=== PATIENT | male | born 1935 | race Caucasian/White ===

== ENCOUNTER 2018-01-28 10:45 | Inpatient (IN) | payer OTHER, MEDICARE ==
[2018-01-28] MEDS ORDERED: PANTOPRAZOLE 40 MG INJ ONE ×2 (11:57→21:37)
[2018-01-28] MEDS: PANTOPRAZOLE INJ 80 MG in NA CHLORIDE 0.9% 250 ML IV SCH ×2 (12:00→21:27)
--- NOTE | 2018-01-28 12:04 | RAD REPORT ---
EXAM DESCRIPTION: CT - Head Brain Wo Cont - 01/28/2018 11:54 am CLINICAL HISTORY: Dizziness, fall, head injury. COMPARISON: None. TECHNIQUE: All CT scans are performed using dose optimization technique as appropriate and may inclu de automated exposure control or mA/KV adjustment according to patient size. FINDINGS: No intracranial hemorrhage, hydrocephalus or extra-axial fluid collection.Moderate general ized brain atrophy is noted.No areas of brain edema or evidence of midline shift. The paranasal sinuses and mastoids are clear. The calvarium is intact. IMPRESSION: No acute intracranial abnormality.
[2018-01-28 12:05] LABS: Absolute Lymphocytes (CBC) 2.1 K/uL (0.7-4.9); Absolute Monocytes 0.6 K/uL (0.1-1.3); Absolute Neutrophil 10.7 K/uL (1.8-8.0); Basophils % 0.3 % (0-1.3); Eosinophils % 0.1 % (0-4.4); Hematocrit 28.8 % (39.6-49.0); MCH 27.8 pg (27.0-35.0); MCV 87.4 fL (80-100); Monocytes % 4.1 % (3.3-12.3); RBC Red Blood Cell Count 3.29 M/uL (4.33-5.43)
--- NOTE | 2018-01-28 12:08 | RAD REPORT ---
EXAM DESCRIPTION: CT - Abdomen Pelvis Wo Contrast - 01/28/2018 11:56 am CLINICAL HISTORY: Abdominal pain. GI bleed. COMPARISON: 05/05/2011 TECHNIQUE: CT imaging of the abdomen and pelvis was performed without contrast. Solid organ, bowel a nd vascular assessment is limited due to lack of IV and oral contrast. All CT scans are performed using dose optimization technique as appropriate and may include automated exposure control or mA/KV adjustment according to patient size. FINDINGS: The lower lung sweeney are clear. The liver, spleen, pancreas, adrenal glands and kidneys are within normal limits for a limited non-co ntrast examination. No bowel obstruction, free air, free fluid or abscess. The appendix is normal. Sigmoid diverticulosi s coli is seen. The osseous structures are within normal limits.Fat containing inguinal hernias are present, slightly larger on the left. IMPRESSION: No acute intra-abdominal or pelvic findings. Sigmoid diverticulosis coli without diverticulitis. Fat containing inguinal hernias bilaterally, slightly greater on the left. A limited non-contrast examination was performed as detailed.
--- NOTE | 2018-01-28 12:08 | RAD REPORT ---
EXAM DESCRIPTION: RAD - Chest Single View - 01/28/2018 12:04 pm CLINICAL HISTORY: Diabetes, chest pain COMPARISON: 03/08/2014, 05/05/2011 FINDINGS: Portable technique limits examination quality. The lungs are grossly clear. The heart is normal in size. No displaced fractures. IMPRESSION: No acute intrathoracic process suspected.
[2018-01-28] MEDS ORDERED: NA CHLORIDE 0.9% 1,000 ML ONE ×2 (12:11→13:45)
[2018-01-28 12:12] LABS: Protime INR 1.15
[2018-01-28 12:17] LABS: Potassium 4.5 mEq/L (3.6-5.0)
[2018-01-28 12:23] LABS: Albumin 3.9 g/dL (3.2-5.5); Bilirubin Direct 0.1 mg/dL (0-0.2); Bilirubin Total 0.5 mg/dL (0.3-1.2); Magnesium 1.9 mg/dL (1.8-2.5); Protein, Total 6.7 g/dL (6.0-8.3)
[2018-01-28 12:25] LABS: CKMB Creatine Kinase MB 5.5 ng/ml (0.3-4.0)
--- NOTE | 2018-01-28 13:07 | ER ---
Nurse's Notes [facility] Name: Bryn Richards Age: 83 yrs Sex: Male : 1935 Arrival Date: 01/28/2018 Time: 10:45 Bed 20 Private MD: Fazal Lentz E Diagnosis: Gastrointestinal hemorrhage, unspecified;Anemia, unspecified;Unspecified atrial fibrillation Presentation: 01/28 10:59 Presenting complaint: Patient states: Decreased appetite, diarrhea, and difficulty hb sleeping x 3 days, dizziness x 2 days. Dizziness is worse when he stands up. Transition of care: patient was not received from another setting of care. Onset of symptoms is unknown. Care prior to arrival: None. 10:59 Method Of Arrival: Wheelchair hb 10:59 Acuity: CORBY 3 hb Triage Assessment: 11:29 General: Appears in no apparent distress. uncomfortable, Behavior is calm, cooperative, hj appropriate for age. Pain: Denies pain. EENT: No signs and/or symptoms were reported regarding the EENT system. Neuro: Level of Consciousness is awake, alert, obeys commands, Oriented to person, place, time, situation, Appropriate for age. Neuro: Reports dizziness. Cardiovascular: Capillary refill < 3 seconds Patient's skin is warm and dry. Respiratory: Airway is patent Respiratory effort is even, unlabored, Respiratory pattern is regular, symmetrical. GI: No signs and/or symptoms were reported involving the gastrointestinal system. GI: Reports diarrhea, nausea, vomiting. : No signs and/or symptoms were reported regarding the genitourinary system. Derm: No signs and/or symptoms reported regarding the dermatologic system. Musculoskeletal: No signs and/or symptoms reported regarding the musculoskeletal system. Historical: - Allergies: 11:06 PENICILLINS; hb 11:06 Prednisone; hb 11:06 Amiodarone; hb 11:06 Multaq; hb - Home Meds: 11:06 Calcium Carbonate Oral [Active]; clopidogrel 75 mg oral tab 1 tab once daily [Active]; hb finasteride 5 mg oral tab 1 tab once daily [Active]; gabapentin 300 mg oral cap 1 cap 3 times per day [Active]; glipizide 5 mg Oral tab 1 tab 2 times per day [Active]; Januvia 100 mg oral tab 1 tab once daily [Active]; losartan 50 mg oral tab 1 tab once daily [Active]; Metoprolol Tartrate Oral [Active]; Pravachol 40 mg Oral tab 1 tab once daily [Active]; tamsulosin 0.4 mg oral cp24 1 cap once daily [Active]; vitamin K59-ttuih acid 500-400 mcg oral tab [Active]; Xarelto 15 mg oral tab [Active]; - PMHx: 11:06 Diabetes - NIDDM; Atrial Fib; hb - PSHx: 11:06 Heart stents; back; Left elbow; Prostate CA; hb - Immunization history:: Adult Immunizations up to date. - Social history:: Smoking status: Patient/guardian denies using tobacco. Screenin:29 Abuse screen: Denies threats or abuse. Denies injuries from another. Nutritional hj screening: No deficits noted. Tuberculosis screening: No symptoms or risk factors identified. Fall Risk None identified. Assessment: 11:31 Reassessment: see triage assessment;. hj 12:30 Reassessment: Patient and/or family updated on plan of care and expected duration. Pain hj level reassessed. Patient is alert, oriented x 3, equal unlabored respirations, skin warm/dry/pink. 13:30 Reassessment: Patient and/or family updated on plan of care and expected duration. Pain hj level reassessed. Patient is alert, oriented x 3, equal unlabored respirations, skin warm/dry/pink. Patient states feeling better. Patient states symptoms have improved. 14:12 Reassessment: Patient and/or family updated on plan of care and expected duration. Pain hj level reassessed. Patient is alert, oriented x 3, equal unlabored respirations, skin warm/dry/pink. for admit; awaiting orders;. 15:26 Reassessment: Patient and/or family updated on plan of care and expected duration. Pain hj level reassessed. Patient is alert, oriented x 3, equal unlabored respirations, skin warm/dry/pink. to ICU bed 2;. 16:22 Reassessment: ICU nurse informed about nursing order on [employer] and platelets need to hj be infused before midnight tonight per exp date;. Vital Signs: 11:01 BP 101 / 52; Pulse 89; Resp 18; Temp 97.5(O); Pulse Ox 100% ; Pain 0/10; hb 11:30 BP 89 / 45; Pulse 90; Resp 18; Pulse Ox 100% on R/A; hj 12:22 BP 92 / 53; Pulse 93; Resp 18; Pulse Ox 100% on R/A; hj 12:48 BP 99 / 60; Pulse 86; Resp 18; Pulse Ox 100% on R/A; hj 12:59 BP 112 / 55; Pulse 82; Resp 18; Pulse Ox 100% on R/A; hj 13:30 BP 115 / 56; Pulse 85; Resp 18; Pulse Ox 100% on R/A; hj 14:11 BP 114 / 57; Pulse 83; Resp 18; Pulse Ox 100% on R/A; hj 15:26 BP 117 / 62; Pulse 85; Resp 18; Pulse Ox 10% on R/A; hj 16:23 BP 115 / 65; Pulse 84; Resp 18; Pulse Ox 100% on R/A; hj ED Course: 10:45 Patient arrived in ED. as 10:45 Fazal Lentz MD is Private Physician. as 11:01 Triage completed. hb 11:01 Arm band placed on right wrist. hb 11:07 George Calderón RN is Primary Nurse. hj 11:12 Bryce Decker NP is PHCP. pm1 11:12 Siddhartha Cornejo MD is Attending Physician. pm1 11:31 Patient has correct armband on for positive identification. Placed in gown. Bed in low hj position. Call light in reach. Side rails up X 1. Adult w/ patient. 11:51 Initial lab(s) drawn, by me, sent to lab. EKG done, by ED staff, reviewed by Bryce Decker [employer] PL[employer] MECH[employer]IC. Inserted saline lock: 22 gauge in right antecubital area, using aseptic technique. Blood collected. 11:53 Inserted saline lock: 22 gauge in left wrist, using aseptic technique. hj 11:54 CT completed. Patient moved to CT via stretcher. Patient moved back from CT. cw1 11:54 CT Head Brain wo Cont In Process Unspecified. EDMS 11:57 CT Abd/Pelvis - Without Cont In Process Unspecified. EDMS 12:02 X-ray completed. Patient tolerated procedure well. kp1 12:03 XRAY Chest (1 view) In Process Unspecified. EDMS 13:04 Janeth Baez MD is Hospitalizing Provider. pm1 15:33 No provider procedures requiring assistance completed. Patient admitted, IV remains in hj place. intact. Administered Medications: 11:35 Drug: ProTONIX 40 mg Route: IVP; Site: left wrist; hj 12:16 Follow up: Response: No adverse reaction hj 12:11 Drug: NS 0.9% 1000 ml Route: IV; Rate: 1000 ml; Site: right antecubital; hj 15:27 Follow up: IV Status: Completed infusion hj 12:12 Drug: ProTONIX 8 mg/hr Route: IV; Rate: 25 ml/hr; Site: left wrist; hj 15:14 Follow up: IV Status: Infusion continued upon admission hj 13:24 Drug: NS 0.9% 1000 ml Route: IV; Rate: 100 ml/hr; Site: right antecubital; hj 13:28 Follow up: IV Status: Infusion continued upon admission Outcome: 13:06 Decision to Hospitalize by Provider. pm1 15:33 Admitted to ICU accompanied by nurse, family with patient, via wheelchair, room 2, with chart, Report called to PEGGY Odell 15:33 Condition: stable 15:33 Instructed on the need for admit, Demonstrated understanding of instructions. 16:23 Patient left the ED. Signatures: Dispatcher [employer] EDMS Waqar Grubbs jb1 uSsan Lyle Crystal cw1 George Calderón RN RN Bryce Kowalski NP [employer]CH[employer] pm1 Chantale Claros RN RN Fariba Arguelles kp1 Corrections: (The following items were deleted from the chart) 11:06 11:01 Pulse 89bpm; Resp 18bpm; Pulse Ox 100%; Temp 97.5F Oral; Pain 0/10; hb hb
--- NOTE | 2018-01-28 13:07 | EDPHYS ---
Physician Documentation [facility] Name: Bryn Richards Age: 83 yrs Sex: Male : 1935 Arrival Date: 01/28/2018 Time: 10:45 Bed 20 Private MD: Fazal Lentz E ED Physician Siddhartha Cornejo HPI: 01/28 12:00 This 83 yrs old Male presents to ER via Wheelchair with complaints of pm1 Dizziness. 12:00 The patient presents with generalized weakness, and melena. Onset: The symptoms/episode pm1 began/occurred 2 day(s) ago. Context: occurred at home. Associated signs and symptoms: Pertinent negatives: abdominal pain, chest pain, nausea, shortness of breath, vomiting. Patient's baseline: Neuro: alert and fully oriented, Motor: no deficits, Ambulation: walks without assistance, The patient has a previous history of Atrial fibrillation on Xarelto and Plavix. The patient has not experienced similar symptoms in the past. The patient has not recently seen a physician, the patient's primary care provider is Dr. Fazal Lentz. Patient with complaints of dizziness for 2 days with onset of black tarry diarrhea yesterday. No nausea or vomiting. Patient's dizziness occurs with changes in position. No chest pain or shortness of breath. Patient reports fall about 1-2 weeks ago. Tripped while sweeping outside. Hit his head on the ground with contusion to occipital area and abrasion to left forearm. No LOC. No headache or neck pain. 12:00 Black tarry bowel movement, total 3 episodes. Twice yesterday and once today.. pm1 Historical: - Allergies: 11:06 PENICILLINS; hb 11:06 Prednisone; hb 11:06 Amiodarone; hb 11:06 Multaq; hb - Home Meds: 11:06 Calcium Carbonate Oral [Active]; clopidogrel 75 mg oral tab 1 tab once daily [Active]; hb finasteride 5 mg oral tab 1 tab once daily [Active]; gabapentin 300 mg oral cap 1 cap 3 times per day [Active]; glipizide 5 mg Oral tab 1 tab 2 times per day [Active]; Januvia 100 mg oral tab 1 tab once daily [Active]; losartan 50 mg oral tab 1 tab once daily [Active]; Metoprolol Tartrate Oral [Active]; Pravachol 40 mg Oral tab 1 tab once daily [Active]; tamsulosin 0.4 mg oral cp24 1 cap once daily [Active]; vitamin I68-xrnfx acid 500-400 mcg oral tab [Active]; Xarelto 15 mg oral tab [Active]; - PMHx: 11:06 Diabetes - NIDDM; Atrial Fib; hb - PSHx: 11:06 Heart stents; back; Left elbow; Prostate CA; hb - Immunization history:: Adult Immunizations up to date. - Social history:: Smoking status: Patient/guardian denies using tobacco. ROS: 12:00 Constitutional: Negative for fever, chills, and weight loss, Eyes: Negative for injury, pm1 pain, redness, and discharge, ENT: Negative for injury, pain, and discharge, Neck: Negative for injury, pain, and swelling, Cardiovascular: Negative for chest pain, palpitations, and edema, Respiratory: Negative for shortness of breath, cough, wheezing, and pleuritic chest pain. 12:00 Back: Negative for injury and pain, : Negative for injury, bleeding, discharge, and swelling, MS/Extremity: Negative for injury and deformity, Skin: Negative for injury, rash, and discoloration. 12:00 Abdomen/GI: Positive for black/tarry stool, Negative for abdominal pain, nausea and vomiting. 12:00 Neuro: Positive for dizziness, weakness, Negative for seizure activity, syncope, near syncope. Exam: 12:00 Constitutional: This is a well developed, well nourished patient who is awake, alert, pm1 and in no acute distress. Head/Face: Normocephalic, atraumatic. Eyes: Pupils equal round and reactive to light, extra-ocular motions intact. Lids and lashes normal. Conjunctiva and sclera are non-icteric and not injected. Cornea within normal limits. Periorbital areas with no swelling, redness, or edema. ENT: Nares patent. No nasal discharge, no septal abnormalities noted. Tympanic membranes are normal and external auditory canals are clear. Oropharynx with no redness, swelling, or masses, exudates, or evidence of obstruction, uvula midline. Mucous membranes moist. Neck: Trachea midline, no thyromegaly or masses palpated, and no cervical lymphadenopathy. Supple, full range of motion without nuchal rigidity, or vertebral point tenderness. No Meningismus. Chest/axilla: Normal chest wall appearance and motion. Nontender with no deformity. No lesions are appreciated. Cardiovascular: Regular rate and rhythm with a normal S1 and S2. No gallops, murmurs, or rubs. Normal PMI, no JVD. No pulse deficits. Respiratory: Lungs have equal breath sounds bilaterally, clear to auscultation and percussion. No rales, rhonchi or wheezes noted. No increased work of breathing, no retractions or nasal flaring. 12:00 Back: No spinal tenderness. No costovertebral tenderness. Full range of motion. 12:00 MS/ Extremity: Pulses equal, no cyanosis. Neurovascular intact. Full, normal range of motion. 12:00 Abdomen/GI: Inspection: abdomen appears normal, Bowel sounds: normal, Palpation: abdomen is soft and non-tender, Rectal exam: rectal tone normal, Stool: guaiac positive, black, hemorrhoid(s), are not appreciated, external, mass, is not appreciated, tenderness, is not appreciated, the exam is chaperoned by an furniture repair technician. 12:00 Skin: Appearance: normal except for affected area, Color: pale, yellow-brownish bruise to Left lower anterior ribs, non-tender and yellow-brownish bruise to left forearm, non-tender. 12:00 Neuro: Orientation: is normal, Mentation: is normal, Motor: moves all fours, left arm with decreased range of motion at elbow. Prior injury about 15 years ago, Sensation: is normal. Vital Signs: 11:01 BP 101 / 52; Pulse 89; Resp 18; Temp 97.5(O); Pulse Ox 100% ; Pain 0/10; hb 11:30 BP 89 / 45; Pulse 90; Resp 18; Pulse Ox 100% on R/A; hj 12:22 BP 92 / 53; Pulse 93; Resp 18; Pulse Ox 100% on R/A; hj 12:48 BP 99 / 60; Pulse 86; Resp 18; Pulse Ox 100% on R/A; hj 12:59 BP 112 / 55; Pulse 82; Resp 18; Pulse Ox 100% on R/A; hj 13:30 BP 115 / 56; Pulse 85; Resp 18; Pulse Ox 100% on R/A; hj 14:11 BP 114 / 57; Pulse 83; Resp 18; Pulse Ox 100% on R/A; hj 15:26 BP 117 / 62; Pulse 85; Resp 18; Pulse Ox 10% on R/A; hj 16:23 BP 115 / 65; Pulse 84; Resp 18; Pulse Ox 100% on R/A; hj MDM: 11:16 Patient medically screened. pm1 13:02 Data reviewed: vital signs. Data interpreted: Pulse oximetry: on room air is 100 %. pm1 Interpretation: normal. Counseling: I had a detailed discussion with the patient and/or guardian regarding: the historical points, exam findings, and any diagnostic results supporting the discharge/admit diagnosis, lab results, radiology results, the need for further work-up and treatment in the hospital. 15:07 Physician consultation: Fazal Manzanares MD was contacted at 14:16, regarding consult, pm1 patient's condition, would like admission per Dr. Janeth Baez MD 1 unit apheresis platelets, serial h\T\h Q6, stop plavix and xarelto, consent for egd and colonoscopy for procedure tomorrow. 01/28 11:32 Order name: Basic Metabolic Panel pm1 01/28 11:32 Order name: BNP; Complete Time: 12:26 pm1 01/28 11:32 Order name: CBC with Diff; Complete Time: 12:36 pm1 01/28 11:32 Order name: Ckmb; Complete Time: 12:26 pm1 01/28 11:32 Order name: CPK; Complete Time: 12:26 pm1 01/28 11:32 Order name: LFT's; Complete Time: 12:26 pm1 01/28 11:32 Order name: Magnesium; Complete Time: 12:26 pm1 01/28 11:32 Order name: PT-INR; Complete Time: 12:36 pm01/28 11:32 Order name: Ptt, Activated; Complete Time: 12:36 pm1 01/28 11:32 Order name: Troponin (emerg Dept Use Only); Complete Time: 12:23 pm1 01/28 11:32 Order name: Type And Screen pm01/28 11:32 Order name: Lipase; Complete Time: 12:26 pm1 01/28 11:32 Order name: Basic Metabolic Panel; Complete Time: 12:26 EDMS 01/28 14:38 Order name: Basic Metabolic Panel EDMS 01/28 14:38 Order name: Basic Metabolic Panel EDMS 01/28 14:38 Order name: Basic Metabolic Panel EDMS 01/28 14:38 Order name: Basic Metabolic Panel EDMS 01/28 14:38 Order name: CBC with Automated Diff EDMS 01/28 14:38 Order name: CBC with Automated Diff EDMS 01/28 14:38 Order name: CBC with Automated Diff EDMS 01/28 14:38 Order name: CBC with Automated Diff EDMS 01/28 14:38 Order name: Hematocrit EDMS 01/28 14:38 Order name: Hematocrit EDMS 01/28 14:38 Order name: Hematocrit EDMS 01/28 14:38 Order name: Hematocrit EDMS 01/28 14:38 Order name: Hemoglobin EDMS 01/28 14:38 Order name: Hemoglobin EDMS 01/28 14:38 Order name: Hemoglobin EDMS 01/28 14:38 Order name: Hemoglobin EDMS 01/28 15:15 Order name: Bb Add On bd 01/28 11:32 Order name: XRAY Chest (1 view); Complete Time: 12:10 pm01/28 11:32 Order name: EKG; Complete Time: 11:32 pm01/28 11:32 Order name: Cardiac monitoring; Complete Time: 11:34 pm01/28 11:32 Order name: EKG - Nurse/Tech; Complete Time: 11:34 pm01/28 11:32 Order name: IV Saline Lock; Complete Time: 11:52 pm01/28 11:32 Order name: Labs collected and sent; Complete Time: 11:52 pm01/28 11:32 Order name: O2 Per Protocol; Complete Time: 11:34 pm01/28 11:32 Order name: O2 Sat Monitoring; Complete Time: 11:34 pm01/28 11:32 Order name: Urine Dipstick-Ancillary (obtain specimen); Complete Time: 15:14 pm01/28 11:32 Order name: CT Head Brain wo Cont; Complete Time: 12:10 pm01/28 11:32 Order name: NPO; Complete Time: 11:32 pm01/28 11:50 Order name: CT Abd/Pelvis - Without Cont; Complete Time: 12:10 pm1 01/28 14:38 Order name: CONS Pharmacy Consult EDMS 01/28 14:38 Order name: CONS Physician Consult EDMS 01/28 15:18 Order name: Urine Dipstick--Ancillary (enter results) bd 01/28 15:18 Order name: Urine Microscopic Only bd 01/28 15:35 Order name: Urine Dipstick-Ancillary EDWI 01/28 15:39 Order name: Urine Microscopic Only EDWI Administered Medications: 11:35 Drug: ProTONIX 40 mg Route: IVP; Site: left wrist; hj 12:16 Follow up: Response: No adverse reaction hj 12:11 Drug: NS 0.9% 1000 ml Route: IV; Rate: 1000 ml; Site: right antecubital; hj 15:27 Follow up: IV Status: Completed infusion hj 12:12 Drug: ProTONIX 8 mg/hr Route: IV; Rate: 25 ml/hr; Site: left wrist; hj 15:14 Follow up: IV Status: Infusion continued upon admission hj 13:24 Drug: NS 0.9% 1000 ml Route: IV; Rate: 100 ml/hr; Site: right antecubital; hj 13:28 Follow up: IV Status: Infusion continued upon admission hj Disposition: 18:41 Co-signature as Attending Physician, Siddhartha Cornejo MD. rn Disposition: 01/28/18 13:06 Hospitalization ordered by Janeth Baez for Inpatient Admission. Preliminary diagnosis are Gastrointestinal hemorrhage, unspecified, Anemia, unspecified, Unspecified atrial fibrillation. - Bed requested for Intensive Care Unit. - Status is Inpatient Admission. hj - Condition is Fair. - Problem is new. - Symptoms have improved. UTI on Admission? No Signatures: Dispatcher [employer] [facility] Callie Mojica Diana, RN RN Siddhartha Cornejo MD MD rn Joaquin, Henry, RN RN hj Marinas, Patrick, NP [employer] PATTERNMAKER pm1 Chantale Claros RN RN Corrections: (The following items were deleted from the chart) 12:54 12:00 Patient with complaints of dizziness for 2 days with onset of black tarry pm1 diarrhea yesterday. No nausea or vomiting. Patient's dizziness occurs with changes in position. No chest pain or shortness of breath. Patient reports fall about 1-2 weeks ago. Hit his head on the ground with contusion and abrasion to left forearm. No LOC. No headache or neck pain. pm1
[2018-01-28] MEDS ORDERED: ACETAMINOPHEN 500 MG TAB PO PRN (14:34)
[2018-01-28] MEDS ORDERED: ONDANSETRON 4 MG/2 ML VIAL IV PRN (14:34)
[2018-01-28] MEDS ORDERED: GLUCAGON 1 MG/VIAL IM PRN (14:48)
[2018-01-28] MEDS ORDERED: D50W 25 GM/50 ML SYRINGE IV PRN (14:48)
--- NOTE | 2018-01-28 14:57 | EKG ---
Test Date: 2018-01-28 Test Time: 11:28:43 Tow Operator: AZUCENA MEASUREMENT RESULTS: Intervals: Rate: 95 MA: QRSD: 102 QT: 344 QTc: 432 [place]: P: MA: QRS: 24 T: 191 INTERPRETIVE STATEMENTS: Atrial fibrillation ST & T wave abnormality, consider lateral ischemia Abnormal ECG Compared to ECG 08/30/2017 07:47:05 ST (T wave) deviation now present Possible ischemia now present Sinus rhythm no longer present T-wave abnormality no longer present Electronically Signed On 01-28-18 14:56:35 CDT by Wilber Awan
[2018-01-28] MEDS ORDERED: NA CHLORIDE 0.9% 250 ML IV SCH (15:00)
[2018-01-28 15:35] LABS: Urine Blood NEGATIVE (NEG); Urine Glucose NEGATIVE (NEG); Urine Protein NEGATIVE (NEG)
[2018-01-28 15:38] LABS: Urine RBC <5 /HPF (NONE SEEN)
[2018-01-28 15:39] LABS: Urine Bacteria <20 /HPF (NONE SEEN); Urine Culture Reflex Order NOT NEEDED; Urine Mucus SLIGHT /HPF (NONE SEEN)
[2018-01-28] MEDS: INSULIN -REGULAR HUMAN 50 UNIT/0.5 ML ML SQ SCH ×2 (16:30→20:56)
[2018-01-28] MEDS: D5 0.45 NS 1,000 ML IV SCH (16:55)
[2018-01-28] MEDS ORDERED: NA CHLORIDE 0.9% 50 ML ONE (17:13)
[2018-01-28 19:24] LABS: MPV 7.1 fL (7.6-11.3)
[2018-01-28 19:26] LABS: Hematocrit 26.8 % (39.6-49.0)
[2018-01-28 20:19] LABS: Platelet Estimate ADEQ
[2018-01-28 20:45] LABS: Urine Appearance CLEAR; Urine Bacteria <20 /HPF (NONE SEEN); Urine Bilirubin NEGATIVE (NEG); Urine Blood NEGATIVE (NEG); Urine Color YELLOW; Urine Culture Reflex Order NOT NEEDED; Urine Glucose NEGATIVE (NEG); Urine Mucus NS /HPF (NONE SEEN); Urine Protein NEGATIVE (NEG); Urine RBC <5 /HPF (NONE SEEN); Urine Urobilinogen 0.2 mg/dL (0.2-1.0); Urine pH 5.5 (5.0-7.0)
[2018-01-28] MEDS: TAMSULOSIN 0.4 MG SR CAP PO SCH (20:55)
[2018-01-28] MEDS: ATORVASTATIN 10 MG TAB PO SCH (20:55)
[2018-01-28] MEDS: GABAPENTIN 300 MG CAP PO SCH (20:55)
[2018-01-28] MEDS ORDERED: HOME MED 1 EA UNK (Pravastatin Sodium [Pravastatin Sodium] 40 MG) PO SCH (21:00)
[2018-01-28] MEDS ORDERED: HOME MED 1 EA UNK (Gabapentin [Gralise] 300 MG) PO SCH (21:00)
[2018-01-28] MEDS ORDERED: NA CHLORIDE 0.9% 250 ML ONE (21:37)
[2018-01-29 00:15] LABS: Hematocrit 25.1 % (39.6-49.0)
--- NOTE | 2018-01-29 01:33 | HP ---
Date of Admission: 01/28/2018 Consultants: Dr. Glenna RENEE. Chief Complaint: Dizziness. History Of Present Illness: The patient is an 83-year-old male with past medical history of atrial fibrillation on Xarelto, coronary artery disease, Plavix, diabetes, who was in his usual state of health until 1 week prior to admission when the patient had a fall after feeling dizzy. The patient for the past few days has been lethargic, feeling dizzy while walking, and has had a decreased appetite. The patient states that he has had multiple episodes of melanotic stools. He was recently restarted on his Xarelto in October of 2017, also takes Plavix. The patient patient's symptoms are constant, moderate, progressively worsening. He denies any chest pain, shortness of breath, cough, fever, or chills. No significant abdominal pain. No nausea or vomiting. The patient came into the ER for further evaluation. His workup revealed a hemoglobin of 9.1. His white count was elevated at 13.4, creatinine was 1.94, which seems to be around his baseline. Troponin was negative. Imaging studies including head CT scan was negative. CT of the abdomen showed diverticulosis. The patient was referred for admission. The patient's symptoms are constant, moderate, and progressively worsening. No aggravating factors. The patient's dizziness is alleviated by lying down. When seen in the ER, the patient was awake, alert, oriented x3, in some mild distress. Past Medical History: Chronic kidney disease, diabetes, atrial fibrillation on Xarelto, history of prostate cancer in 1991, status post radiation therapy. Past Surgical History: Left elbow surgery. Allergies: TO AMIODARONE, PENICILLIN, AND PREDNISONE. Medications: Reviewed. Social History: The patient is and lives alone. Able to perform his activities of daily living. Does use a cane for assistance with ambulation. Has good social support. Denies any tobacco use, alcohol use, or illicit drug use. Has couple of daughters. Family History: Mother had diabetes. Review of Systems: An 11-point system reviewed, negative except as per HPI. Physical Examination: Vital Signs: Blood pressure 101/52, pulse 89, respirations 18, temperature 97.5 , pulse ox 100% on room air. General: Awake, alert, oriented x3, in some mild distress, elderly, obese male , somewhat ill appearing. HEENT: Normocephalic, atraumatic. PERRLA. EOMI. Dry mucous membranes. Oropharynx is clear. Conjunctivae are anicteric. Neck: Supple. No JVD. Trachea midline. CV: S1, S2. Irregularly irregular. Peripheral pulses are present. No murmurs. Respiratory: Moving air well bilaterally. No wheezing. No stridor. No use of accessory muscles. Gastrointestinal: Soft. Abdomen: Nontender, nondistended. Positive bowel sounds. No guarding or rigidity. No palpable masses. Extremities: No clubbing, cyanosis, or edema. No calf tenderness. Integumentary: The patient does have multiple abrasions and ecchymoses on his scalp, elbow, and abdomen from his previous fall. Psych: Mood is okay. Affect is full. Insight and judgment are good. Laboratory Data: Sodium 140, potassium 4.5, chloride 114, CO2 20, BUN 82, creatinine 1.94, glucose 199, calcium 10.6, magnesium 1.9. Troponin less than 0.03. BNP 98. Lipase 29. INR 1.15. WBC 13.4, H and H 9.1 and 28.8, platelets 214, neutrophils 79.5%. INR 1.15. CT scan of the abdomen and pelvis personally reviewed shows no acute intraabdominal or pelvic finding, sigmoid diverticulosis coli without diverticulitis, containing inguinal hernias bilaterally, slightly greater on the left. Head CT scan shows no acute intracranial abnormality. Personally reviewed. Chest x-ray shows no intrathoracic process identified. EKG shows atrial fibrillation at a rate of 95. Assessment And Plan: An 83-year-old male with: 1. Acute gastrointestinal bleed with melanotic stools. We will monitor serial H and H, transfuse if less than 7. We will obtain GI consultation. ER contacted Dr. Manzanares who will see the patient, likely secondary to blood thinner. The patient is on Xarelto and Plavix. We will hold blood thinner for now. We will get Cardiology involved. 2. Acute blood loss anemia. Monitor H and H, transfuse as needed. The patient's baseline is around 13. We will start on IV PPI. 3. Chronic kidney disease. Creatinine is slightly above baseline. We will continue to monitor and avoid NSAIDs and nephrotoxins. 4. Hypercalcemia, mild. We will continue with IV fluids. 5. Diabetes mellitus type 2 with hyperglycemia, non-insulin dependent. We will place on sliding scale insulin. 6. Atrial fibrillation with controlled ventricular rate. We will hold Xarelto for now and place on cardiac telemetry. 7. History of prostate cancer status post radiation therapy. 8. Leukocytosis with neutrophilia. We will check UA. Chest x-ray is negative for any acute changes. 9. Status post fall. We will order a PT evaluation. Place on bedrest and fall precautions. 10. Gastrointestinal and deep venous thrombosis prophylaxis with PPI and SCDs. No chemical anticoagulation due to bleed. Plan: Admit the patient to ICU, place as inpatient. Patient does have MPOA and living will /CORINE Voice ID: [id number] IMAN
[2018-01-29] MEDS: D5 0.45 NS 1,000 ML IV SCH ×3 (02:42→23:26)
[2018-01-29 05:37] LABS: Absolute Lymphocytes (CBC) 1.7 K/uL (0.7-4.9); Absolute Monocytes 0.4 K/uL (0.1-1.3); Absolute Neutrophil 4.1 K/uL (1.8-8.0); Basophils % 0.6 % (0-1.3); Eosinophils % 2.4 % (0-4.4); Hematocrit 23.3 % (39.6-49.0); Lymphocytes % 26.2 % (15.3-44.8); MCH 28.6 pg (27.0-35.0); MCV 86.9 fL (80-100); MPV 6.8 fL (7.6-11.3); Monocytes % 6.7 % (3.3-12.3); RBC Red Blood Cell Count 2.69 M/uL (4.33-5.43)
[2018-01-29] MEDS: INSULIN -REGULAR HUMAN 50 UNIT/0.5 ML ML SQ SCH ×4 (07:30→20:49)
[2018-01-29] MEDS: GLIPIZIDE S.A. 5 MG TAB PO SCH (08:00)
[2018-01-29] MEDS: FINASTERIDE 5 MG TAB PO SCH (08:08)
[2018-01-29] MEDS: SITAGLIPTIN PHOS 100 MG TAB PO SCH (08:09)
[2018-01-29] MEDS: GABAPENTIN 300 MG CAP PO SCH ×2 (08:09→20:50)
[2018-01-29] MEDS: PANTOPRAZOLE INJ 80 MG in NA CHLORIDE 0.9% 250 ML IV SCH ×2 (08:11→20:51)
[2018-01-29] MEDS ORDERED: HOME MED 1 EA UNK (Glipizide [Glipizide Er] 10 MG) PO SCH (09:00)
[2018-01-29] MEDS ORDERED: METOPROLOL XL 25 MG TAB PO SCH (09:00)
[2018-01-29] MEDS ORDERED: LOSARTAN POTASSIUM 50 MG TABLET PO SCH (09:00)
[2018-01-29 09:19] LABS: Hematocrit 25.4 % (39.6-49.0)
[2018-01-29] MEDS ORDERED: PROPOFOL 200 MG/20 ML VIAL IV ONE (12:54)
[2018-01-29] MEDS ORDERED: NA CHLORIDE 0.9% 1,000 ML ONE (12:56)
--- NOTE | 2018-01-29 13:06 | PN ---
Date of Progress Note: 01/29/2018 Subjective: The patient seen and examined. Chart reviewed and case discussed with RN. The patient is going for EGD today. No further melanotic stools. Review of Systems: Negative except as above. Medications: Reviewed. Physical Examination: Vital Signs: Temperature 97, heart rate 83, blood pressure 92/52, respirations 23, O2 98% on room ai r. General: Awake, alert, and oriented x3. Elderly male, somewhat ill-appearing. CV: S1, S2. Irregularly irregular. Peripheral pulses present bilaterally. Respiratory: Moving air well bilaterally. No wheezing. Abdomen: Soft, nontender, nondistended. Positive bowel sounds. Extremities: No clubbing, cyanosis, or edema. Neurologic: Nonfocal. Laboratory Data: Sodium 141, potassium 4, chloride 116, CO2 22, BUN 55, creatinine 1.52, glucose 177 , calcium 9.6. WBC 6.4, H and H 7.7, hematocrit 23.3, and platelets 148. Assessment And Plan: An 83-year-old male with; 1.Acute gastrointestinal bleed with melanotic stools going for EGD today. We will continue to monit or closely. Hold Xarelto and Plavix. Likely secondary to anticoagulants. 2.Acute blood loss anemia. Monitor hemoglobin and hematocrit. The patient did have a drop in his h emoglobin. We will transfuse if less than 7. Continue IV PPI. 3.Chronic kidney disease. We will continue to monitor creatinine, currently improving, close to bas ayo. 4.Hypercalcemia, resolved. 5.Diabetes mellitus type 2 with hyperglycemia, noninsulin dependent. Continue sliding scale insulin . 6.Atrial fibrillation with controlled ventricular rate. Xarelto on hold due to GI bleed. 7.History of prostate cancer status post radiation therapy. 8.Leukocytosis with neutrophilia, resolved. 9.Status post fall 1 week ago, mechanical. We will have PT evaluation. 10.Gastrointestinal and deep venous thrombosis prophylaxis, PPI and SCDs. SA/MODL Voice ID: [id number] Report ID: [id number]
--- NOTE | 2018-01-29 13:13 | ENDO RPT ---
[address], [address] EGD PROCEDURE REPORT EXAM DATE: 01/29/2018 PATIENT NAME: Bryn Richards MR#: [id number] BIRTHDATE: 1935 ATTENDING: Fazal Manzanares Dr STATUS: inpatient - [facility] APPEALS ANALYST: Meme Herrera RN and Carmel Holm INDICATIONS: The patient is a 83 yr old Male here for an EGD due to melenic bleeding and anemia PROCEDURE PERFORMED: EGD with biopsy MEDICATIONS: Per Anesthesia. TOPICAL ANESTHETIC: none CONSENT: The patient understands the risks and benefits of the procedure and understands that these risks include, but are not limited to: sedation, allergic reaction, infection, perforation and/or bleeding. Alternative means of evaluation and treatment include, among others: physical exam, x-rays, and/or surgical intervention. The patient elects to proceed with this endoscopic procedure. DESCRIPTION OF PROCEDURE: During intra-op preparation period all mechanical medical equipment was checked for proper function. Hand hygiene and appropriate measures for infection prevention was taken. Procedure, possible complications, and alternatives including but not limited to the possibility of bleeding, perforation, tear, infection, sepsis, need for surgery, need for blood transfusion, and anesthesia related complications were explained to the patient. After the risks, benefits and alternatives of the procedure were thoroughly explained, Informed consent was verified, confirmed and timeout was successfully executed by the treatment team. The patient was placed in the left lateral position. The patient was anesthetized with topical anesthesia. Through the anesthetized oropharyngeal area, the scope was passed without any difficulty. The [id number] ([id number]) endoscope was introduced through the mouth and advanced to the third portion of the duodenum. Retroflexed views revealed a small hiatal hernia. The gastroscope was then slowly withdrawn and removed. A Schatzki's ring was found in the lower esophagus. A small hiatal hernia was found. Multiple (4) 2-3 mm ulcers with surrounding edema were found in the antrum. Multiple biopsies were obtained and sent to pathology. No active bleeding nor old blood noted. ADVERSE EVENTS: There were no complications. IMPRESSIONS: 1. Early Schatzki's ring (no history of dysphagia) in the lower esophagus 2. Small hiatal hernia 3. Multiple (4) small (2-3 mm) clean-based ulcers with surrounding edema in the antrum, s/p biopsies 4. No active bleeding nor old blood RECOMMENDATIONS: 1. await biopsy results 2. acid suppression therapy REPEAT EXAM: Fazal Manzanares Dr eSigned: Fazal Manzanares Dr 01/29/2018 1:13 PM cc: CPT CODES: ICD9 CODES: PATIENT NAME: Bryn Richards MR#: [id number]
[2018-01-29 14:38] LABS: Hematocrit 25.1 % (39.6-49.0)
--- NOTE | 2018-01-29 16:12 | CON ---
History Of Present Illness: Mr. Richards came to the hospital with weakness. He was found to be very an emic. He has had a few transfusions. Mr. Richards has atrial fib and was placed on Xarelto in October o this year, it was 15 mg, which would have been the appropriate dose. He also had been on Plavix si 2007 because of a stent. Aspirin that he had been on was stopped. His most recent stent was 200 8, so nothing close to within a year window when we are very concerned about stopping Plavix, so we c an safely stop Plavix and Xarelto both since he is having bleeding. He has had stents in 2007, atria l fib about a year ago, placed on Xarelto in October because of inability to control the atrial fibri llation. He is not having chest pain or shortness of breath. He has underlying diabetes, hypertensi on, dyslipidemia. Outpatient medications have been Flomax, Pravachol, metoprolol 25 mg daily, Januvia, losartan, gabape ntin, glipizide, Proscar, Plavix, calcium carbonate, Xarelto 15, and vitamin B12. He reports drug in tolerance to amiodarone, dronedarone, penicillins, and prednisone. Since being in the hospital, his lowest hemoglobin was 7.7, most recent one 8.1, several others are pending. His last dose of Xarelto was on January 27 at 5 p.m. this is January 29, 11 a.m. so it is about 40 hours since the last dose of X arelto. So, Xarelto, activity level should be extremely low. His Plavix last dose also was on the and it is very likely that the antiplatelet activity of the Plavix is still very much present. If bl eeding is still there, he might benefit from a platelet transfusion even though his platelet count it self is okay the number of functioning platelets is probably quite low, having taken Plavix as recent ly as 40 hours ago. The patient is not having chest pain, shortness of breath, syncope, presyncope, and the chief complaint was melenic stools, decreased appetite, diarrhea, and dizziness. Physical Examination: His heart is irregularly irregular going about 90 beats per minute. His blood pressure is 105/67, te mperature 97.1, respiratory rate 13, O2 saturation 100% on room air. Abdomen: Soft. Extremities: No significant edema. No cyanosis or clubbing. Laboratory Data: Electrocardiogram reveals atrial fibrillation, nonspecific ST and T-wave abnormalit y not significantly different from older EKGs. Impression: Mr. Richards should not be on aspirin or heparin or Lovenox or Xarelto or Plavix or any othe r blood thinners. He should undergo a GI workup. Hopefully, we can identify the source of the bleed ing, if we do, want to start him back on an anticoagulant. If we are comfortable enough at some poin t that the site of bleeding has been healed, I would recommend Xarelto is the only drug and that we a void giving anti-platelet therapy in addition to the Xarelto. STELLA/CORINE Voice ID: [id number] Report ID: [id number]
[2018-01-29 18:38] LABS: Hematocrit 24.1 % (39.6-49.0)
--- NOTE | 2018-01-29 18:38 | CON ---
Date of Consultation: 01/29/2018 Reason For Consultation: GI bleed with melena and anemia. History Of Present Illness: The patient is an 83-year-old white male with history of diabetes, atrial fibrillation on Xarelto, chronic kidney disease, prostate cancer status post radiation therapy. The patient presented to hospital with dizziness. The patient stated he started having black stools approximately 3 days prior to admission and then started having dizziness as well when he stands up. He had some decreased appetite, some lethargy over the past few days. He notes being on Plavix long-term but was recently started on Xarelto in October in addition to his Plavix. The patient's symptoms have caused him to come but becoming progressively worse. He reports his sought medical attention and came to the emergency room, found to have a hemoglobin of 9.1, this has decreased to 8.2, now down to 7.7. He has a creatinine that is somewhat elevated at 1.94. Troponin I is negative. CT scan of abdomen reveals some diverticulosis, otherwise negative. He denies any hematemesis, coffee-grounds emesis, vomiting, abdominal pain, bloating, belching , or nausea. Past Medical History: Significant for atrial fibrillation on Xarelto, diabetes , chronic kidney disease, prostate cancer in 1991, status post radiation therapy. Past Surgical History: Includes left elbow surgery. Allergies: TO AMIODARONE, PENICILLIN, AND PREDNISONE. Medications: See list. Social History: He is a , 3 daughters. Lives alone and does use cane for assistance with ambulation. He says he has good social support. No tobacco or alcohol. Family History: Mother and father of unknown causes, though chart reviews that his mother had diabetes. Review of Systems: The patient has melena for the past 3 days with fatigue, weakness, dizziness upon standing. Orthostatic presyncope with what appears to be hypotension noted in the emergency room as well. The patient also stated with IV fluids the decrease in the hemoglobin as noted. He denies any chest pain, shortness of breath, seizure, syncope, depression, anxiety, muscle aches, joint aches, backaches, fevers, chills, night sweats, heat or cold intolerance. Physical Examination: Vital Signs: The patient is 5 feet 9 inches, 200 pounds, BMI of 29 kg/m2. Temperature 98.1 degrees Fahrenheit, pulse 78, respirations 30, blood pressure 87/41 with O2 saturation 100%. General: He is elderly sitting in bed, in no acute distress, somewhat hard of hearing. HEENT: Normocephalic, atraumatic. Anicteric. Pupils equal, round, and reactive to light. Extraocular movements are intact. Oropharynx is clear. Neck: Supple. No masses. Respirations: Clear to auscultation bilaterally. Cardiac: Regular rate and rhythm. No gallops or rubs. Abdomen: Positive bowel sounds. Soft, nontender, nondistended. No hepatosplenomegaly. Extremities: No clubbing or cyanosis. No edema. 2+ pulses. Neuro: Alert and oriented x3. Grossly nonfocal. 5/5 motor strength to light touch. The patient does have decreased hearing and wears hearing aids. Laboratory Data: The patient has a PT of 13.6, INR of 1.2, PTT of 24.4. He has a white count of 6.4, hemoglobin 7.7 down from 9.1, hematocrit 23, MCV of 87 , platelet count of 148, polys 64%, lymphocytes 26%, monocytes 7%, eosinophils 2 %. Sodium 141, potassium 4.0, chloride 116, bicarb 22, BUN of 55, creatinine of 1.5, glucose 177, calcium 9.6, magnesium 1.9, total bilirubin 0.5, direct bilirubin 0.1, AST 26, ALT 19, alkaline phosphatase 43, creatine kinase 189, CK- MB of 5.5, troponin I of less than 0.03. B titer peptide of 98, total protein 6.7, albumin 3.9, lipase 29. UA was remarkable for trace leukocyte esterase, otherwise negative. No bacteria noted. No white blood cells noted. Imaging: CT of abdomen and pelvis on the 7th, reveals sigmoid diverticulosis without diverticulitis. Fat containing inguinal hernias bilaterally, slightly greater on the left. Otherwise negative. Impression: 1. Gastrointestinal bleed with melena x3 days with hypotension, presyncope. The patient when he stands up. Hemoglobin did decrease from 9.1 down to 7.7 on Plavix and Xarelto. MCV of 87, platelet count 148. INR of 1.15 and PTT normal at 24.4. We will need to hold aspirin, Plavix and proceed with EGD evaluation. Continue Protonix drip. 2. History of diabetes, atrial fibrillation, chronic kidney disease, prostate cancer, status post radiation therapy. Recommendations: 1. EGD. 2. Serial H and H and transfuse p.r.n. 3. Continue with Protonix IV drip. 4. Hold aspirin. 5. May hold Plavix and Xarelto and 6>. Aagree with Cardiology consultation JANIYA/CORINE Voice ID: [id number] Report ID: [id number] MTDD
[2018-01-29] MEDS: ATORVASTATIN 10 MG TAB PO SCH (20:50)
[2018-01-29] MEDS: TAMSULOSIN 0.4 MG SR CAP PO SCH (20:50)
[2018-01-29 22:09] LABS: Hematocrit 21.9 % (39.6-49.0)
[2018-01-30 01:13] LABS: Hematocrit 22.4 % (39.6-49.0)
[2018-01-30] MEDS: PANTOPRAZOLE INJ 80 MG in NA CHLORIDE 0.9% 250 ML IV SCH ×2 (04:00→06:24)
[2018-01-30 05:20] LABS: Absolute Lymphocytes (CBC) 1.6 K/uL (0.7-4.9); Absolute Monocytes 0.4 K/uL (0.1-1.3); Absolute Neutrophil 3.1 K/uL (1.8-8.0); Basophils % 0.5 % (0-1.3); Eosinophils % 3.9 % (0-4.4); Hematocrit 23.6 % (39.6-49.0); Lymphocytes % 30.5 % (15.3-44.8); MCH 28.4 pg (27.0-35.0); MCV 88.1 fL (80-100); MPV 7.1 fL (7.6-11.3); RBC Red Blood Cell Count 2.68 M/uL (4.33-5.43)
[2018-01-30 05:28] LABS: Potassium 3.6 mEq/L (3.6-5.0)
[2018-01-30] MEDS: D5 0.45 NS 1,000 ML IV SCH (07:00)
[2018-01-30] MEDS: SITAGLIPTIN PHOS 100 MG TAB PO SCH (08:36)
[2018-01-30] MEDS: INSULIN -REGULAR HUMAN 50 UNIT/0.5 ML ML SQ SCH ×4 (08:36→20:40)
[2018-01-30] MEDS: FINASTERIDE 5 MG TAB PO SCH (08:38)
[2018-01-30] MEDS: GABAPENTIN 300 MG CAP PO SCH ×2 (08:38→20:37)
[2018-01-30 09:09] LABS: Hematocrit 23.9 % (39.6-49.0)
[2018-01-30] MEDS: GLIPIZIDE S.A. 5 MG TAB PO SCH (09:19)
[2018-01-30] MEDS ORDERED: GLUCAGON 1 MG/VIAL IM PRN (10:10)
[2018-01-30] MEDS ORDERED: D50W 25 GM/50 ML SYRINGE IV PRN (10:10)
[2018-01-30] MEDS: PANTOPRAZOLE 40MG TABLET PO SCH ×2 (10:31→16:46)
[2018-01-30] MEDS: RIVAROXABAN 20 MG TABLET PO SCH (10:32)
[2018-01-30] MEDS: METOPROLOL XL 25 MG TAB PO SCH (10:32)
[2018-01-30 13:06] LABS: Hematocrit 25.4 % (39.6-49.0)
--- NOTE | 2018-01-30 18:40 | P.PN ---
Subjective Date of Service: 01/30/18 Chief Complaint: GI bleed The patient seen and examined. Chart reviewed and case discussed with RN. Currently patient has no complaints to offer. States that has been feeling much better than before. Tolerating his diet well as well. Review of Systems 10-point ROS is otherwise unremarkable Physical Examination - Vital Signs Temperature: 97.2 F Blood Pressure: 118/56 Pulse: 92 Respirations: 16 Pulse Ox (%): 98 - Physical Exam General: Alert, In no apparent distress HEENT: Atraumatic, PERRLA, EOMI Neck: Supple, JVD not distended Respiratory: Clear to auscultation bilaterally, Normal air movement Cardiovascular: Regular rate/rhythm, Normal S1 S2 Gastrointestinal: Normal bowel sounds, No tenderness Musculoskeletal: No tenderness Integumentary: No rashes Neurological: Normal speech, Normal tone, Normal affect Lymphatics: No axilla or inguinal lymphadenopathy - Studies Medications List Reviewed: Yes Assessment & Plan - Problems (Diagnosis) (1) GI bleed Current Visit: Yes Status: Acute Plan: Acute gastrointestinal bleed with melanotic stools and acute blood loss anemia -GI consulted. Appreciated Reccs -EGD with 4 small Ulcers with Gastritis -Monitor hemoglobin and hematocrit. Improving today We will transfuse if less than 7. -Continue PPI. switched to PO -Transfer to the floor (2) Afib Current Visit: Yes Status: Chronic Plan: Afib currently rate and rhythm controlled. -Restart on Xarelto today -Restart Metoprolol at lower dose due to Hypotension. Qualifiers: Atrial fibrillation type: chronic Qualified Code(s): I48.2 - Chronic atrial fibrillation (3) Diabetes Current Visit: Yes Status: Chronic Qualifiers: Diabetes mellitus type: type 2 Diabetes mellitus mcfp insulin use: without mcfp use Diabetes mellitus complication status: without complication Qualified Code(s): E11.9 - Type 2 diabetes mellitus without complications (4) HTN (hypertension) Current Visit: Yes Status: Chronic Qualifiers: Hypertension type: essential hypertension Qualified Code(s): I10 - Essential (primary) hypertension Discharge Plan: Home Plan to discharge in: 24 Hours - Code Status/Comfort Care Code Status Assessed: Yes
[2018-01-30] MEDS: TAMSULOSIN 0.4 MG SR CAP PO SCH (20:36)
[2018-01-30] MEDS: ATORVASTATIN 10 MG TAB PO SCH (20:37)
[2018-01-31 01:33] VITALS: O2SAT 98
[2018-01-31 04:59] LABS: Absolute Lymphocytes (CBC) 1.9 K/uL (0.7-4.9); Absolute Monocytes 0.5 K/uL (0.1-1.3); Basophils % 0.5 % (0-1.3); Eosinophils % 4.1 % (0-4.4); Hematocrit 22.5 % (39.6-49.0); Lymphocytes % 28.8 % (15.3-44.8); MCH 28.8 pg (27.0-35.0); MCV 87.1 fL (80-100); MPV 7.2 fL (7.6-11.3); RBC Red Blood Cell Count 2.58 M/uL (4.33-5.43)
[2018-01-31 05:14] LABS: Potassium 3.8 mEq/L (3.6-5.0)
[2018-01-31] MEDS: METOPROLOL XL 25 MG TAB PO SCH (05:43)
[2018-01-31] MEDS: INSULIN -REGULAR HUMAN 50 UNIT/0.5 ML ML SQ SCH ×3 (08:25→16:30)
[2018-01-31] MEDS: GABAPENTIN 300 MG CAP PO SCH (08:25)
[2018-01-31] MEDS: FINASTERIDE 5 MG TAB PO SCH (08:26)
[2018-01-31] MEDS: PANTOPRAZOLE 40MG TABLET PO SCH ×2 (08:26→16:56)
[2018-01-31] MEDS ORDERED: CYANOCOBALAMIN 1,000 MCG TAB PO SCH (09:00)
[2018-01-31] MEDS: RIVAROXABAN 20 MG TABLET PO SCH (09:09)
[2018-01-31] MEDS ORDERED: NA CHLORIDE 0.9% 250 ML ONE (10:54)
--- NOTE | 2018-01-31 12:27 | P.PN ---
Subjective Date of Service: 01/31/18 Chief Complaint: GI bleed The patient seen and examined. Chart reviewed and case discussed with RN. Currently patient has no complaints to offer. States that has been feeling much better than before. Tolerating his diet well as well. No c/o fatigue. Review of Systems 10-point ROS is otherwise unremarkable Physical Examination - Vital Signs Temperature: 96.7 F Blood Pressure: 113/65 Pulse: 101 Respirations: 18 Pulse Ox (%): 92 - Physical Exam General: Alert, In no apparent distress, Oriented x3 HEENT: Atraumatic, PERRLA, EOMI Neck: Supple, JVD not distended Respiratory: Clear to auscultation bilaterally, Normal air movement Cardiovascular: Regular rate/rhythm, Normal S1 S2 Gastrointestinal: Normal bowel sounds, No tenderness Musculoskeletal: No tenderness Integumentary: No rashes Neurological: Normal speech, Normal tone, Normal affect Lymphatics: No axilla or inguinal lymphadenopathy - Studies Medications List Reviewed: Yes Assessment & Plan - Problems (Diagnosis) (1) GI bleed Onset Date: 01/31/18 Current Visit: Yes Status: Acute Plan: Acute gastrointestinal bleed with melanotic stools and acute blood loss anemia -GI consulted. Appreciated Reccs -EGD with 4 small Ulcers with Gastritis -Monitor hemoglobin and hematocrit. 7.2 today. Will transfuse 2 units and recheck -Continue PPI PO BID -If H/H not improving will hold xarelto Qualifiers: GI bleed type/associated pathology: gastritis Gastritis type: chronic gastritis Qualified Code(s): K29.51 - Unspecified chronic gastritis with bleeding (2) Afib Onset Date: 01/31/18 Current Visit: Yes Status: Chronic Plan: Afib currently rate and rhythm controlled. -Restarted on Xarelto 01/30/18 -Restarted on Metoprolol at lower dose due to Hypotension. 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
--- NOTE | 2018-01-31 12:59 | P.PN ---
Subjective Date of Service: 01/31/18 Chief Complaint: GI bleed Subjective: Improving (No further GI bleeding / melena. Hgb low at 7.4. On PPI IV bid. Tolerating GI soft diet. Xarelto given times 1 today and then stopped.) Review of Systems 10-point ROS is otherwise unremarkable General: Weakness (improved) Physical Examination - Vital Signs Temperature: 96.7 F Blood Pressure: 113/65 Pulse: 101 Respirations: 18 Pulse Ox (%): 92 - Physical Exam General: Alert, In no apparent distress, Oriented x3, Cooperative HEENT: Atraumatic, Normocephalic, PERRLA, EOMI Neck: Supple Respiratory: Normal air movement Cardiovascular: Normal pulses Gastrointestinal: Soft and benign, No tenderness, No rebound, No guarding Neurological: Normal speech, Normal strength at 5/5 x4 extr - Studies Medications List Reviewed: Yes Assessment And Plan - Current Problems (Diagnosis) (1) Melena Current Visit: Yes Status: Acute (2) Acute blood loss anemia Onset Date: 01/31/18 Current Visit: Yes Status: Acute (3) Antral ulcer Current Visit: Yes Status: Acute (4) Afib Onset Date: 01/31/18 Current Visit: Yes Status: Chronic Qualifiers: Atrial fibrillation type: chronic Qualified Code(s): I48.2 - Chronic atrial fibrillation - Plan REC: 1) continue PPI therapy and discharge on PPI bid 2) agree with holding Plavix / Xarelto 3) ADA/GI soft diet
[2018-01-31 16:45] LABS: Hematocrit 28.1 % (39.6-49.0)
[2018-01-31 16:56] LABS: Potassium 3.8 mEq/L (3.6-5.0)
[2018-01-31 17:01] VITALS: BP 147/73; TEMP 97.7
--- NOTE | 2018-01-31 17:46 | P.DS ---
Admission Date: 01/28/18 Discharge Date: 01/31/18 Disposition: ROUTINE DISCHARGE Discharge Condition: GOOD Reason for Admission: GI bleed Consultations: GI Procedures: overall pt remained stable here in the hospital Pt was admitted to the [facility] for GI bleeding. GI was consulted and pt had EGD done here in the hospital. Pt was found to have 4 small Non-bleeding ulcers and chronic gastritis. GI reccomended DC Anticoagulation and PPI BID. Pt had transfusion as well while here in the hospital. Cardiology was consulted for pt AFib and anticoagulation. Cardiology agreed with holding Anticoagulation for a 1 month and resuming it at followup. While here in the hospital patient also had acute renal failure which he got IV fluids for her. Creatinine improved markedly. Patient had improvement in his symptoms and thus was discharged home under stable condition. Patient was asked to follow up with GI and cardiology in 2 weeks. Patient was given a prescription for Protonix b.i.d.. Patient was sent to his anti coagulation for cold 4 weeks. Which include aspirin Plavix xarelto - Problems (1) GI bleed Onset Date: 01/31/18 Current Visit: Yes Status: Acute Qualifiers: GI bleed type/associated pathology: gastritis Gastritis type: chronic gastritis Qualified Code(s): K29.51 - Unspecified chronic gastritis with bleeding (2) Afib Onset Date: 01/31/18 Current Visit: Yes Status: Chronic Qualifiers: Atrial fibrillation type: chronic Qualified Code(s): I48.2 - Chronic atrial fibrillation (3) Diabetes Onset Date: 01/31/18 Current Visit: Yes Status: Chronic Qualifiers: Diabetes mellitus type: type 2 Diabetes mellitus terminal system operator insulin use: without terminal system operator use Diabetes mellitus complication status: without complication Qualified Code(s): E11.9 - Type 2 diabetes mellitus without complications (4) HTN (hypertension) Current Visit: Yes Status: Chronic Qualifiers: Hypertension type: essential hypertension Qualified Code(s): I10 - Essential (primary) hypertension Vital Signs/Physical Exam: Temp Pulse Resp BP Pulse Ox 97.7 F 93 H 16 147/73 H 100 01/31/18 16:00 01/31/18 16:00 01/31/18 16:00 01/31/18 16:00 01/31/18 16:00 General: Alert, In no apparent distress, Oriented x3 HEENT: Atraumatic, PERRLA, EOMI Neck: Supple, JVD not distended Respiratory: Clear to auscultation bilaterally, Normal air movement Cardiovascular: Regular rate/rhythm, Normal S1 S2 Gastrointestinal: Normal bowel sounds, No tenderness Musculoskeletal: No tenderness Integumentary: No rashes Neurological: Normal speech, Normal tone, Normal affect Lymphatics: No axilla or inguinal lymphadenopathy Laboratory Data at Discharge: WBC 6.7 K/uL (4.3-10.9) D 01/31/18 04:28 Hgb 9.2 g/dL (13.6-17.9) L 01/31/18 15:58 Hct 28.1 % (39.6-49.0) L D 01/31/18 15:58 Plt Count 154 K/uL (152-406) 01/31/18 04:28 PT 13.6 SECONDS (9.5-12.5) H 01/28/18 11:45 INR 1.15 01/28/18 11:45 APTT 24.4 SECONDS (24.3-36.9) 01/28/18 11:45 Sodium 137 mEq/L (135-145) 01/31/18 15:58 Potassium 3.8 mEq/L (3.6-5.0) 01/31/18 15:58 BUN 22 mg/dL (6-20) H 01/31/18 15:58 Creatinine 1.47 mg/dL (0.61-1.24) H 01/31/18 15:58 Glucose 113 mg/dL (65-120) 01/31/18 15:58 Magnesium 1.9 mg/dL (1.8-2.5) 01/28/18 11:45 Total Bilirubin 0.5 mg/dL (0.3-1.2) 01/28/18 11:45 AST 26 IU/L (10-42) 01/28/18 11:45 ALT 19 IU/L (10-60) 01/28/18 11:45 Alkaline Phosphatase 43 IU/L (42-121) 01/28/18 11:45 B-Natriuretic Peptide 98 pg/ml (<=100) 01/28/18 11:45 Lipase 29 U/L (22-51) 01/28/18 11:45 Home Medications: Calcium Carbonate [Calcium] 600 mg PO DAILY 01/28/18 Cyanocobalamin [Vitamin B-12*] 500 mcg PO DAILY 01/28/18 Finasteride [Proscar*] 5 mg PO DAILY 01/28/18 Gabapentin [Gralise] 300 mg PO BID 01/28/18 Glipizide [Glipizide ER] 10 mg PO DAILY 01/28/18 Losartan Potassium 50 mg PO DAILY 01/28/18 Metoprolol Succinate [Toprol Xl*] 40 mg PO DAILY 01/28/18 Pravastatin Sodium 40 mg PO BEDTIME 01/28/18 Sitagliptin Phosphate [Januvia*] 100 mg PO DAILY 01/28/18 Tamsulosin [Flomax*] 0.4 mg PO BEDTIME 01/28/18 Patient Discharge Instructions: Please f/u with GI and Cardiology in 1 to 2 week post discharge. Stop medication listed below for 4 week. ASA. Plavix. Xarelto Diet: Regular Activity: Ad caryn Followup: Jeremy Joe MD [ACTIVE - CAN ADMIT] - 1-2 Weeks Fazal Manzanares MD [ASSOCIATE-ACTIVE - CAN ADMIT] - 1-2 Weeks
--- NOTE | 2018-02-01 02:48 | PN ---
Date of Progress Note: 01/31/2018 Mr. Richards is a patient of mine, I have known for many years. He has coronary artery disease, recent o nset atrial fibrillation, on Xarelto. He was also taking Plavix for history of coronary artery disea se. Came in with GI bleed. Endoscopy yesterday showed 4 small peptic ulcers as well as some gastrit is. Hemoglobin remains low. He is getting transfusion today. I will continue to hold the Xarelto f or now. When he goes home, I would prefer that he is off Xarelto, off aspirin, off Plavix. I will s ee him in the office in the next 2 weeks. If his hemoglobin remains stable without any further bleed ing, we will resume his Xarelto and maybe a baby aspirin for CAD. His Xarelto dose was 15 mg. I carmen l discuss the case further with Dr. Hart. He is certainly able to go home whenever it is okay with her. CRESCENCIO/CORINE Voice ID: [id number] Report ID: [id number]
== END 2018-01-31 18:30 | disposition home or self-care (01) | DRG 378 ==
LOC: ER 10:45 → ERHOLD 14:38 → 3RD-ICU 15:38 → 2ND 01-30 11:38
PROVIDERS: ADMIT Family Medicine; ATTEND Family Medicine
PROC: 0DB68ZX Excision of Stomach, Via Natural or Artificial Opening Endoscopic, Diagnostic (ICD-10-PCS; principal; 2018-01-29 09:45)
DX: K29.51 Unspecified chronic gastritis with bleeding (principal); D62 Acute posthemorrhagic anemia; N17.9 Acute kidney failure, unspecified; I48.91 Unspecified atrial fibrillation; E83.52 Hypercalcemia; E11.65 Type 2 diabetes mellitus with hyperglycemia; K44.9 Diaphragmatic hernia without obstruction or gangrene; K25.9 Gastric ulcer, unspecified as acute or chronic, without hemorrhage or perforation; I48.2 Chronic atrial fibrillation; I25.10 Atherosclerotic heart disease of native coronary artery without angina pectoris; Z85.46 Personal history of malignant neoplasm of prostate
CPT/HCPCS: 36415; 70450; 71045; 74176; 80048; 80076; 81001; 81003; 81015; 82550; 82553; 82962; 83690; 83735; 83880; 84484; 85014; 85018; 85025; 85049; 85610; 85730; 86850; 86900; 86901; 88305; 88312; 88313; 93005; 96365; 96366; 97163; 99285; C9113; J7030; P9016; P9035

== ENCOUNTER 2018-03-09 07:19 | Day surgery (SDC) | payer OTHER, MEDICARE ==
[2018-03-06 10:13] LABS: Absolute Lymphocytes (CBC) 1.9 K/uL (0.7-4.9); Absolute Monocytes 0.6 K/uL (0.1-1.3); Absolute Neutrophil 6.8 K/uL (1.8-8.0); Basophils % 0.3 % (0-1.3); Eosinophils % 1.7 % (0-4.4); Hematocrit 30.5 % (39.6-49.0); Lymphocytes % 19.8 % (15.3-44.8); MCH 25.1 pg (27.0-35.0); MCV 80.2 fL (80-100); Monocytes % 6.8 % (3.3-12.3)
[2018-03-06 10:18] LABS: Protime INR 1.94
[2018-03-06 11:34] LABS: Potassium 4.6 mEq/L (3.6-5.0)
[2018-03-09] MEDS ORDERED: NA CHLORIDE 0.9% 500 ML ONE (07:50)
[2018-03-09] MEDS ORDERED: LIDOCAINE 1% 20 ML MDV ONE (08:45)
[2018-03-09] MEDS ORDERED: MIDAZOLAM HCL 2 MG/2 ML INJ ONE (09:00)
[2018-03-09] MEDS ORDERED: FENTANYL CITR 100 MCG/2 ML ONE (09:00)
[2018-03-09 11:25] VITALS: BP 128/69; TEMP 98.2; O2SAT 98
--- NOTE | 2018-03-10 11:10 | OP ---
Date of Procedure: 03/09/2018 Surgeon: Jeremy Joe MD Shipyard Supervisor: Sylvie Koehler. Procedures: Left heart catheterization, selective coronary arteriogram. History Of Present Illness: Mr. Richards is an 83-year-old white male with history of coronary artery di sease status post stent of the circumflex in the past with unstable angina symptoms, admitted as an o utpatient for a heart catheterization. He was given 2 mg of Versed for IV sedation. He was prepped and draped in the routine sterile fashion. A 6-Nigerien sheath was introduced in the right common femo ral artery. [employer] was used to close the case. A 6-Nigerien left Jenae catheter and 6-Nigerien rig ht Jenae catheter was used to perform the arteriogram. He had a completely occluded right coronary artery. His circumflex stent was open and he had a distal circumflex stenosis about 80%. He had a distal left main ostial LAD 70% stenosis with diffuse plaquing in the LAD distally. There were no co mplications. Estimated Blood Loss: 5 cc. Total Conscious Sedation: Was 30 minutes. Final Diagnosis: Severe coronary artery disease. Impression And Plan: The plan is for a surgical consultation. I will have Dr. Beau Perez to review t his film and decide if he is a candidate for surgery. The patient will see me in the office next kyle ma and discuss if he wants surgery done considering his age. He does not have good target vessel in t he RCA or the LAD. The plan for otherwise now he will go home in 2 hours after bedrest. No changes in his medical therapy. CRESCENCIO/CORINE Voice ID: [id number] Report ID: [id number]
== END 2018-03-09 11:24 | disposition home or self-care (01) ==
LOC: CCL 07:19
DX: I25.110 Atherosclerotic heart disease of native coronary artery with unstable angina pectoris (principal); I25.82 Chronic total occlusion of coronary artery; I48.91 Unspecified atrial fibrillation; I10 Essential (primary) hypertension; I65.8 Occlusion and stenosis of other precerebral arteries; E78.5 Hyperlipidemia, unspecified; E78.6 Lipoprotein deficiency; E11.9 Type 2 diabetes mellitus without complications; Z95.5 Presence of coronary angioplasty implant and graft; Z87.891 Personal history of nicotine dependence; Z88.0 Allergy status to penicillin; Z88.8 Allergy status to other drugs, medicaments and biological substances
CPT/HCPCS: 36415; 80048; 82962; 85025; 85610; 85730; 93454; C1893; J2250; J3010

== ENCOUNTER 2018-07-31 13:33 | Emergency (ER) | payer OTHER, MEDICARE ==
[2018-07-31 14:21] LABS: Absolute Lymphocytes (CBC) 1.8 K/uL (0.7-4.9); Absolute Monocytes 0.8 K/uL (0.1-1.3); Absolute Neutrophil 6.6 K/uL (1.8-8.0); Basophils % 0.5 % (0-1.3); Eosinophils % 3.3 % (0-4.4); Hematocrit 41.1 % (39.6-49.0); Lymphocytes % 18.8 % (15.3-44.8); MCV 84.5 fL (80-100); MPV 6.7 fL (7.6-11.3); Monocytes % 8.1 % (3.3-12.3); RBC Red Blood Cell Count 4.86 M/uL (4.33-5.43)
[2018-07-31 14:30] LABS: Protime INR 1.59
[2018-07-31 14:47] LABS: ALT/SGPT 17 U/L (12-78); AST/SGOT 18 U/L (15-37); Albumin 3.4 g/dL (3.4-5.0); Alkaline Phosphatase 145 U/L (45-117); BUN Blood Urea Nitrogen 34 mg/dL (7-18); Bicarbonate 27 mmol/L (21-32); Bilirubin Direct 0.2 mg/dL (0-0.2); Bilirubin Total 0.4 mg/dL (0.2-1.0); Glucose Level 161 mg/dL (74-106); Lipase 183 U/L (73-393); Magnesium 2.3 mg/dL (1.8-2.4); NT PRO-BNP 684 pg/mL (<450); Potassium 4.5 mmol/L (3.5-5.1); Protein, Total 7.7 g/dL (6.4-8.2); Sodium Level 143 mmol/L (136-145); Troponin (Emerg Dept Use Only) < 0.02 ng/mL (0.0-0.045)
[2018-07-31] MEDS ORDERED: NA CHLORIDE 0.9% 500 ML ONE (14:52)
--- NOTE | 2018-07-31 15:11 | RAD REPORT ---
EXAM DESCRIPTION: RAD - Chest Single View - 07/31/2018 3:04 pm CLINICAL HISTORY: Cough COMPARISON: January 28, 2018 TECHNIQUE: AP portable chest image was obtained 1419 hours . FINDINGS: Lungs are clear. Lung markings are similar to comparison. Heart and vasculature are normal . No measurable pleural effusion and no pneumothorax. No acute bony abnormality seen. No acute aortic findings suspected. IMPRESSION: No acute cardiopulmonary process. No significant change from the comparison study.
--- NOTE | 2018-07-31 15:12 | RAD REPORT ---
EXAM DESCRIPTION: RAD - Hip Left 2 View - 07/31/2018 3:04 pm CLINICAL HISTORY: Fall, hip pain COMPARISON: None. FINDINGS: AP and frogleg views of the left hip were obtained. There is no fracture or dislocation. F emoral head maintains smooth rounded contour. Degenerative change along the superior aspect acetabulu m is minimal. No AVN or focal femoral head abnormality suspected. There is benign sclerotic focus in the left femoral neck. No periarticular abnormality seen. IMPRESSION: Minimal hip joint degenerative change with no acute finding.
--- NOTE | 2018-07-31 15:13 | RAD REPORT ---
EXAM DESCRIPTION: RAD - Hip Right 2 View - 07/31/2018 3:04 pm CLINICAL HISTORY: Fall, hip pain COMPARISON: None. FINDINGS: AP and frog-leg views of the right hip were obtained. There is no fracture or dislocation . Mild degenerative change along the superior acetabular rim. No AVN or focal femoral head abnormali ty. No periarticular mass or hematoma. IMPRESSION: Negative right hip examination for acute findings.
--- NOTE | 2018-07-31 15:34 | RAD REPORT ---
EXAM DESCRIPTION: CT - Head C Spine Cap Wo Con - 07/31/2018 3:12 pm CLINICAL HISTORY: Fall, head, neck, chest and abdomen pain, history of prostate cancer COMPARISON: CT imaging abdomen and pelvis January 2018, CT head January 2018 TECHNIQUE: Axial [address] head images were obtained. Axial [address] cervical spine images were obtain ed with sagittal and coronal reconstruction images reviewed. Axial 5 mm images of the chest, abdomen and pelvis were obtained. All CT scans are performed using dose optimization technique as appropriate and may include automated exposure control or mA/KV adjustment according to patient size. FINDINGS: No intracranial hemorrhage, mass or edema. No midline shift or abnormal fluid collection. Mastoid air cells and paranasal sinuses are clear. The patient has advanced atrophy and chronic ische j carlos change matching the January study. Ventricular size is in proportion to the volume loss. Arterial a nd physiologic calcifications are present. No fracture or acute bone process. Cervical bodies are normal in height and alignment. No fracture or acute bone finding.Minimal disc sp mika narrowing C4-5. No facet alignment abnormality. Facet degenerative changes are present.No prevert ebral soft tissue thickening or paraspinal mass.Central canal detail is inherently limited on CT imag ing. CT chest shows no pneumothorax, pulmonary contusion or pleural fluid collection. A small 5 mm pulmona ry nodule is present right midlung field. No mediastinal hematoma and the aorta and pulmonary arterie s are unremarkable. No chest will mass or abnormal axillary finding. No displaced rib fracture or oth er significant bony finding. CT abdomen and pelvis show no injury to solid abdominal viscera. Gallbladder and biliary tree are unr emarkable. No bowel injury or significant finding. No free air, free fluid or abnormal stranding. No mass or bulky lymphadenopathy. Bilateral fat filled inguinal hernias are present. No urinary bladder abnormality. No significant bony finding. IMPRESSION: No hemorrhage or acute intracranial finding. Advanced atrophy and chronic ischemic nava e match January 2018 imaging. Cervical spine degenerative changes are present mild for age. No acute finding. No acute or significant CT chest finding. A 5 mm pulmonary nodule is present on the right. No follow- up is needed for a low risk patient. High risk patient follow-up recommendation is optional CT chest in [address] Abdomen and Pelvis finding.
--- NOTE | 2018-07-31 16:55 | EDPHYS ---
Physician Documentation [facility] Name: Bryn Richards Age: 83 yrs Sex: Male : 1935 Arrival Date: 07/31/2018 Time: 13:36 Bed 13 Private MD: Fazal Lentz E ED Physician Harvey Cruz HPI: 07/31 16:50 This 83 yrs old Male presents to ER via Ambulatory with complaints of Fall adriana Injury, Hip Pain. 16:50 This 83 yrs old Male presents to ER via Ambulatory with complaints of Fall adriana Injury, Hip Pain. 16:50 Details of fall: The patient fell from an upright position, while walking. Onset: The adriana symptoms/episode began/occurred 6 day(s) ago. Associated injuries: The patient sustained injury to the low back. Severity of symptoms: At their worst the symptoms were mild, in the emergency department the symptoms are unchanged. The patient has not experienced similar symptoms in the past. Historical: - Allergies: 13:44 Amiodarone; aa5 13:44 Multaq; aa5 13:44 PENICILLINS; aa5 13:44 Prednisone; aa5 - Home Meds: 13:58 Calcium Carbonate Oral [Active]; clopidogrel 75 mg Oral tab 1 tab once daily [Active]; tw2 finasteride 5 mg Oral tab 1 tab once daily [Active]; gabapentin 300 mg Oral cap 1 cap 3 times per day [Active]; glipizide 5 mg Oral tab 1 tab 2 times per day [Active]; Januvia 100 mg Oral tab 1 tab once daily [Active]; losartan 50 mg oral tab [Active]; Metoprolol Tartrate Oral [Active]; Pravachol 40 mg Oral tab 1 tab once daily [Active]; tamsulosin 0.4 mg Oral cp24 1 cap once daily [Active]; vitamin Y34-ddczs acid 500-400 mcg Oral tab [Active]; Xarelto 15 mg Oral tab [Active]; - PMHx: 13:44 Atrial Fib; Diabetes - NIDDM; Hypertension; Hyperlipidemia; aa5 13:46 "internal bleeding"; aa5 - PSHx: 13:44 Heart stents; back; Left elbow; Prostate CA; aa5 - Immunization history:: Adult Immunizations up to date. - Social history:: Smoking status: Patient/guardian denies using tobacco. - Immunization history: Last tetanus immunization: unknown. - Ebola Screening: : No symptoms or risks identified at this time. - Family history:: not pertinent. ROS: 16:50 Constitutional: Negative for fever, chills, and weight loss, Eyes: Negative for injury, adriana pain, redness, and discharge, ENT: Negative for injury, pain, and discharge, Neck: Negative for injury, pain, and swelling, Cardiovascular: Negative for chest pain, palpitations, and edema, Respiratory: Negative for shortness of breath, cough, wheezing, and pleuritic chest pain, Abdomen/GI: Negative for abdominal pain, nausea, vomiting, diarrhea, and constipation, : Negative for injury, bleeding, discharge, and swelling, MS/Extremity: Negative for injury and deformity, Skin: Negative for injury, rash, and discoloration, Psych: Negative for depression, anxiety, suicide ideation, homicidal ideation, and hallucinations, Allergy/Immunology: Negative for hives, rash, and allergies, Endocrine: Negative for neck swelling, polydipsia, polyuria, polyphagia, and marked weight changes, Hematologic/Lymphatic: Negative for swollen nodes, abnormal bleeding, and unusual bruising. 16:50 Back: Positive for pain at rest, pain with movement. 16:50 Neuro: Positive for weakness. Exam: 16:50 Constitutional: This is a well developed, well nourished patient who is awake, alert, adriana and in no acute distress. Head/Face: Normocephalic, atraumatic. Eyes: Pupils equal round and reactive to light, extra-ocular motions intact. Lids and lashes normal. Conjunctiva and sclera are non-icteric and not injected. Cornea within normal limits. Periorbital areas with no swelling, redness, or edema. ENT: Nares patent. No nasal discharge, no septal abnormalities noted. Tympanic membranes are normal and external auditory canals are clear. Oropharynx with no redness, swelling, or masses, exudates, or evidence of obstruction, uvula midline. Mucous membranes moist. Neck: Trachea midline, no thyromegaly or masses palpated, and no cervical lymphadenopathy. Supple, full range of motion without nuchal rigidity, or vertebral point tenderness. No Meningismus. Chest/axilla: Normal chest wall appearance and motion. Nontender with no deformity. No lesions are appreciated. Cardiovascular: Regular rate and rhythm with a normal S1 and S2. No gallops, murmurs, or rubs. Normal PMI, no JVD. No pulse deficits. Respiratory: Lungs have equal breath sounds bilaterally, clear to auscultation and percussion. No rales, rhonchi or wheezes noted. No increased work of breathing, no retractions or nasal flaring. Back: No spinal tenderness. No costovertebral tenderness. Full range of motion. Male : Normal genitalia with no discharge or lesions. Skin: Warm, dry with normal turgor. Normal color with no rashes, no lesions, and no evidence of cellulitis. 16:50 Abdomen/GI: Inspection: abdomen appears normal, Bowel sounds: normal, Palpation: abdomen is soft and non-tender, Liver: no appreciated palpable abnormalities, Hernia: not appreciated. Vital Signs: 13:44 BP 124 / 84; Pulse 82; Resp 16 S; Temp 97.8(TE); Pulse Ox 97% on R/A; Weight 92.53 kg aa5 (R); Height 5 ft. 9 in. (175.26 cm) (R); Pain 3/10; 14:52 BP 144 / 84; Pulse 84; Resp 22; Pulse Ox 95% on R/A; tw2 15:45 BP 141 / 86; Pulse 105; Resp 22; Pulse Ox 95% on R/A; tw2 16:49 BP 142 / 86; Pulse 94; Resp 22; Pulse Ox 96% on R/A; tw2 17:06 BP 144 / 94; Pulse 104; Resp 22; Pulse Ox 95% on R/A; tw2 13:44 Body Mass Index 30.13 (92.53 kg, 175.26 cm) aa5 Jones Coma Score: 13:55 Eye Response: spontaneous(4). Verbal Response: oriented(5). Motor Response: obeys tw2 commands(6). Total: 15. Trauma Score (Adult): 13:55 Eye Response: spontaneous(1); Verbal Response: oriented(1); Motor Response: obeys tw2 commands(2); Systolic BP: > 89 mm Hg(4); Respiratory Rate: 10 to 29 per min(4); Jones Score: 15; Trauma Score: 12 MDM: 14:01 Patient medically screened. [facility] 16:53 Data reviewed: vital signs, nurses notes, lab test result(s), EKG, radiologic studies, [facility] CT scan, plain films. 07/31 14:04 Order name: Basic Metabolic Panel [facility] 07/31 14:04 Order name: CBC with Diff [facility] 07/31 14:04 Order name: LFT's; Complete Time: 16:49 [facility] 07/31 14:04 Order name: Magnesium; Complete Time: 16:49 [facility] 07/31 14:04 Order name: NT PRO-BNP; Complete Time: 16:49 [facility] 07/31 14:04 Order name: PT-INR; Complete Time: 16:49 [facility] 07/31 14:04 Order name: Troponin (emerg Dept Use Only); Complete Time: 16:49 [facility] 07/31 14:04 Order name: XRAY Chest (1 view); Complete Time: 16:49 [facility] 07/31 14:04 Order name: Hip Left 2 View XRAY; Complete Time: 16:49 [facility] 07/31 14:04 Order name: Lipase; Complete Time: 16:49 [facility] 07/31 14:04 Order name: Urine Culture [facility] 07/31 14:04 Order name: Basic Metabolic Panel; Complete Time: 16:49 EDMS 07/31 14:04 Order name: CBC with Automated Diff; Complete Time: 16:49 EDMS 07/31 16:51 Order name: Urine Dipstick--Ancillary (enter results) 07/31 14:04 Order name: EKG; Complete Time: 14:04 [facility] 07/31 14:04 Order name: Cardiac monitoring; Complete Time: 14:05 [facility] 07/31 14:04 Order name: EKG - Nurse/Tech; Complete Time: 14:15 [facility] 07/31 14:04 Order name: IV Saline Lock; Complete Time: 14:15 [facility] 07/31 14:04 Order name: Labs collected and sent; Complete Time: 14:15 [facility] 07/31 14:04 Order name: O2 Per Protocol; Complete Time: 14:05 [facility] 07/31 14:04 Order name: O2 Sat Monitoring; Complete Time: 14:05 [facility] 07/31 14:04 Order name: Hip Right 2 View XRAY; Complete Time: 16:49 [facility] 07/31 14:04 Order name: Urine Dipstick-Ancillary (obtain specimen); Complete Time: 16:47 [facility] 07/31 14:51 Order name: Head C Spine Cap Wo Con; Complete Time: 16:49 EDMS Administered Medications: 14:51 Drug: NS 0.9% 1000 ml Route: IV; Rate: 125 ml/hr; Site: right antecubital; tw2 15:05 Follow up: Response: No adverse reaction; IV Status: Order to discontinue infusion tw2 Disposition: 07/31/18 16:55 Discharged to Home. Impression: Weakness, Fall due to bumping against object, Unspecified kidney failure - chronic, Low back pain. - Condition is Stable. - Discharge Instructions: Back Pain, Adult, Fall Prevention in the Home, Musculoskeletal Pain, Weakness, Back Injury Prevention, [id number], Back Pain, Adult, [id number], Weakness, [id number]. - Prescriptions for Tylenol- Codeine #3 300-30 mg Oral Tablet - take 1 tablet by ORAL route every 6 hours As needed; 24 tablet. - Medication Reconciliation Form, Thank You Letter, Antibiotic Education, Prescription Opioid Use form. - Follow up: Fazal Lentz MD; When: 2 - 3 days; Reason: Recheck today's complaints, Continuance of care, Re-evaluation by your physician. - Problem is new. - Symptoms have improved. Signatures: Dispatcher [employer] [facility] Harvey Cruz MD MD cha Calderon, Audri, RN RN aa5 Debby Rodriguez, RN RN tw2 Corrections: (The following items were deleted from the chart) 14:51 14:04 Head C Spine CAP W [id number].[id number] ordered. [facility] 17:11 16:55 07/31/2018 16:55 Discharged to Home. Impression: Weakness; Fall due to bumping tw2 against object; Unspecified kidney failure - chronic; Low back pain. Condition is Stable. Forms are Medication Reconciliation Form, Thank You Letter, Antibiotic Education, Prescription Opioid Use. Follow up: Fazal Lentz; When: 2 - 3 days; Reason: Recheck today's complaints, Continuance of care, Re-evaluation by your physician. Problem is new. Symptoms have improved. adriana
--- NOTE | 2018-07-31 16:55 | ER ---
Nurse's Notes [facility] Name: Bryn Richards Age: 83 yrs Sex: Male : 1935 Arrival Date: 07/31/2018 Time: 13:36 Bed 13 Private MD: Fazal Lentz E Diagnosis: Weakness;Fall due to bumping against object;Unspecified kidney failure-chronic;Low back pain Presentation: 07/31 13:41 Presenting complaint: Patient states: "I fell on Tuesday, I was backing up with my aa5 walker and fell backwards". Pt reports hitting head on carpet, denies LOC, denies head pain. C/O pain to bekah hips. Pt reports he takes Xarelto. Care prior to arrival: None. Mechanism of Injury: Fall from standing position. Trauma event details: Injury occurred in the [facility], Injury occurred: at home. 13:41 Method Of Arrival: Ambulatory aa5 13:41 Acuity: CORBY 3 aa5 13:46 Transition of care: patient was not received from another setting of care. Onset of aa5 symptoms was July 25, 2018. Risk Assessment: Do you want to hurt yourself or someone else? Patient reports no desire to harm self or others. Initial Sepsis Screen: Does the patient meet any 2 criteria? No. Patient's initial sepsis screen is negative. Does the patient have a suspected source of infection? No. Patient's initial sepsis screen is negative. Trauma Activation: Not Applicable Physician: ED Physician; Name: ; Notified At: ; Arrived At: Physician: General Surgeon; Name: ; Notified At: ; Arrived At: Physician: Radiology; Name: ; Notified At: ; Arrived At: Physician: Respiratory; Name: ; Notified At: ; Arrived At: Physician: Lab; Name: ; Notified At: ; Arrived At: Historical: - Allergies: 13:44 Amiodarone; aa5 13:44 Multaq; aa5 13:44 PENICILLINS; aa5 13:44 Prednisone; aa5 - Home Meds: 13:58 Calcium Carbonate Oral [Active]; clopidogrel 75 mg Oral tab 1 tab once daily [Active]; tw2 finasteride 5 mg Oral tab 1 tab once daily [Active]; gabapentin 300 mg Oral cap 1 cap 3 times per day [Active]; glipizide 5 mg Oral tab 1 tab 2 times per day [Active]; Januvia 100 mg Oral tab 1 tab once daily [Active]; losartan 50 mg oral tab [Active]; Metoprolol Tartrate Oral [Active]; Pravachol 40 mg Oral tab 1 tab once daily [Active]; tamsulosin 0.4 mg Oral cp24 1 cap once daily [Active]; vitamin W04-arfqn acid 500-400 mcg Oral tab [Active]; Xarelto 15 mg Oral tab [Active]; - PMHx: 13:44 Atrial Fib; Diabetes - NIDDM; Hypertension; Hyperlipidemia; aa5 13:46 "internal bleeding"; aa5 - PSHx: 13:44 Heart stents; back; Left elbow; Prostate CA; aa5 - Immunization history:: Adult Immunizations up to date. - Social history:: Smoking status: Patient/guardian denies using tobacco. - Immunization history: Last tetanus immunization: unknown. - Ebola Screening: : No symptoms or risks identified at this time. - Family history:: not pertinent. Screenin:50 Abuse screen: Denies threats or abuse. Nutritional screening: No deficits noted. tw2 Tuberculosis screening: No symptoms or risk factors identified. Fall Risk Secondary diagnosis (15 points) impaired mobility. Primary Survey: 13:55 A: Airway: patent. Breathing/Chest: Respiratory pattern: regular, Respiratory effort: tw2 spontaneous, unlabored, Breath sounds: clear, bilaterally. Chest inspection: symmetrical rise and fall of the chest. Circulation: Heart tones present. Skin temperature: warm, dry. Disability Alert. 13:58 Reassessment Breathing/Chest. tw2 Secondary Survey: 14:53 HEENT: Eyes: Other wearing glasses at this time. Gastrointestinal: Abdomen is soft. : tw2 No signs and/or symptoms were reported regarding the genitourinary system. Musculoskeletal: Circulation, motion, and sensation intact. Range of motion: intact in all extremities, Reports b/l hip pain. Assessment: 13:54 General: Appears in no apparent distress. Behavior is calm, cooperative, appropriate tw2 for age. Pain: Complains of pain in Left and Right hip area. Neuro: Level of Consciousness is awake, alert, obeys commands, Oriented to person, place, time, situation. Cardiovascular: Denies chest pain, shortness of breath, Heart tones S1 S2 Patient's skin is warm and dry. Respiratory: Airway is patent Respiratory effort is even, unlabored, Respiratory pattern is regular, symmetrical, Breath sounds are clear bilaterally. GI: No signs and/or symptoms were reported involving the gastrointestinal system. Abdomen is round non-distended, obese, Bowel sounds present X 4 quads. : No signs and/or symptoms were reported regarding the genitourinary system. EENT: No signs and/or symptoms were reported regarding the EENT system. Derm: Skin is intact, Skin is dry. Musculoskeletal: Circulation, motion, and sensation intact. Range of motion: intact in all extremities, Reports pain in left and right hip. 14:52 Reassessment: Patient appears in no apparent distress at this time. No changes from tw2 previously documented assessment. Patient and/or family updated on plan of care and expected duration. Pain level reassessed. Patient is alert, oriented x 3, equal unlabored respirations, skin warm/dry/pink. 15:45 Reassessment: Patient appears in no apparent distress at this time. No changes from tw2 previously documented assessment. Patient and/or family updated on plan of care and expected duration. Pain level reassessed. Patient is alert, oriented x 3, equal unlabored respirations, skin warm/dry/pink. 16:49 Reassessment: Patient appears in no apparent distress at this time. No changes from tw2 previously documented assessment. Patient and/or family updated on plan of care and expected duration. Pain level reassessed. Patient is alert, oriented x 3, equal unlabored respirations, skin warm/dry/pink. Vital Signs: 13:44 BP 124 / 84; Pulse 82; Resp 16 S; Temp 97.8(TE); Pulse Ox 97% on R/A; Weight 92.53 kg aa5 (R); Height 5 ft. 9 in. (175.26 cm) (R); Pain 3/10; 14:52 BP 144 / 84; Pulse 84; Resp 22; Pulse Ox 95% on R/A; tw2 15:45 BP 141 / 86; Pulse 105; Resp 22; Pulse Ox 95% on R/A; tw2 16:49 BP 142 / 86; Pulse 94; Resp 22; Pulse Ox 96% on R/A; tw2 17:06 BP 144 / 94; Pulse 104; Resp 22; Pulse Ox 95% on R/A; tw2 13:44 Body Mass Index 30.13 (92.53 kg, 175.26 cm) aa5 [place] Coma Score: 13:55 Eye Response: spontaneous(4). Verbal Response: oriented(5). Motor Response: obeys tw2 commands(6). Total: 15. Trauma Score (Adult): 13:55 Eye Response: spontaneous(1); Verbal Response: oriented(1); Motor Response: obeys tw2 commands(2); Systolic BP: > 89 mm Hg(4); Respiratory Rate: 10 to 29 per min(4); [place] Score: 15; Trauma Score: 12 ED Course: 13:36 Patient arrived in ED. mr 13:37 Fazal Lentz MD is Private Physician. mr 13:42 Arm band placed on. aa5 13:47 Triage completed. aa5 13:49 Debby Rodriguez, PEGGY is Primary Nurse. tw2 13:50 Call light in reach. Side rails up X2. compliance monitor on. Pulse ox on. NIBP on. Warm tw2 blanket given. 13:50 Patient maintains SpO2 saturation greater than 95% on room air. Thermoregulation: warm tw2 blanket given to patient. 14:01 Harvey Cruz MD is Attending Physician. adriana 14:18 Inserted saline lock: 22 gauge in right antecubital area, using aseptic technique. tw2 Blood collected. 14:22 EKG done, by development technologist. reviewed by Harvey Cruz MD. 3 14:59 X-ray completed. Portable x-ray completed in exam room. Patient tolerated procedure sw well. Patient moved back from radiology. 15:05 XRAY Chest (1 view) In Process Unspecified. EDMS 15:05 Hip Left 2 View XRAY In Process Unspecified. EDMS 15:05 Hip Right 2 View XRAY In Process Unspecified. EDMS 15:12 Head C Spine Cap Wo Con In Process Unspecified. EDMS 16:46 Urine collected: clean catch specimen, clear. 5 16:47 Urine Culture Sent. [facility] 16:53 Fazal Lentz MD is Referral Physician. [facility] 17:10 No provider procedures requiring assistance completed. IV discontinued, intact, tw2 bleeding controlled, No redness/swelling at site. Pressure dressing applied. Administered Medications: 14:51 Drug: NS 0.9% 1000 ml Route: IV; Rate: 125 ml/hr; Site: right antecubital; tw2 15:05 Follow up: Response: No adverse reaction; IV Status: Order to discontinue infusion tw2 Intake: 13:55 PO: 0ml; Total: 0ml. tw2 Outcome: 15:46 Patient's length of stay in the Emergency Department was greater than 2 hours. decision tw2 from providerPatient's length of stay extended due to 16:55 Discharge ordered by . adriana 17:11 Discharged to home via wheelchair, with family. tw2 17:11 Condition: stable 17:11 Discharge instructions given to patient, Instructed on discharge instructions, follow up and referral plans. no drinking with medication, no driving heavy equipment, medication usage, Demonstrated understanding of instructions, follow-up care, medications, Prescriptions given X 1. 17:11 Patient left the ED. tw2 Signatures: Dispatcher [employer] EDMS Harvey Cruz MD MD cha Rivera, Mary mr Grubbs, Kim, RN RN aa5 Jennifer Valderrama Tara, RN RN tw2 Yola Lyle 5 Katlyn Sharp 3 Corrections: (The following items were deleted from the chart) 13:47 13:41 Presenting complaint: Patient states: "I fell on Tuesday, I was backing up with aa5 my walker and fell backwards". Pt reports hitting head on carpet, denies LOC, denies head pain. C/O pain to bekah hips aa5
[2018-07-31 17:17] VITALS: TEMP 97.8
[2018-07-31 17:22] VITALS: BP 144/94; O2SAT 95
--- NOTE | 2018-07-31 17:42 | EKG ---
Test Date: 2018-07-31 Test Time: 14:11:43 Music Library Assistant: SHERI MEASUREMENT RESULTS: Intervals: Rate: 92 TX: QRSD: 96 QT: 330 QTc: 408 [place]: P: TX: QRS: 31 T: 68 INTERPRETIVE STATEMENTS: Atrial fibrillation with premature ventricular or aberrantly conducted complexes Abnormal ECG Compared to ECG 01/28/2018 11:28:43 Ventricular premature complex(es) now present ST (T wave) deviation no longer present Possible ischemia no longer present Electronically Signed On 07-31-18 17:41:25 CDT by Wilber Awan
[2018-07-31 18:04] LABS: Urine Blood NEGATIVE (NEG); Urine Glucose TRACE (NEG); Urine Protein TRACE (NEG); Urine Specific Gravity 1.025 (1.005-1.030); Urine pH 5.5 (5.0-7.0)
== END 2018-07-31 17:11 | disposition home or self-care (01) ==
LOC: ER 13:33
DX: R53.1 Weakness (principal); W19.XXXA Unspecified fall, initial encounter; Y93.01 Activity, walking, marching and hiking; Y92.9 Unspecified place or not applicable; Z79.01 Long term (current) use of anticoagulants; Z85.46 Personal history of malignant neoplasm of prostate; Z95.818 Presence of other cardiac implants and grafts; I12.9 Hypertensive chronic kidney disease with stage 1 through stage 4 chronic kidney disease, or unspecified chronic kidney disease; E11.22 Type 2 diabetes mellitus with diabetic chronic kidney disease; N18.9 Chronic kidney disease, unspecified; I48.91 Unspecified atrial fibrillation; E78.5 Hyperlipidemia, unspecified
CPT/HCPCS: 36415; 70450; 71045; 71250; 72125; 80048; 80076; 81003; 83690; 83735; 83880; 84484; 85025; 85610; 87086; 87088; 93005; 99285

== ENCOUNTER 2018-09-13 14:20 | Emergency (ER) | payer OTHER, MEDICARE ==
[2018-09-13 14:55] LABS: Hematocrit 38.8 % (39.6-49.0); MCH 28.4 pg (27.0-35.0); MCV 86.2 fL (80-100)
[2018-09-13 14:56] LABS: Absolute Lymphocytes (CBC) 1.8 K/uL (0.7-4.9); Absolute Monocytes 0.5 K/uL (0.1-1.3); Basophils % 0.6 % (0-1.3); Lymphocytes % 23.8 % (15.3-44.8); MPV 6.8 fL (7.6-11.3); Monocytes % 6.2 % (3.3-12.3)
[2018-09-13 14:59] LABS: Protime INR 1.44
--- NOTE | 2018-09-13 15:01 | RAD REPORT ---
EXAM DESCRIPTION: CT - [id number] - 09/13/2018 2:47 pm CLINICAL HISTORY: Trauma, head and neck injury. fall COMPARISON: No comparisons TECHNIQUE: Axial 5 mm thick images of the head were obtained. Axial 2 mm thick images of the cervical spine were obtained with sagittal and coronal reconstruction images generated and reviewed. All CT scans are performed using dose optimization technique as appropriate and may include automated exposure control or mA/KV adjustment according to patient size. FINDINGS: CT HEAD WITHOUT CONTRAST: No acute hemorrhage, hydrocephalus or extra-axial collection is identified.Mild generalized brain atr ophy is present with mild periventricular and deep white matter chronic microvascular ischemic change s.No areas of brain edema or midline shift. The paranasal sinuses and mastoids demonstrate mild mucoperiosteal thickening. Mild lower cervical de generative changes.The calvarium is intact. Left posterior scalp hematoma. CT CERVICAL SPINE WITHOUT CONTRAST: No fracture or subluxation.No prevertebral soft tissues swelling is identified. IMPRESSION: No acute intracranial or cervical spine findings.
--- NOTE | 2018-09-13 15:05 | RAD REPORT ---
EXAM DESCRIPTION: RAD - Chest Single View - 09/13/2018 3:00 pm CLINICAL HISTORY: fall Chest pain. COMPARISON: Chest Single View dated 07/31/2018; Chest Single View dated 01/28/2018; CHEST PA AND LAT 2 VIEW dated 03/08/2014; CHEST PA AND LAT 2 VIEW dated 05/05/2011 FINDINGS: Portable technique limits examination quality. The lungs are grossly clear. The heart is normal in size. No displaced fractures. IMPRESSION: No acute intrathoracic process suspected.
--- NOTE | 2018-09-13 15:05 | RAD REPORT ---
EXAM DESCRIPTION: RAD - Pelvis - 09/13/2018 3:00 pm CLINICAL HISTORY: fall Trauma, pelvic pain COMPARISON: No comparisons FINDINGS: Mild osteoarthritis is seen involving both hips. No fracture or dislocation. No evidence o f AVN. IMPRESSION: Mild bilateral osteoarthritis.
[2018-09-13 15:08] LABS: Potassium 4.5 mmol/L (3.5-5.1)
--- NOTE | 2018-09-13 15:32 | EKG ---
Test Date: 2018-09-13 Test Time: 14:37:38 Library Monitor: AG/S MEASUREMENT RESULTS: Intervals: Rate: 103 TX: QRSD: 100 QT: 354 QTc: 463 [place]: P: TX: QRS: 52 T: 80 INTERPRETIVE STATEMENTS: Atrial fibrillation with rapid ventricular response Abnormal ECG Compared to ECG 07/31/2018 14:11:43 Ventricular premature complex(es) no longer present Electronically Signed On 09-13-18 15:31:52 MORTGAGE OPERATIONS MANAGER by Wilber Awan
[2018-09-13] MEDS ORDERED: TETANUS & DIPHTHERIA TOX,ADULT 0.5 ML VIAL ONE (15:43)
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
[2018-09-13 17:44] VITALS: BP 161/88; O2SAT 99
[2018-09-13 17:46] VITALS: TEMP 98.1
== END 2018-09-13 16:41 | disposition home or self-care (01) ==
LOC: ER 14:20
DX: S00.03XA Contusion of scalp, initial encounter (principal); N18.9 Chronic kidney disease, unspecified; W18.30XA Fall on same level, unspecified, initial encounter; Y93.01 Activity, walking, marching and hiking; Y92.89 Other specified places as the place of occurrence of the external cause; Z23 Encounter for immunization; Z79.01 Long term (current) use of anticoagulants; Z95.818 Presence of other cardiac implants and grafts; Z88.0 Allergy status to penicillin; Z88.5 Allergy status to narcotic agent; Z88.8 Allergy status to other drugs, medicaments and biological substances; E11.22 Type 2 diabetes mellitus with diabetic chronic kidney disease; I12.9 Hypertensive chronic kidney disease with stage 1 through stage 4 chronic kidney disease, or unspecified chronic kidney disease; I48.91 Unspecified atrial fibrillation
CPT/HCPCS: 36415; 70450; 71045; 72125; 72170; 80048; 82962; 85025; 85610; 85730; 86850; 86900; 86901; 90714; 93005; 99285

== ENCOUNTER 2018-11-20 12:34 | Observation (INO) | payer OTHER, MEDICARE ==
[2018-11-20 13:40] LABS: Absolute Lymphocytes (CBC) 1.7 K/uL (0.7-4.9); Absolute Monocytes 0.8 K/uL (0.1-1.3); Absolute Neutrophil 10.9 K/uL (1.8-8.0); Basophils % 0.3 % (0-1.3); Eosinophils % 0.8 % (0-4.4); Hematocrit 37.8 % (39.6-49.0); Lymphocytes % 12.4 % (15.3-44.8); MPV 6.6 fL (7.6-11.3); Monocytes % 6.3 % (3.3-12.3); RBC Red Blood Cell Count 4.47 M/uL (4.33-5.43)
[2018-11-20 13:43] LABS: Protime INR 2.73
[2018-11-20] MEDS ORDERED: NA CHLORIDE 0.9% 1,000 ML ONE (13:44)
[2018-11-20 14:00] LABS: ALT/SGPT 18 U/L (12-78); AST/SGOT 25 U/L (15-37); Albumin 3.4 g/dL (3.4-5.0); Alkaline Phosphatase 101 U/L (45-117); BUN Blood Urea Nitrogen 40 mg/dL (7-18); Bicarbonate 25 mmol/L (21-32); Bilirubin Direct 0.2 mg/dL (0-0.2); Bilirubin Total 0.6 mg/dL (0.2-1.0); Glucose Level 129 mg/dL (74-106); Magnesium 1.9 mg/dL (1.8-2.4); NT PRO-BNP 699 pg/mL (<450); Potassium 4.5 mmol/L (3.5-5.1); Protein, Total 7.8 g/dL (6.4-8.2); Sodium Level 139 mmol/L (136-145); Troponin (Emerg Dept Use Only) < 0.02 ng/mL (0.0-0.045)
[2018-11-20] MEDS ORDERED: METOPROLOL TARTRATE 5 MG/5 ML INJ IV ONE (14:21)
--- NOTE | 2018-11-20 15:08 | ER ---
Nurse's Notes [facility] Name: Bryn Richards Age: 83 yrs Sex: Male : 1935 Arrival Date: 11/20/2018 Time: 12:39 Bed 13 Private MD: Fazal Lentz E Diagnosis: Syncope and collapse;Unspecified atrial fibrillation Presentation: 11/20 12:43 Presenting complaint: Patient states: trouble walking d/t neuropathy for about a year sv but the last few days he has had increased # of falls (about 6). Care prior to arrival: None. 12:43 Method Of Arrival: Wheelchair sv 12:43 Acuity: CORBY 2 sv 12:44 Transition of care: patient was not received from another setting of care. Onset of sv symptoms was 2018. 13:00 Risk Assessment: Do you want to hurt yourself or someone else? Patient reports no jl7 desire to harm self or others. Initial Sepsis Screen: Does the patient meet any 2 criteria? No. Patient's initial sepsis screen is negative. Does the patient have a suspected source of infection? No. Patient's initial sepsis screen is negative. Historical: - Allergies: 12:45 Amiodarone; sv 12:45 Demerol; sv 12:45 Multaq; sv 12:45 PENICILLINS; sv 12:45 Prednisone; sv - Home Meds: 15:04 Calcium Carbonate Oral [Active]; clopidogrel 75 mg Oral tab 1 tab once daily [Active]; jl7 finasteride 5 mg Oral tab 1 tab once daily [Active]; gabapentin 300 mg Oral cap 1 cap twice a day [Active]; glipizide 5 mg Oral tab 2 tabs once daily [Active]; Iron CR 27 mg daily Oral [Active]; Januvia 100 mg Oral tab 1 tab once daily [Active]; losartan 50 mg Oral tab once daily [Active]; metoprolol succinate 25 mg Oral Tb24 1 tab once daily [Active]; Metoprolol Tartrate Oral [Active]; Nexium 40 mg Oral cpDR 1 cap once daily [Active]; Pravachol 40 mg Oral tab 1 tab once daily [Active]; Ranexa 500 mg Oral Tb12 1 tab 2 times per day [Active]; tamsulosin 0.4 mg Oral cp24 1 cap once daily [Active]; vitamin F09-fphqu acid 500-400 mcg Oral tab [Active]; Xarelto 15 mg Oral tab daily [Active]; - PMHx: 12:45 "internal bleeding"; Atrial Fib; Diabetes - NIDDM; Hyperlipidemia; Hypertension; sv - PSHx: 12:45 Heart stents; back; Left elbow; Prostate CA; left ankle; right ankle; heart cath; sv - Immunization history:: Adult Immunizations unknown. - Social history:: Patient/guardian denies using alcohol, street drugs, The patient lives with family, Smoking status: unknown. - Family history:: not pertinent. - Ebola Screening: : No symptoms or risks identified at this time. Screenin:30 Abuse screen: Denies threats or abuse. Denies injuries from another. Nutritional jl7 screening: No deficits noted. Tuberculosis screening: No symptoms or risk factors identified. Fall Risk Fall in past 12 months (25 points). IV access (20 points). Total Palumbo Fall Scale indicates High Risk Score (45 or more points). Fall prevention measures have been instituted. Side Rails Up X 2 Placed Close to Nursing Station Frequent Obs/Assessments Occuring Family Present and informed to notify staff if the need to leave the bedside As available patient and family educated on Fall Prevention Program and Strategies. Assessment: 13:10 General: Appears in no apparent distress. uncomfortable, Behavior is calm, cooperative, jl7 appropriate for age. Pain: Complains of pain in right arm. Neuro: Level of Consciousness is awake, alert, obeys commands, Oriented to person, place, time, situation, Moves all extremities. Speech is normal. Cardiovascular: Heart tones present Patient's skin is warm and dry. Respiratory: Airway is patent Respiratory effort is even, unlabored, Respiratory pattern is regular, symmetrical, Denies shortness of breath. GI: No signs and/or symptoms were reported involving the gastrointestinal system. : No signs and/or symptoms were reported regarding the genitourinary system. EENT: No signs and/or symptoms were reported regarding the EENT system. Derm: Skin is pink, warm \\T\\ dry. Musculoskeletal: Reports generalized weakness. 14:30 Reassessment: Pt laying in bed with eyes closed, respirations even and unlabored, no jl7 signs of distress noted at this time. 15:30 Reassessment: Patient appears in no apparent distress at this time. No changes from jl7 previously documented assessment. Patient and/or family updated on plan of care and expected duration. Pain level reassessed. Patient is alert, oriented x 3, equal unlabored respirations, skin warm/dry/pink. 16:20 Reassessment: Dr. Baez at bedside discussing plan of care. jl7 Vital Signs: 12:45 BP 82 / 53; Pulse 116; Resp 18; Temp 97.8; Pulse Ox 98% ; Weight 90.72 kg; Height 5 ft. sv 9 in. (175.26 cm); 13:30 BP 114 / 69; Pulse 110; Resp 16 S; Pulse Ox 100% on R/A; jl7 14:00 BP 112 / 73; Pulse 98; Resp 22 S; Pulse Ox 98% on R/A; jl7 14:30 BP 116 / 74; Pulse 91; Resp 19 S; Pulse Ox 97% on R/A; jl7 14:45 BP 120 / 67; Pulse 94; Resp 19 S; Pulse Ox 98% on R/A; jl7 15:07 BP 117 / 71; Pulse 95; Resp 21 S; Pulse Ox 98% on R/A; jl7 15:30 BP 133 / 87; Pulse 91; Resp 19 S; Pulse Ox 98% on R/A; jl7 16:32 BP 131 / 82; Pulse 88; Resp 19 S; Pulse Ox 99% on R/A; jl7 12:45 Body Mass Index 29.53 (90.72 kg, 175.26 cm) sv ED Course: 12:39 Patient arrived in ED. mr 12:40 Fazal Lentz MD is Private Physician. mr 12:44 Triage completed. sv 12:45 Arm band placed on. sv 12:55 Shravan Lutz MD is Attending Physician. ma2 12:59 Genet Gilbert RN is Primary Nurse. jl7 13:13 EKG done, by registered radiologic technologist. reviewed by Shravan Lutz MD. at1 13:30 Patient has correct armband on for positive identification. Placed in gown. Call light jl7 in reach. ui architect on. Pulse ox on. NIBP on. Warm blanket given. 13:30 Initial lab(s) drawn, by ky, sent to lab. Inserted saline lock: 22 gauge in right jl7 forearm, using aseptic technique. Blood collected. 14:50 X-ray completed. Portable x-ray completed in exam room. Patient tolerated procedure mh1 well. 14:52 XRAY Chest (1 view) In Process Unspecified. EDMS 15:06 Janeth Baez MD is Hospitalizing Provider. ma 16:09 Note: VQ SCAN COMPLETE, PT TOLERATED SCAN WELL, NO CHANGE, RETURNED TO ED NURSE jb2 NOTIFIED. BRIAN, RT(N), TELETYPEWRITER OPERATOR. 16:55 No provider procedures requiring assistance completed. Patient admitted, IV remains in jl7 place. intact, No redness/swelling at site. Administered Medications: 13:37 Drug: NS 0.9% 1000 ml Route: IV; Rate: 1 bolus; Site: right forearm; jl7 14:30 Follow up: IV Status: Completed infusion jl7 14:12 Drug: Metoprolol 5 mg Route: IVP; Site: right forearm; jl7 14:58 Drug: Metoprolol 5 mg Route: IVP; Site: right forearm; jl7 15:05 Drug: Metoprolol 5 mg Route: IVP; Site: right forearm; jl7 16:33 Follow up: Response: No adverse reaction; Cardiac rhythm changed [facility] Outcome: 15:07 Decision to Hospitalize by Provider. ma2 16:55 Admitted to Tele accompanied by tech, family with patient, via stretcher, room 201, [facility] with chart, Report called to PEGGY Hansen 16:55 Condition: stable 16:55 Discharge instructions given to patient, family, Instructed on the need for admit, Demonstrated understanding of instructions. 16:56 Patient left the ED. 7 Signatures: Dispatcher [employer] EDKari Elam RN RN Sofie Lai mr PayanGregorio2 Rosaline Lemos 1 Chastity Perez, turning machine operator helper EKG Marvin1 Genet Gilbert RN RN jl7 Shravan Lutz MD MD [facility] Corrections: (The following items were deleted from the chart) 12:45 12:43 Acuity: CORBY 3 lon
--- NOTE | 2018-11-20 15:08 | EDPHYS ---
Physician Documentation [facility] Name: Bryn Richards Age: 83 yrs Sex: Male : 1935 Arrival Date: 11/20/2018 Time: 12:39 Bed 13 Private MD: Fazal Lentz E ED Physician Shravan Lutz HPI: 11/20 14:04 This 83 yrs old Male presents to ER via Wheelchair with complaints of Fall ma2 Injury, Trouble Walking. 14:04 Details of fall: The patient fell from an upright position. Onset: The symptoms/episode ma2 began/occurred suddenly, 1 day(s) ago. Associated injuries: The patient sustained no obvious injury. Severity of symptoms: At their worst the symptoms were mild, in the emergency department the symptoms are unchanged. The patient has experienced a previous episode. Historical: - Allergies: 12:45 Amiodarone; sv 12:45 Demerol; sv 12:45 Multaq; sv 12:45 PENICILLINS; sv 12:45 Prednisone; sv - Home Meds: 15:04 Calcium Carbonate Oral [Active]; clopidogrel 75 mg Oral tab 1 tab once daily [Active]; jl7 finasteride 5 mg Oral tab 1 tab once daily [Active]; gabapentin 300 mg Oral cap 1 cap twice a day [Active]; glipizide 5 mg Oral tab 2 tabs once daily [Active]; Iron CR 27 mg daily Oral [Active]; Januvia 100 mg Oral tab 1 tab once daily [Active]; losartan 50 mg Oral tab once daily [Active]; metoprolol succinate 25 mg Oral Tb24 1 tab once daily [Active]; Metoprolol Tartrate Oral [Active]; Nexium 40 mg Oral cpDR 1 cap once daily [Active]; Pravachol 40 mg Oral tab 1 tab once daily [Active]; Ranexa 500 mg Oral Tb12 1 tab 2 times per day [Active]; tamsulosin 0.4 mg Oral cp24 1 cap once daily [Active]; vitamin D47-pnwup acid 500-400 mcg Oral tab [Active]; Xarelto 15 mg Oral tab daily [Active]; - PMHx: 12:45 "internal bleeding"; Atrial Fib; Diabetes - NIDDM; Hyperlipidemia; Hypertension; sv - PSHx: 12:45 Heart stents; back; Left elbow; Prostate CA; left ankle; right ankle; heart cath; sv - Immunization history:: Adult Immunizations unknown. - Social history:: Patient/guardian denies using alcohol, street drugs, The patient lives with family, Smoking status: unknown. - Family history:: not pertinent. - Ebola Screening: : No symptoms or risks identified at this time. ROS: 14:04 Constitutional: Negative for fever, chills, and weight loss, Cardiovascular: Negative ma2 for chest pain, palpitations, and edema, Respiratory: Negative for shortness of breath, cough, wheezing, and pleuritic chest pain, Abdomen/GI: Negative for abdominal pain, nausea, diarrhea, and constipation, MS/Extremity: Negative for injury and deformity, Allergy/Immunology: Negative for hives, rash, and allergies, Endocrine: Negative for neck swelling, polydipsia, polyuria, polyphagia, and marked weight changes. Exam: 14:12 Constitutional: This is a well developed, well nourished patient who is awake, alert, ma2 and in no acute distress. Chest/axilla: Normal chest wall appearance and motion. Nontender with no deformity. No lesions are appreciated. Cardiovascular: Regular rate and rhythm with a normal S1 and S2. No gallops, murmurs, or rubs. Normal PMI, no JVD. No pulse deficits. Respiratory: Lungs have equal breath sounds bilaterally, clear to auscultation and percussion. No rales, rhonchi or wheezes noted. No increased work of breathing, no retractions or nasal flaring. Abdomen/GI: Soft, non-tender, with normal bowel sounds. No distension or tympany. No guarding or rebound. No evidence of tenderness throughout. Skin: Warm, dry with normal turgor. Normal color with no rashes, no lesions, and no evidence of cellulitis. MS/ Extremity: Pulses equal, no cyanosis. Neurovascular intact. Full, normal range of motion. Vital Signs: 12:45 BP 82 / 53; Pulse 116; Resp 18; Temp 97.8; Pulse Ox 98% ; Weight 90.72 kg; Height 5 ft. sv 9 in. (175.26 cm); 13:30 BP 114 / 69; Pulse 110; Resp 16 S; Pulse Ox 100% on R/A; jl7 14:00 BP 112 / 73; Pulse 98; Resp 22 S; Pulse Ox 98% on R/A; jl7 14:30 BP 116 / 74; Pulse 91; Resp 19 S; Pulse Ox 97% on R/A; jl7 14:45 BP 120 / 67; Pulse 94; Resp 19 S; Pulse Ox 98% on R/A; jl7 15:07 BP 117 / 71; Pulse 95; Resp 21 S; Pulse Ox 98% on R/A; jl7 15:30 BP 133 / 87; Pulse 91; Resp 19 S; Pulse Ox 98% on R/A; jl7 16:32 BP 131 / 82; Pulse 88; Resp 19 S; Pulse Ox 99% on R/A; jl7 12:45 Body Mass Index 29.53 (90.72 kg, 175.26 cm) sv MDM: 12:55 Patient medically screened. ma2 14:04 Differential diagnosis: contusion, multiple trauma, sprain, strain. ma2 14:59 Data reviewed: vital signs, nurses notes, lab test result(s), radiologic studies. ma2 Counseling: I had a detailed discussion with the patient and/or guardian regarding: the historical points, exam findings, and any diagnostic results supporting the discharge/admit diagnosis, the presence of at least one elevated blood pressure reading (>120/80) during this emergency department visit, the need for further work-up and treatment in the hospital. Response to treatment: the patient's symptoms have markedly improved after treatment. 15:05 ED course: discussed with dr. santoyo, patient on xarelto, has no symptoms now no sob or ma2 LH, VS wnl pulse 88 will get v-q scan. 11/20 13:17 Order name: Basic Metabolic Panel; Complete Time: 14:16 11/20 13:17 Order name: CBC with Diff; Complete Time: 14:16 11/20 13:17 Order name: LFT's; Complete Time: 14:16 11/20 13:17 Order name: Magnesium; Complete Time: 14:16 11/20 13:17 Order name: NT PRO-BNP; Complete Time: 14:16 11/20 13:17 Order name: PT-INR; Complete Time: 14:16 11/20 13:17 Order name: Troponin (emerg Dept Use Only); Complete Time: 14:16 11/20 13:17 Order name: XRAY Chest (1 view) [facility] 11/20 13:17 Order name: UA 11/20 13:17 Order name: D-Dimer; Complete Time: 14:16 ct2 11/20 14:11 Order name: VQ scan (Nuclear Medicine) 11/20 13:06 Order name: EKG; Complete Time: 13:07 sv 11/20 13:06 Order name: EKG - Nurse/Tech; Complete Time: 13:33 sv 11/20 13:17 Order name: Cardiac monitoring; Complete Time: 13:33 ct2 11/20 13:17 Order name: EKG - Nurse/Tech; Complete Time: 13:33 ct2 11/20 13:17 Order name: IV Saline Lock; Complete Time: 13:33 [facility] 11/20 13:17 Order name: Labs collected and sent; Complete Time: 13:33 ct2 11/20 13:17 Order name: O2 Per Protocol; Complete Time: 13:33 [facility] 11/20 13:17 Order name: O2 Sat Monitoring; Complete Time: 13:33 ma2 Administered Medications: 13:37 Drug: NS 0.9% 1000 ml Route: IV; Rate: 1 bolus; Site: right forearm; jl7 14:30 Follow up: IV Status: Completed infusion jl7 14:12 Drug: Metoprolol 5 mg Route: IVP; Site: right forearm; jl7 14:58 Drug: Metoprolol 5 mg Route: IVP; Site: right forearm; jl7 15:05 Drug: Metoprolol 5 mg Route: IVP; Site: right forearm; jl7 16:33 Follow up: Response: No adverse reaction; Cardiac rhythm changed jl7 Disposition: 11/20/18 15:07 Hospitalization ordered by Janeth Santoyo for Observation. Preliminary diagnosis are Syncope and collapse, Unspecified atrial fibrillation. - Bed requested for Telemetry/MedSurg (observation). - Status is Observation. jl7 - Condition is Fair. - Problem is new. - Symptoms are unchanged. UTI on Admission? No Signatures: Dispatcher [employer] EDMS Callie Mojica Stephanie, RN RN sv Leal, Jahala, RN RN jl7 Shravan Lutz MD MD ct2 Corrections: (The following items were deleted from the chart) 14:17 14:03 Chest For PE Angio+CT.RAD.BRZ ordered. EDMS EDMS 15:07 15:07 Hospitalization Ordered by Janeth Santoyo MD for Observation. Preliminary diagnosis ma2 is Syncope and collapse. Bed requested for Telemetry/MedSurg (observation). Status is Observation. Condition is Fair. Problem is new. Symptoms are unchanged. UTI on Admission? No. ma2 16:09 15:07 11/20/2018 15:07 Hospitalization Ordered by Janeth Santoyo MD for Observation. bd Preliminary diagnosis is Syncope and collapse; Unspecified atrial fibrillation. Bed requested for Telemetry/MedSurg (observation). Status is Observation. Condition is Fair. Problem is new. Symptoms are unchanged. UTI on Admission? No. ma2 16:56 16:09 11/20/2018 15:07 Hospitalization Ordered by Janeth Santoyo MD for Observation. jl7 Preliminary diagnosis is Syncope and collapse; Unspecified atrial fibrillation. Bed requested for Telemetry/MedSurg (observation). Status is Observation. Condition is Fair. Problem is new. Symptoms are unchanged. UTI on Admission? No. bd
--- NOTE | 2018-11-20 15:18 | RAD REPORT ---
EXAM DESCRIPTION: RAD - Chest Single View - 11/20/2018 2:51 pm CLINICAL HISTORY: Chest pain, chest trauma COMPARISON: August 2018 TECHNIQUE: AP portable chest image was obtained 1440 hours . FINDINGS: No acute lung parenchymal process. Interstitial pattern is similar to comparison. Heart an d vasculature are normal. No measurable pleural effusion and no pneumothorax. No acute bony abnormali ty seen. No acute aortic findings suspected. IMPRESSION: No acute cardiopulmonary process. No significant change from comparison.
[2018-11-20] MEDS ORDERED: ACETAMINOPHEN 500 MG TAB PO PRN (16:58)
[2018-11-20] MEDS ORDERED: ONDANSETRON 4 MG/2 ML VIAL IV PRN (16:58)
[2018-11-20] MEDS: INSULIN -REGULAR HUMAN 50 UNIT/0.5 ML ML SQ SCH ×2 (16:58→20:53)
[2018-11-20 17:20] VITALS: BMI 30.9
--- NOTE | 2018-11-20 17:34 | RAD REPORT ---
EXAM DESCRIPTION: NM - Vent Perfusion VQ Scan - 11/20/2018 4:10 pm CLINICAL HISTORY: Chest pain, shortness of breath COMPARISON: Chest films same date TECHNIQUE: The patient was administered 12.8 mCi Xenon 133 gas with posterior projection inspiration , equilibrium, and washout views obtained. The patient was then administered 6.9 mCi Tc-99m MAA label ed RBCs followed by standard 8 view protocol. FINDINGS: There is good distribution of the Xenon with no ventilation defects identified. Moderate d iffuse air trapping present. Small focal defects seen in the posterior inferior right lower lung field. There is a slightly hetero geneous distribution in the posterior left lung field. IMPRESSION: Low probability V/Q scan for pulmonary embolism. No ventilation focal defect. There is moderate air trapping.
[2018-11-20] MEDS: NA CHLORIDE 0.9% 1,000 ML IV SCH (18:18)
[2018-11-20] MEDS: RIVAROXABAN 15 MG TABLET PO SCH (18:30)
--- NOTE | 2018-11-20 20:29 | RAD REPORT ---
EXAM DESCRIPTION: MRI - Lumbar Spine Wo Con - 11/20/2018 7:52 pm CLINICAL HISTORY: Multiple falls due to bilateral leg weakness, back pain, radiculopathy COMPARISON: September 2018 MRI study TECHNIQUE: Sagittal T1-weighted, T2-weighted and T2-STIR weighted sequences were obtained. Axial T1 -weighted and heavily T2-weighted sequenceswere obtained through the lumbar disc levels. FINDINGS: Lumbar bodies are normal in height and alignment. No suspicious marrow signal. No paraspi nal masses. Degenerative marrow changes are present along the left lateral margin of the L4-5 disc le crow matching the prior study Conus is normal with no clumping or thickening of the cauda equina. T12-L1 level: No significant findings. L1-2 level: No significant findings. L2-3 level: Disc desiccation present without loss in disc height. Mild disc bulge in each exit forame n. Ample fat surrounds the exiting nerve roots. No significant degenerative change or ligamentous thi ckening. L3-4 level: Disc is desiccated without loss in disc height. Bilateral foraminal disc bulge is present with mild. Ample perineural fat present. Midline annular fissure is present. Facet degenerative allan ge and ligamentous thickening are present relatively mild. Findings combine for borderline to mild st enosis at 9-10 mm. L4-5 level: Significant loss in disc height with disc bulge and endplate spurring. No significant rig ht foraminal stenosis. No central spinal stenosis. Disc bulge and spurring changes cause a mild to mo derate left foraminal stenosis. Left L4 pars interarticularis defect is present along with degenerati ve change. L5-S1 level: Disc is desiccated without herniation or significant degree of disc bulge. No canal sten osis or significant foraminal encroachment. IMPRESSION: No compression fracture or acute vertebral body marrow finding. Degenerative changes are present most pronounced at the L4-5 disc level where there is significant le ft foraminal stenosis. L3-4 degenerative change with borderline to mild central spinal stenosis. Full findings are detailed in the body of the report. Description may vary between the reports. [facility] er, exam is not felt to be significantly different from September 2018.
--- NOTE | 2018-11-20 20:49 | EKG ---
Test Date: 2018-11-20 Test Time: 13:07:24 Librarian Assistant: HARIKA MEASUREMENT RESULTS: Intervals: Rate: 119 [place]: QRSD: 94 QT: 332 QTc: 467 [place]: P: [place]: QRS: 23 T: 63 INTERPRETIVE STATEMENTS: Atrial fibrillation with rapid ventricular response Abnormal ECG Compared to ECG 09/13/2018 14:37:38 No significant changes Electronically Signed On 11-20-18 20:47:53 MEDICAL SURGICAL TECH by Jeremy Joe
[2018-11-20] MEDS: METOPROLOL XL 25 MG TAB PO SCH (20:52)
[2018-11-20] MEDS: ATORVASTATIN 10 MG TAB PO SCH (20:53)
[2018-11-20] MEDS ORDERED: HOME MED 1 EA UNK (Pravastatin Sodium [Pravastatin Sodium] 40 MG) PO SCH (21:00)
[2018-11-21] MEDS: NA CHLORIDE 0.9% 1,000 ML IV SCH ×4 (02:58→16:14)
--- NOTE | 2018-11-21 03:31 | HP ---
Date of Admission: 11/20/2018 Code Status: Full. Chief Complaint: Fall and generalized weakness. Consultants: Dr. Scott with Nephrology. History Of Present Illness: The patient is an 83-year-old male with past medical history of atrial f ibrillation, on Xarelto; coronary artery disease, on Plavix; diabetes; and history of prostate cancer , who was in his usual state of health until the day of admission when the patient has had multiple f alls due to generalized weakness. The patient does live alone, has started to use his walker, [facility] states that patient's legs gave out under him and has fallen 5 times today. He denies any loss of consciousness, no seizure-type activity, no loss of bowel or bladder function. He denies any head tr auma. Does report hitting his elbow. The patient denies any fevers or chills. Does report decrease d p.o. intake and appears dehydrated. Denies any chest pain. The patient's symptoms are constant, m oderate, progressively worsening. No alleviating or aggravating factors. The patient's daughter esme dodd concerned and brought the patient to the hospital. Upon arrival, his vital signs showed decrease d blood pressure 82/53. He was in atrial fibrillation with RVR, rate in the 120s. He was afebrile. The patient was given Lopressor x2, which decreased his rate to 90s. The patient's workup revealed elevated creatinine level above his baseline at 2.18. White count was elevated at 13.6. D-dimer was also elevated, and due to his kidney function being elevated unable to do CT angio. Therefore, V/Q scan was ordered. The patient's chest x-ray did not show any significant change and there is no acut e cardiopulmonary process apparent. The patient was then referred for admission. When seen in the E R, he was awake, alert, oriented x3, somewhat hard of hearing, some mild distress. Past Medical History: 1.Chronic kidney disease. 2.Diabetes. 3.Atrial fibrillation, on Xarelto. 4.History of prostate cancer in 1991, status post radiation therapy. Past Surgical History: Left elbow surgery. Allergies: AMIODARONE, PENICILLIN, AND PREDNISONE. Medications: List reviewed. Social History: The patient is , lives alone. Does use a walker for ambulation. Has been napoles ving multiple falls recently. Independent in his activities of daily living. Good social support, h as a daughter. Denies any tobacco use, alcohol use, or illicit drug use. Family History: Mother had diabetes. Review of Systems: An 11-point system reviewed, negative except as per HPI. Physical Examination: Vital Signs: Blood pressure 82/53, pulse 116, respirations 18, temperature 97.8, O2 98% on room air. GENERAL: Awake, alert, oriented x3, ill-appearing elderly male. HEENT: Normocephalic, atraumatic. PERRLA. EOMI. Dry mucous membranes. Oropharynx is clear. Poor dentition. Conjunctivae anicteric. NECK: Supple. No JVD. Trachea midline. CV: S1, S2. Irregularly irregular. Peripheral pulses present. RESPIRATORY: Moving air well bilaterally. No wheezing or stridor. No use of accessory muscles JENNA ROINTESTINAL: Abdomen is soft, nontender, nondistended. Positive bowel sounds. EXTREMITIES: No clubbing, cyanosis, or edema. No calf tenderness. NEURO: Cranial nerves 2 through 12 intact grossly. No focal neurological deficit. Speech is normal . Strength is 5/5 bilateral upper and lower extremities. Sensation intact to light touch. The greg ent does have overall generalized weakness. No focal weakness present. SKIN: The patient has multiple abrasions and bruises on his lower extremities and his elbow. MUSCULOSKELETAL: Point tenderness on the right lower rib. PSYCH: Mood is okay. Affect is full. Insight and judgment are good. Laboratory Data: Sodium 139, potassium 4.5, chloride 108, CO2 25, BUN 40, creatinine 2.18, glucose 1 29, calcium 10, magnesium 1.9. Troponin less than 0.02. BNP 699. Albumin 3.4. WBC 13.6, H and H 1 2.4 and 37.8, platelets 263, neutrophils 80%. D-dimer 1641. INR 2.73. UA is pending. Imaging Studies: Chest x-ray shows no acute cardiopulmonary process, no change from previous. V/Q s can is pending. Assessment And Plan: An 83-year-old male with, 1.Generalized weakness. The patient has lower extremity weakness, may be related to lumbar radiculo ratna. The patient denies any bowel or bladder incontinence. No numbness or tingling in the perinea l area. May benefit from neurology evaluation, if available. Consider MRI of the lumbar spine. We will obtain physical therapy evaluation. Fall precautions. 2.Atrial fibrillation with rapid ventricular response, rate in the 120s. The patient received Lopre ssor IV x2. Rate has now improved. We will continue on home medications. Monitor on telemetry. We will continue Xarelto. 3.Acute on chronic kidney disease, stage 3. Creatinine is elevated above baseline. We will start o n IV fluids, likely due to prerenal azotemia. Nephrology consultation. 4.Leukocytosis with left shift, unclear etiology. We will follow up on urine sample. Chest x-ray i s clear. 5.History of prostate cancer, status post radiation therapy. 6.Multiple falls. Again, we will place on fall precautions. Physical therapy evaluation may be due to neurological etiology. 7.Gastrointestinal and deep venous thrombosis prophylaxis with proton pump inhibitor and Xarelto. Plan: Admit the patient to Med-Surg, place as observation. The patient does have medical power of a ttorney and living will. We will follow up on lung V/Q scan. /CORINE Voice ID: [id number]
[2018-11-21 04:15] LABS: Urine Appearance CLEAR; Urine Bilirubin NEGATIVE (NEG); Urine Blood NEGATIVE (NEG); Urine Color YELLOW; Urine Glucose NEGATIVE (NEG); Urine Protein NEGATIVE (NEG); Urine Specific Gravity 1.015 (1.005-1.030); Urine Urobilinogen 0.2 mg/dL (0.2-1.0); Urine pH 5.5 (5.0-7.0)
[2018-11-21 04:29] LABS: Urine Microscopic Reflex NO UMIC
[2018-11-21 06:17] LABS: Absolute Lymphocytes (CBC) 1.8 K/uL (0.7-4.9); Absolute Monocytes 0.8 K/uL (0.1-1.3); Absolute Neutrophil 7.2 K/uL (1.8-8.0); Basophils % 0.2 % (0-1.3); Eosinophils % 1.9 % (0-4.4); Hematocrit 34.5 % (39.6-49.0); Lymphocytes % 17.9 % (15.3-44.8); MPV 6.7 fL (7.6-11.3); Monocytes % 8.2 % (3.3-12.3); RBC Red Blood Cell Count 4.09 M/uL (4.33-5.43)
[2018-11-21 06:44] LABS: Albumin 2.6 g/dL (3.4-5.0); Bilirubin Total 0.4 mg/dL (0.2-1.0); Potassium 4.1 mmol/L (3.5-5.1); Protein, Total 6.4 g/dL (6.4-8.2)
[2018-11-21] MEDS: INSULIN -REGULAR HUMAN 50 UNIT/0.5 ML ML SQ SCH ×4 (07:30→20:26)
[2018-11-21] MEDS ORDERED: LOSARTAN POTASSIUM 50 MG TABLET PO SCH (09:00)
[2018-11-21] MEDS ORDERED: HOME MED 1 EA UNK (Glipizide [Glipizide Er] 10 MG) PO SCH (09:00)
[2018-11-21] MEDS: IRON 27 MG PO SCH (09:00)
[2018-11-21] MEDS ORDERED: HOME MED 1 EA UNK (Esomeprazole Mag Trihydrate [Nexium] 40 MG) PO SCH (09:00)
[2018-11-21] MEDS: PANTOPRAZOLE 40MG TABLET PO SCH (10:22)
[2018-11-21] MEDS: GLIPIZIDE S.A. 5 MG TAB PO SCH (10:22)
[2018-11-21] MEDS: SITAGLIPTIN PHOS 100 MG TAB PO SCH (10:23)
[2018-11-21] MEDS: TAMSULOSIN 0.4 MG SR CAP PO SCH (10:23)
[2018-11-21] MEDS: FINASTERIDE 5 MG TAB PO SCH (10:24)
[2018-11-21 13:00] LABS: Urine Appearance CLEAR; Urine Bilirubin NEGATIVE (NEG); Urine Blood NEGATIVE (NEG); Urine Color YELLOW; Urine Glucose NEGATIVE (NEG); Urine Protein NEGATIVE (NEG); Urine Urobilinogen 0.2 mg/dL (0.2-1.0); Urine pH 5.5 (5.0-7.0)
[2018-11-21 13:02] LABS: Urine Microscopic Reflex NO UMIC
--- NOTE | 2018-11-21 13:30 | P.PN ---
Subjective Date of Service: 11/21/18 Chief Complaint: Recurrent falls, generalized weakness Subjective: No C/O voiced, Improving Patient seen and examined at bedside. No family at bedside. Chart reviewed and case discussed with nursing staff. Reports feeling better, no complaints this morning. Has not tried to get a better work with physical therapy yet. Review of Systems 10-point ROS is otherwise unremarkable Physical Examination - Vital Signs Temperature: 97.8 F Blood Pressure: 130/67 Pulse: 97 Respirations: 18 Pulse Ox (%): 96 - Physical Exam General: Alert, In no apparent distress, Oriented x3 HEENT: Atraumatic, PERRLA, EOMI Neck: Supple, JVD not distended Respiratory: Clear to auscultation bilaterally, Normal air movement Cardiovascular: Normal S1 S2, Irregular heart rate/rhythm (irregularly irregular ) Gastrointestinal: Normal bowel sounds, No tenderness Musculoskeletal: No tenderness Integumentary: No rashes Neurological: Normal speech, Normal tone, Normal affect - Studies Laboratory Data (last 24 hrs) 11/20/18 13:23: PT 32.6 H, INR 2.73 11/20/18 13:23: WBC 13.6 H, Hgb 12.4 L, Hct 37.8 L, Plt Count 263 11/20/18 13:23: Sodium 139, Potassium 4.5, BUN 40 H, Creatinine 2.18 H, Glucose 129 H, Magnesium 1.9, Total Bilirubin 0.6, AST 25, ALT 18, Alkaline Phosphatase 101 Assessment And Plan - Current Problems (Diagnosis) (1) Multiple falls Current Visit: Yes Status: Acute (2) Generalized weakness Current Visit: Yes Status: Acute (3) MICHAEL (acute kidney injury) Current Visit: Yes Status: Acute (4) CKD (chronic kidney disease) Onset Date: 01/31/18 Current Visit: Yes Status: Chronic (5) Leukocytosis Current Visit: Yes Status: Acute (6) History of prostate cancer Onset Date: 01/31/18 Current Visit: Yes Status: Chronic (7) Afib Onset Date: 01/31/18 Current Visit: Yes Status: Chronic Qualifiers: Atrial fibrillation type: chronic Qualified Code(s): I48.2 - Chronic atrial fibrillation (8) HTN (hypertension) Current Visit: Yes Status: Chronic Qualifiers: Hypertension type: essential hypertension (9) Diabetes Onset Date: 04/10/18 Current Visit: Yes Status: Chronic Qualifiers: Diabetes mellitus type: type 2 Diabetes mellitus snf insulin use: without superintendent building use Diabetes mellitus complication status: without complication Qualified Code(s): E11.9 - Type 2 diabetes mellitus without complications - Plan This is a 83-year-old male with: Generalized weakness (Acute) R53.1 This patient has lower extremity weakness, may be related to lumbar radiculopathy. 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 Physical therapy consulted. Recommending outpatient rehab. Social work consulted Multiple falls (Acute) R29.6 Continue fall precautions. Continue working with physical therapy MICHAEL (acute kidney injury) (Acute) N17.9 Improving creatinine today. Now closer to baseline, which is around 1.4-1.6 CKD (chronic kidney disease) (Chronic 01/31/18) N18.9 Stage III, baseline creatinine of 1.4-1.6 History of prostate cancer (Chronic 01/31/18) Z85.46 Status post radiation therapy (1991) Afib (Chronic 01/31/18) I48.91 Rate now controlled on home metoprolol. Continue home medications of metoprolol and xarelto Diabetes (Chronic 01/31/18) E11.9 Continue Accu-Cheks and sliding scale insulin. Will continue to adjust as needed HTN (hypertension) (Chronic) I10 Stable. Continue home medications Leukocytosis (Acute) D72.829 Now resolved DVT prophylaxis: Xarelto GI prophylaxis: Protonix, home medication Diet: Diabetic Disposition: Pending symptomatic improvement. Social work involved for possible for outpatient rehab. Likely discharge home in the next 24-48 hr Time Spent Managing PTS Care (In Minutes): 35
--- NOTE | 2018-11-21 14:50 | RAD REPORT ---
EXAM DESCRIPTION: US - Renal Ultrasound-Complete - 11/21/2018 2:28 pm CLINICAL HISTORY: Acute on chronic kidney disease COMPARISON: None. FINDINGS: The right kidney measures 11.1 x 4.9 x 4.8 cm. The left kidney measures 12.2 x 5.3 x 3.6 cm. Bilateral cortical thinning in areas of both kidneys. Increased cortical echogenicity noted. No h ydronephrosis or suspicious mass. Punctate 6 mm cyst noted superior right kidney. No bladder wall thickening or mass. No intraluminal stone or mass. IMPRESSION: Bilateral medical renal disease evident in normal sized kidneys. No hydronephrosis or solid mass of either kidney.
[2018-11-21] MEDS: RIVAROXABAN 15 MG TABLET PO SCH (16:13)
[2018-11-21] MEDS: METOPROLOL XL 25 MG TAB PO SCH (20:26)
[2018-11-21] MEDS: ATORVASTATIN 10 MG TAB PO SCH (20:26)
[2018-11-22] MEDS: NA CHLORIDE 0.9% 1,000 ML IV SCH ×2 (00:31→09:41)
--- NOTE | 2018-11-22 02:20 | CON ---
Date of Consultation: 11/21/2018 Reason For Consultation: Elevated BUN and creatinine, fluid management, and hypertension. History Of Present Illness: This is a pleasant 83-year-old gentleman with significant past medical h istory of hypertension, gout, prostate CA, diabetes, and atrial fibrillation. The patient was in his regular state of health. Apparently lately has multiple falls, feeling weak for last fall yesterday , and for that reason brought to the hospital. Primary workup for the patient show elevated BUN and creatinine. For that reason, we are being consulted. The patient was started on IV hydration. Crea tinine dropped from above 2 to 1.6. The patient apparently was on PARAM inhibitor as outpatient. The patient, according to him, he has been taking ibuprofen p.r.n. The patient denied any nausea, any vo miting, or any shortness of breath. As I mentioned, the patient on admission has atrial fibrillation with RVR and creatinine was above 2. Currently creatinine down to 1.6. Past Medical History: Include, 1.Gout. 2.Hypertension. 3.Hyperlipidemia. 4.Prostate CA. Allergies: NO KNOWN DRUG ALLERGIES. Social History: Lives with the family. Denies smoking. Denies drinking. Denies drugs abuse. Home Medications: Reviewed. Past Surgical History: Include prostate surgery. Review of Systems: Head and Neck: No red eye. No ear pain. GI: He has no nausea, no vomiting. : No polyuria, no dysuria, and no hematuria. CARTRIDGE LOADER: Not applicable. Respiratory: No shortness of breath. Cardiovascular: No chest pain and has loss of consciousness. Musculoskeletal: No joint pain. Endocrine: No polydipsia. Skin: No rash. Neuro: Has fall. Physical Examination: General: When I saw the patient, the patient was lying in bed. Vital Signs: Blood pressure 113/65, pulse of 95, and afebrile. Chest: Clear to auscultation. Heart: S1, S2. Systolic murmur. Abdomen: Soft, nontender. Extremities: No edema. Neurologic: Alert and nonfocal. Laboratory Data: WBC 10, hemoglobin and hematocrit of 11.4/34.5, and platelets 226. Sodium 141, pot assium 4.1, bicarb 20, BUN 29, and creatinine 1.6. Urinalysis, specific gravity of 1.020. Protein creatinine is 0.2. Assessment And Plan: 1.Acute kidney injury, mostly secondary to prerenal on the recovery phase. I am going to continue h ydration for today. We will send for renal ultrasound, and we will monitor. We will hold PARAM inhibi tor for the time being. 2.Hypertension with the presence of acute kidney injury, hold PARAM inhibitor. 3.Anemia of chronic kidney disease, stable. No need for transfusion. 4.Diabetes as by primary. 5.Recurrent fall. We will follow up with the primary. CHANTEL Voice ID: [id number] Report ID: [id number]
[2018-11-22] MEDS: INSULIN -REGULAR HUMAN 50 UNIT/0.5 ML ML SQ SCH ×3 (07:30→16:30)
[2018-11-22] MEDS: PANTOPRAZOLE 40MG TABLET PO SCH (08:51)
[2018-11-22] MEDS: IRON 27 MG PO SCH (09:00)
[2018-11-22] MEDS: TAMSULOSIN 0.4 MG SR CAP PO SCH (09:42)
[2018-11-22] MEDS: GLIPIZIDE S.A. 5 MG TAB PO SCH (09:42)
[2018-11-22] MEDS: SITAGLIPTIN PHOS 100 MG TAB PO SCH (09:42)
[2018-11-22] MEDS: FINASTERIDE 5 MG TAB PO SCH (09:42)
[2018-11-22 11:03] LABS: Potassium 4.3 mmol/L (3.5-5.1)
--- NOTE | 2018-11-22 14:23 | PN ---
Date of Progress Note: 11/22/2018 NEPHROLOGY FOLLOWUP Subjective: The patient is doing better, more awake today. Physical Examination: Vital Signs: Blood pressure 139/65, pulse of 85, afebrile. Chest: Clear to auscultation. Heart: S1 and S2, regular. Abdomen: Soft, nontender. Extremities: Trace edema. Laboratory Data: WBC 10.0, H and H of 11.4 and 34.5, platelets 226. Sodium of 142, potassium 4.3, b icarb 23, BUN 23, creatinine 1.3, and calcium 8.9. Current Medications: The patient on it includes Xarelto, Flomax, metoprolol 25 b.i.d., Ranexa, Zofra n, pantoprazole, glipizide, finasteride, IV fluid. Assessment And Plan: 1.Acute kidney injury secondary to prerenal, continue to recover. I am going to go ahead and discon tinue IV fluid. We will keep holding blood pressure medication for the time being and we will monito r. 2.Hypertension, controlled, optimal, keep holding blood pressure medication for the time being. 3.Fall, as by primary. The patient cleared from the renal standpoint for discharge planning to follow up in the office in 2 weeks. CHANTEL Voice ID: [id number] Report ID: [id number]
[2018-11-22 17:41] VITALS: BP 138/62; TEMP 98
[2018-11-22] MEDS: RIVAROXABAN 15 MG TABLET PO SCH (17:59)
[2018-11-22 19:27] VITALS: O2SAT 98
--- NOTE | 2018-11-29 09:07 | P.SSS ---
Patient History Date of Service: 11/22/18 Reason for admission: Recurrent falls, generalized weakness History of Present Illness: The patient is an 83-year-old male with past medical history of atrial fibrillation, on Xarelto; coronary artery disease, on Plavix; diabetes; and history of prostate cancer, who was in his usual state of health until the day of admission when the patient has had multiple falls due to generalized weakness. The patient does live alone, has started to use his walker, however states that patient's legs gave out under him and has fallen 5 times today. He denies any loss of consciousness, no seizure-type activity, no loss of bowel or bladder function. He denies any head trauma. Does report hitting his elbow. The patient denies any fevers or chills. Does report decreased p.o. intake and appears dehydrated. Denies any chest pain. The patient's symptoms are constant , moderate, progressively worsening. No alleviating or aggravating factors. The patient's daughter became concerned and brought the patient to the hospital. Upon arrival, his vital signs showed decreased blood pressure 82/53. He was in atrial fibrillation with RVR, rate in the 120s. He was afebrile. The patient was given Lopressor x2, which decreased his rate to 90s. The patient's workup revealed elevated creatinine level above his baseline at 2.18. White count was elevated at 13.6. D-dimer was also elevated, and due to his kidney function being elevated unable to do CT angio. Therefore, V/Q scan was ordered. The patient's chest x-ray did not show any significant change and there is no acute cardiopulmonary process apparent. The patient was then referred for admission. When seen in the ER, he was awake, alert, oriented x3, somewhat hard of hearing, some mild distress. Allergies amiodarone Allergy (Severe, Verified 11/20/18 17:39) Anaphylaxis Penicillins Allergy (Severe, Verified 11/20/18 17:39) Anaphylaxis dronedarone [From Multaq] Allergy (Intermediate, Verified 11/20/18 17:39) Hives/Rash prednisone Adverse Reaction (Mild, Verified 11/20/18 17:39) "tired and weak" Home Medications: Calcium Carbonate [Calcium] 600 mg PO DAILY 01/28/18 Cyanocobalamin [Vitamin B-12*] 500 mcg PO DAILY 01/28/18 Gabapentin [Gralise] 300 mg PO BID PRN 01/28/18 Metoprolol Succinate [Toprol Xl*] 25 mg PO BEDTIME 01/28/18 Pravastatin Sodium 40 mg PO BEDTIME 01/28/18 Sitagliptin Phosphate [Januvia*] 100 mg PO DAILY 01/28/18 Tamsulosin [Flomax*] 0.4 mg PO DAILY 01/28/18 Esomeprazole Mag Trihydrate [Nexium] 40 mg PO DAILY 11/20/18 Glipizide [Glipizide Xl] 5 mg PO BID 11/20/18 Iron 27 mg PO DAILY 11/20/18 Ranolazine [Ranexa] 500 mg PO BID 11/20/18 Rivaroxaban [Xarelto*] 15 mg PO BEDTIME 11/20/18 - Past Medical/Surgical History Has patient received pneumonia vaccine in the past: Yes Diabetic: Yes -: DM Neuropathy -: HEART STENT -: PROSTATE CA -: AFIB -: left elbow surgery -: COLONOSCOPY - Family History Mother -: Diabetes - Social History Smoking Status: Former smoker Alcohol use: No CD- Drugs: No Caffeine use: No Place of Residence: Home Review of Systems 10-point ROS is otherwise unremarkable Physical Examination - Vital Signs Temperature: 98 F Blood Pressure: 138/62 Pulse: 89 Respirations: 18 Pulse Ox (%): 98 - Physical Exam General: Alert, In no apparent distress HEENT: Atraumatic, PERRLA, Mucous membr. moist/pink, EOMI, Sclerae nonicteric Neck: Supple, 2+ carotid pulse no bruit, No LAD, Without JVD or thyroid abnormality Respiratory: Clear to auscultation bilaterally, Normal air movement Cardiovascular: Regular rate/rhythm, Normal S1 S2 Gastrointestinal: Normal bowel sounds, No tenderness Musculoskeletal: No tenderness Integumentary: No rashes Neurological: Normal gait, Normal speech, Normal strength at 5/5 x4 extr, Normal tone, Normal affect Lymphatics: No axilla or inguinal lymphadenopathy - Diagnosis (Problem(s)) (1) Multiple falls Status: Acute (2) Generalized weakness Status: Acute (3) MICHAEL (acute kidney injury) Status: Acute (4) CKD (chronic kidney disease) Onset Date: 01/31/18 Status: Chronic (5) Leukocytosis Status: Acute (6) History of prostate cancer Onset Date: 01/31/18 Status: Chronic (7) Afib Onset Date: 01/31/18 Status: Chronic Qualifiers: Atrial fibrillation type: chronic Qualified Code(s): I48.2 - Chronic atrial fibrillation (8) HTN (hypertension) Status: Chronic Qualifiers: Hypertension type: essential hypertension (9) Diabetes Onset Date: 01/31/18 Status: Chronic Qualifiers: Diabetes mellitus type: type 2 Diabetes mellitus tacker elastic band insulin use: without custodial use Diabetes mellitus complication status: without complication Qualified Code(s): E11.9 - Type 2 diabetes mellitus without complications Treatment Summary: Generalized weakness (Acute) R53.1 This patient has lower extremity weakness, may be related to lumbar radiculopathy. 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 Physical therapy consulted. Recommending outpatient rehab. Social work consulted. Discussed with family the need to set up outpatient rehab. Per daughter, she is not comfortable letting patient live alone at home. Discussed that medically cleared and he does not have any needs for him to be in the hospital. It was recommended to the patient and family that he may benefit from living in an assisted living place. Patient stated that he will think about it and let his daughter know to have that set up if he decided. Multiple falls (Acute) R29.6 Continue fall precautions. MICHAEL (acute kidney injury) (Acute) N17.9 He was started on IVF. Cr at baseline prior to discharge. BL is around 1.4-1.6 CKD (chronic kidney disease) (Chronic 01/31/18) N18.9 Stage III, baseline creatinine of 1.4-1.6 History of prostate cancer (Chronic 01/31/18) Z85.46 Status post radiation therapy (1991) Afib (Chronic 01/31/18) I48.91 Stable on home medications of metoprolol and xarelto - Disposition Discharge Date: 11/22/18 Disposition: ROUTINE DISCHARGE Condition: GOOD Consultations: Dr. Scott, Nephrology Patient Discharge Instructions: Please follow up with the primary care physician in 1 week. Please return to the ER for worsening symptoms. Please hold losartan medication until you see your primary care physician for repeat lab work and follow up Diet: AHA Activity: Ad caryn Time Spent Managing Pts Care (In Minutes): 70
== END 2018-11-22 19:28 | disposition home or self-care (01) ==
LOC: ER 12:34 → ERHOLD 15:49 → 2ND 16:53
PROVIDERS: ADMIT Family Medicine; ATTEND Family Medicine
DX: R53.1 Weakness (principal); I48.91 Unspecified atrial fibrillation; I25.10 Atherosclerotic heart disease of native coronary artery without angina pectoris; I12.9 Hypertensive chronic kidney disease with stage 1 through stage 4 chronic kidney disease, or unspecified chronic kidney disease; E11.22 Type 2 diabetes mellitus with diabetic chronic kidney disease; N18.3 Chronic kidney disease, stage 3 (moderate); N17.9 Acute kidney failure, unspecified; Z91.81 History of falling; Z85.46 Personal history of malignant neoplasm of prostate; Z79.01 Long term (current) use of anticoagulants; Z95.5 Presence of coronary angioplasty implant and graft; Z88.0 Allergy status to penicillin; Z87.891 Personal history of nicotine dependence; D63.1 Anemia in chronic kidney disease
CPT/HCPCS: 36415 ×2; 71045; 72148; 76770; 78582; 80048 ×2; 80053; 80076; 81003 ×2; 82570; 82962 ×9; 83735 ×2; 83880; 84156; 84484; 85025 ×2; 85379; 85610; 93005; 94760 ×5; 96361; 96374; 97116 ×5; 97163; 99285; A9540; A9558; G0378 ×2; J7030 ×6

== ENCOUNTER 2018-12-31 09:29 | Emergency (ER) | payer OTHER, MEDICARE ==
--- NOTE | 2018-12-31 10:22 | RAD REPORT ---
EXAM DESCRIPTION: CT - Head Brain Wo Cont - 12/31/2018 10:11 am CLINICAL HISTORY: TRAUMA Trauma, head injury COMPARISON: Head Brain Wo Cont dated 01/28/2018 TECHNIQUE: All CT scans are performed using dose optimization technique as appropriate and may inclu de automated exposure control or mA/KV adjustment according to patient size. FINDINGS: No intracranial hemorrhage, hydrocephalus or extra-axial fluid collection.Mild generalized brain atrophy is present with mild periventricular and deep white matter chronic microvascular ische j carlos changes.No areas of brain edema or evidence of midline shift. The paranasal sinuses and mastoids are essentially clear. The calvarium is intact. IMPRESSION: No acute intracranial abnormality.
[2018-12-31 10:50] LABS: Absolute Lymphocytes (CBC) 1.3 K/uL (0.7-4.9); Absolute Monocytes 0.9 K/uL (0.1-1.3); Absolute Neutrophil 10.7 K/uL (1.8-8.0); Basophils % 0.3 % (0-1.3); Eosinophils % 0.9 % (0-4.4); Hematocrit 36.3 % (39.6-49.0); Lymphocytes % 10.1 % (15.3-44.8); MPV 6.3 fL (7.6-11.3); Monocytes % 6.6 % (3.3-12.3)
[2018-12-31 10:51] LABS: Protime INR 2.41
[2018-12-31 11:06] LABS: ALT/SGPT 17 U/L (12-78); AST/SGOT 13 U/L (15-37); Albumin 2.8 g/dL (3.4-5.0); Alkaline Phosphatase 103 U/L (45-117); BUN Blood Urea Nitrogen 33 mg/dL (7-18); Bicarbonate 27 mmol/L (21-32); Bilirubin Direct 0.2 mg/dL (0-0.2); Bilirubin Total 0.5 mg/dL (0.2-1.0); Glucose Level 192 mg/dL (74-106); NT PRO-BNP 653 pg/mL (<450); Protein, Total 7.4 g/dL (6.4-8.2); Sodium Level 138 mmol/L (136-145); Troponin (Emerg Dept Use Only) < 0.02 ng/mL (0.0-0.045)
--- NOTE | 2018-12-31 11:18 | RAD REPORT ---
EXAM DESCRIPTION: RAD - Chest Single View - 12/31/2018 10:50 am CLINICAL HISTORY: MALAISE Chest pain. COMPARISON: Chest Single View dated 11/20/2018; Chest Single View dated 09/13/2018; Chest Single View dated 07/31/2018; Chest Single View dated 01/28/2018 FINDINGS: Portable technique limits examination quality. The lungs are grossly clear. The heart is normal in size. No displaced fractures. IMPRESSION: No acute intrathoracic process suspected.
[2018-12-31] MEDS ORDERED: NA CHLORIDE 0.9% 500 ML ONE (13:01)
--- NOTE | 2018-12-31 13:45 | EDPHYS ---
Physician Documentation [facility] Name: Bryn Richards Age: 83 yrs Sex: Male : 1935 Arrival Date: 12/31/2018 Time: 09:31 Bed 14 Private MD: Fazal Lentz E ED Physician Harvey Cruz HPI: 12/31 11:41 This 83 yrs old Male presents to ER via Wheelchair with complaints of Fall kb Injury. 11:41 Details of fall: The patient fell from an upright position, while standing. Onset: The kb symptoms/episode began/occurred this morning. Associated injuries: The patient sustained injury to the head. Severity of symptoms: At their worst the symptoms were moderate, in the emergency department the symptoms are unchanged. The patient has not experienced similar symptoms in the past. The patient has not recently seen a physician. Daughter states pt fell at [employer] [facility] [employer]. Pt is on blood thinners so they came to make sure everything was ok. States pt has had his pain medication changed up this week and has been more tired than normal so she wanted to get that checked out as well. Historical: - Allergies: 09:54 Amiodarone; tw2 09:54 Demerol; tw2 09:54 Multaq; tw2 09:54 PENICILLINS; tw2 09:54 Prednisone; tw2 - PMHx: 09:54 "internal bleeding"; Atrial Fib; Diabetes - NIDDM; Hyperlipidemia; Hypertension; tw2 - PSHx: 09:54 Heart stents; back; Left elbow; Prostate CA; left ankle; right ankle; heart cath; tw2 - Immunization history: Last tetanus immunization: unknown. - Social history:: Smoking status: . - Ebola Screening: : Patient denies travel to an Ebola-affected area in the 21 days before illness onset. ROS: 11:39 ENT: Negative for injury, pain, and discharge, Neck: Negative for injury, pain, and kb swelling, Cardiovascular: Negative for chest pain, palpitations, and edema, Respiratory: Negative for shortness of breath, cough, wheezing, and pleuritic chest pain, Abdomen/GI: Negative for abdominal pain, nausea, vomiting, diarrhea, and constipation, Back: Negative for injury and pain, : Negative for injury, bleeding, discharge, and swelling, MS/Extremity: Negative for injury and deformity, Skin: Negative for injury, rash, and discoloration, Neuro: Negative for headache, weakness, numbness, tingling, and seizure. 11:39 Constitutional: Positive for fatigue, Negative for body aches, chills, fever, malaise, poor PO intake, weight loss. Exam: 11:39 Constitutional: This is a well developed, well nourished patient who is awake, alert, kb and in no acute distress. Head/Face: Normocephalic, atraumatic. ENT: Nares patent. No nasal discharge, no septal abnormalities noted. Tympanic membranes are normal and external auditory canals are clear. Oropharynx with no redness, swelling, or masses, exudates, or evidence of obstruction, uvula midline. Mucous membranes moist. Neck: Trachea midline, no thyromegaly or masses palpated, and no cervical lymphadenopathy. Supple, full range of motion without nuchal rigidity, or vertebral point tenderness. No Meningismus. Chest/axilla: Normal chest wall appearance and motion. Nontender with no deformity. No lesions are appreciated. Cardiovascular: Regular rate and rhythm with a normal S1 and S2. No gallops, murmurs, or rubs. Normal PMI, no JVD. No pulse deficits. Respiratory: Lungs have equal breath sounds bilaterally, clear to auscultation and percussion. No rales, rhonchi or wheezes noted. No increased work of breathing, no retractions or nasal flaring. Abdomen/GI: Soft, non-tender, with normal bowel sounds. No distension or tympany. No guarding or rebound. No evidence of tenderness throughout. Skin: Warm, dry with normal turgor. Normal color with no rashes, no lesions, and no evidence of cellulitis. MS/ Extremity: Pulses equal, no cyanosis. Neurovascular intact. Full, normal range of motion. Neuro: Awake and alert, GCS 15, oriented to person, place, time, and situation. Cranial nerves II-XII grossly intact. Motor strength 5/5 in all extremities. Sensory grossly intact. Cerebellar exam normal. Normal gait. Vital Signs: 09:47 BP 126 / 82; Pulse 115; Resp 18; Temp 97.0(O); Pulse Ox 97% on R/A; Weight 92.53 kg; ss Height 5 ft. 9 in. (175.26 cm); Pain 3/10; 09:51 BP 123 / 80; Pulse 108; Resp 17; Pulse Ox 98% on R/A; tw2 10:45 BP 111 / 62; Pulse 84; Resp 17; Pulse Ox 95% on R/A; tw2 11:32 BP 127 / 79; Pulse 88; Resp 24; Temp 97.2(TE); Pulse Ox 93% on R/A; mh5 12:30 BP 120 / 86; Pulse 106; Resp 23; Pulse Ox 95% on R/A; tw2 13:34 BP 119 / 85; Pulse 93; Resp 17; Pulse Ox 97% on R/A; tw2 09:47 Body Mass Index 30.13 (92.53 kg, 175.26 cm) ss [place] Coma Score: 09:47 Eye Response: spontaneous(4). Verbal Response: oriented(5). Motor Response: obeys ss commands(6). Total: 15. 09:51 Eye Response: spontaneous(4). Verbal Response: oriented(5). Motor Response: obeys tw2 commands(6). Total: 15. 12:31 Eye Response: spontaneous(4). Verbal Response: oriented(5). Motor Response: obeys tw2 commands(6). Total: 15. Trauma Score (Adult): 09:47 Eye Response: spontaneous(1); Verbal Response: oriented(1); Motor Response: obeys ss commands(2); Systolic BP: > 89 mm Hg(4); Respiratory Rate: 10 to 29 per min(4); [place] Score: 15; Trauma Score: 12 09:51 Eye Response: spontaneous(1); Verbal Response: oriented(1); Motor Response: obeys tw2 commands(2); Systolic BP: > 89 mm Hg(4); Respiratory Rate: 10 to 29 per min(4); Jones Score: 15; Trauma Score: 12 12:31 Eye Response: spontaneous(1); Verbal Response: oriented(1); Motor Response: obeys tw2 commands(2); Systolic BP: > 89 mm Hg(4); Respiratory Rate: 10 to 29 per min(4); Jones Score: 15; Trauma Score: 12 MDM: 09:40 Patient medically screened. kb 11:38 Data reviewed: vital signs, nurses notes. Data interpreted: Pulse oximetry: on room air kb is 97 %. Interpretation: normal. 11:39 Counseling: I had a detailed discussion with the patient and/or guardian regarding: the kb historical points, exam findings, and any diagnostic results supporting the discharge/admit diagnosis, lab results, radiology results, the need for outpatient follow up, a family practitioner, to return to the emergency department if symptoms worsen or persist or if there are any questions or concerns that arise at home. ED course: Awaiting urinalysis. 12/31 09:46 Order name: Basic Metabolic Panel; Complete Time: 11:07 kb 12/31 09:46 Order name: CBC with Diff; Complete Time: 10:52 kb 12/31 09:46 Order name: LFT's; Complete Time: 11:07 kb 12/31 09:46 Order name: Magnesium; Complete Time: 11:07 kb 12/31 09:46 Order name: NT PRO-BNP; Complete Time: 11:07 kb 12/31 09:46 Order name: PT-INR; Complete Time: 10:52 kb 12/31 09:46 Order name: Troponin (emerg Dept Use Only); Complete Time: 11:07 kb 12/31 09:46 Order name: XRAY Chest (1 view); Complete Time: 11:24 kb 12/31 09:46 Order name: EKG; Complete Time: 09:47 kb 12/31 09:46 Order name: Cardiac monitoring; Complete Time: 10:01 kb 12/31 09:46 Order name: EKG - Nurse/Tech; Complete Time: 10:57 kb 12/31 09:46 Order name: CT Head Brain wo Cont; Complete Time: 10:23 kb 12/31 13:35 Order name: Urine Dipstick--Ancillary (enter results); Complete Time: 13:50 ms 12/31 09:46 Order name: IV Saline Lock; Complete Time: 10:57 kb 12/31 09:46 Order name: Labs collected and sent; Complete Time: 10:57 kb 12/31 09:46 Order name: O2 Per Protocol; Complete Time: 10:00 kb 12/31 09:46 Order name: O2 Sat Monitoring; Complete Time: 10:00 kb 12/31 09:46 Order name: Urine Dipstick-Ancillary (obtain specimen); Complete Time: 13:33 kb Administered Medications: 12:52 Drug: NS 0.9% 500 ml Route: IV; Rate: bolus; Site: right antecubital; tw2 13:33 Follow up: Response: No adverse reaction; IV Status: Completed infusion; IV Intake: tw2 500ml Disposition: 01/01 09:36 Co-signature as Attending Physician, Harvey Cruz MD I agree with the assessment and adriana plan of care. Disposition: 12/31/18 13:44 Discharged to Home. Impression: Fall on same level from slipping, tripping and stumbling, Malaise and fatigue. - Condition is Stable. - Discharge Instructions: Fatigue, Fall Prevention in the Home, [id number], Weakness, [id number]. - Medication Reconciliation Form, Thank You Letter, Antibiotic Education, Prescription Opioid Use form. - Follow up: Emergency Department; When: As needed; Reason: Worsening of condition. Follow up: Fazal Lentz MD; When: 2 - 3 days; Reason: Recheck today's complaints, Continuance of care, Re-evaluation by your physician. Signatures: Dispatcher [employer] EDMS Orquidea Barton, CUSTOMER SUPPLY COORDINATOR-C CUSTOMER SUPPLY COORDINATOR-Ckb Harvey Cruz MD MD cha Smirch, Shelby, PEGGY RN Debby Rodriguez RN RN tw2 Corrections: (The following items were deleted from the chart) 12/31 13:53 13:44 12/31/2018 13:44 Discharged to Home. Impression: Fall on same level from tw2 slipping, tripping and stumbling; Malaise and fatigue. Condition is Stable. Forms are Medication Reconciliation Form, Thank You Letter, Antibiotic Education, Prescription Opioid Use. Follow up: Emergency Department; When: As needed; Reason: Worsening of condition. Follow up: Fazal Lentz; When: 2 - 3 days; Reason: Recheck today's complaints, Continuance of care, Re-evaluation by your physician. kb
--- NOTE | 2018-12-31 13:45 | ER ---
Nurse's Notes [facility] Name: Bryn Richards Age: 83 yrs Sex: Male : 1935 Arrival Date: 12/31/2018 Time: 09:31 Bed 14 Private MD: Fazal Lentz E Diagnosis: Fall on same level from slipping, tripping and stumbling;Malaise and fatigue Presentation: 12/31 09:47 Presenting complaint: Patient states: Fell this morning while at [employer]. Fell onto ss buttocks then onto back hitting the back of his head. Pt denies headache, LOC, but daughter is concerned because patient is on blood thinners. Pt also c/o pain to bilateral shoulders and upper arms that have been ongoing since end of October after another fall. Care prior to arrival: None. Mechanism of Injury: Fall from standing position. Trauma event details: Injury occurred in the [facility], Injury occurred: in a public building. Injury occurred: December 31, 2018 Injury occurred at: 09:00. 09:47 Acuity: CORBY 3 ss 09:47 Method Of Arrival: Wheelchair ss 09:55 Transition of care: patient was received from another setting of care (long-term care 2 facility), [facility]. Onset of symptoms was December 31, 2018. Risk Assessment: Do you want to hurt yourself or someone else? Patient reports no desire to harm self or others. Initial Sepsis Screen: Does the patient meet any 2 criteria? No. Patient's initial sepsis screen is negative. Does the patient have a suspected source of infection? No. Patient's initial sepsis screen is negative. Trauma Activation: Not Applicable Physician: ED Physician; Name: ; Notified At: ; Arrived At: Physician: General Surgeon; Name: ; Notified At: ; Arrived At: Physician: Radiology; Name: ; Notified At: ; Arrived At: Physician: Respiratory; Name: ; Notified At: ; Arrived At: Physician: Lab; Name: ; Notified At: ; Arrived At: Historical: - Allergies: 09:54 Amiodarone; tw2 09:54 Demerol; tw2 09:54 Multaq; tw2 09:54 PENICILLINS; tw2 09:54 Prednisone; tw2 - PMHx: 09:54 "internal bleeding"; Atrial Fib; Diabetes - NIDDM; Hyperlipidemia; Hypertension; tw2 - PSHx: 09:54 Heart stents; back; Left elbow; Prostate CA; left ankle; right ankle; heart cath; tw2 - Immunization history: Last tetanus immunization: unknown. - Social history:: Smoking status: . - Ebola Screening: : Patient denies travel to an Ebola-affected area in the 21 days before illness onset. Screenin:51 Abuse screen: Denies threats or abuse. Nutritional screening: No deficits noted. tw2 Tuberculosis screening: No symptoms or risk factors identified. Fall Risk Secondary diagnosis (15 points) impaired mobility. Primary Survey: 09:44 NO uncontrolled hemorrhage observed. A: The patient is alert. Airway: patent. tw2 Breathing/Chest: Respiratory pattern: regular, Respiratory effort: spontaneous, unlabored, Breath sounds: clear, bilaterally. Chest inspection: symmetrical rise and fall of the chest. Circulation: Heart tones present. Disability Alert. Exposure/Environment: All clothing and personal items were removed. Forensic evidence collection is not deemed to be indicated at this time. Items placed in patient belonging bag. There is no evidence of uncontrolled external bleeding. A warming method has been applied: A warm blanket has been provided to the patient. 13:52 Reassessment Airway Airway Patent Breathing/Chest Respiratory pattern Regular tw2 Respiratory effort Spontaneous Unlabored Circulation Heart tones Present Pulses Disability Alert. Secondary Survey: 09:45 HEENT: Eyes: Other pt wears glasses. Gastrointestinal: Abdomen is soft, Bowel sounds tw2 present in all quadrants. : No signs and/or symptoms were reported regarding the genitourinary system. Musculoskeletal: Circulation, motion, and sensation intact. Assessment: 09:50 General: Appears in no apparent distress. Behavior is calm, cooperative, appropriate tw2 for age. Pain: Complains of pain in head back and right shoulder. Neuro: Level of Consciousness is awake, alert, obeys commands, Oriented to person, place, time, situation. EENT: No signs and/or symptoms were reported regarding the EENT system. Cardiovascular: Heart tones S1 S2 Patient's skin is warm and dry. Respiratory: Airway is patent Respiratory effort is even, unlabored, Respiratory pattern is regular, symmetrical, Breath sounds are clear bilaterally. GI: No signs and/or symptoms were reported involving the gastrointestinal system. Abdomen is round non-distended, Bowel sounds present X 4 quads. : No signs and/or symptoms were reported regarding the genitourinary system. Derm: Skin is fragile, is thin, Skin is dry, Skin is pale, Skin temperature is warm. Musculoskeletal: Range of motion: limited in right shoulder. 11:38 Reassessment: Patient appears in no apparent distress at this time. No changes from tw2 previously documented assessment. Patient and/or family updated on plan of care and expected duration. Pain level reassessed. Patient is alert, oriented x 3, equal unlabored respirations, skin warm/dry/pink. 12:31 Reassessment: Patient appears in no apparent distress at this time. No changes from tw2 previously documented assessment. Patient and/or family updated on plan of care and expected duration. Pain level reassessed. Patient is alert, oriented x 3, equal unlabored respirations, skin warm/dry/pink. 13:34 Reassessment: Patient appears in no apparent distress at this time. No changes from tw2 previously documented assessment. Patient and/or family updated on plan of care and expected duration. Pain level reassessed. Patient is alert, oriented x 3, equal unlabored respirations, skin warm/dry/pink. Vital Signs: 09:47 BP 126 / 82; Pulse 115; Resp 18; Temp 97.0(O); Pulse Ox 97% on R/A; Weight 92.53 kg; ss Height 5 ft. 9 in. (175.26 cm); Pain 3/10; 09:51 BP 123 / 80; Pulse 108; Resp 17; Pulse Ox 98% on R/A; tw2 10:45 BP 111 / 62; Pulse 84; Resp 17; Pulse Ox 95% on R/A; tw2 11:32 BP 127 / 79; Pulse 88; Resp 24; Temp 97.2(TE); Pulse Ox 93% on R/A; mh5 12:30 BP 120 / 86; Pulse 106; Resp 23; Pulse Ox 95% on R/A; tw2 13:34 BP 119 / 85; Pulse 93; Resp 17; Pulse Ox 97% on R/A; tw2 09:47 Body Mass Index 30.13 (92.53 kg, 175.26 cm) [place] Coma Score: 09:47 Eye Response: spontaneous(4). Verbal Response: oriented(5). Motor Response: obeys ss commands(6). Total: 15. 09:51 Eye Response: spontaneous(4). Verbal Response: oriented(5). Motor Response: obeys tw2 commands(6). Total: 15. 12:31 Eye Response: spontaneous(4). Verbal Response: oriented(5). Motor Response: obeys tw2 commands(6). Total: 15. Trauma Score (Adult): 09:47 Eye Response: spontaneous(1); Verbal Response: oriented(1); Motor Response: obeys ss commands(2); Systolic BP: > 89 mm Hg(4); Respiratory Rate: 10 to 29 per min(4); [place] Score: 15; Trauma Score: 12 09:51 Eye Response: spontaneous(1); Verbal Response: oriented(1); Motor Response: obeys tw2 commands(2); Systolic BP: > 89 mm Hg(4); Respiratory Rate: 10 to 29 per min(4); [place] Score: 15; Trauma Score: 12 12:31 Eye Response: spontaneous(1); Verbal Response: oriented(1); Motor Response: obeys tw2 commands(2); Systolic BP: > 89 mm Hg(4); Respiratory Rate: 10 to 29 per min(4); [place] Score: 15; Trauma Score: 12 ED Course: 09:31 Patient arrived in ED. as 09:31 Fazal Lentz MD is Private Physician. as 09:39 Debby Rodriguez RN is Primary Nurse. tw2 09:39 [facility]qu[facility] Barton [facility]C [facility]. kb 09:39 Harvey Cruz MD is Attending Physician. kb 09:47 Patient has correct armband on for positive identification. Placed in gown. Bed in low ss position. Call light in reach. Side rails up X 1. Adult w/ patient. 09:47 Patient maintains SpO2 saturation greater than 95% on room air. ss 09:51 Triage completed. ss 09:52 Patient maintains SpO2 saturation greater than 95% on room air. tw2 09:55 Arm band placed on. tw2 09:55 Thermoregulation: warm blanket given to patient. tw2 10:08 CT completed. Patient moved back from CT. Patient moved to radiology. kw1 10:10 CT Head Brain wo Cont In Process Unspecified. EDMS 10:18 CT completed. Patient tolerated procedure well. Patient moved to radiology. kw1 10:45 Inserted saline lock: 22 gauge in right antecubital area, using aseptic technique. tw2 Blood collected. 10:50 XRAY Chest (1 view) In Process Unspecified. EDMS 11:08 EKG done, by ED staff, reviewed by Havrey Cruz MD. [facility] 13:44 Fazal Lentz MD is Referral Physician. kb 13:52 No provider procedures requiring assistance completed. IV discontinued, intact, tw2 bleeding controlled, No redness/swelling at site. Pressure dressing applied. Administered Medications: 12:52 Drug: NS 0.9% 500 ml Route: IV; Rate: bolus; Site: right antecubital; tw2 13:33 Follow up: Response: No adverse reaction; IV Status: Completed infusion; IV Intake: tw2 500ml Intake: 11:38 PO: 0ml; Total: 0ml. tw2 13:33 IV: 500ml; Total: 500ml. tw2 Outcome: 13:44 Discharge ordered by MD. kb 13:53 Discharged to home via wheelchair, with family. tw2 13:53 Condition: stable 13:53 Discharge instructions given to patient, family, Instructed on discharge instructions, follow up and referral plans. Demonstrated understanding of instructions, follow-up care. 13:53 Patient's length of stay in the Emergency Department was greater than 2 hours. d/t pt tw2 inability to produce urine sample for testing.Patient's length of stay extended due to 13:53 Patient left the ED. tw2 Signatures: Dispatcher [employer] EDIL Orquidea Barton, DALTON CASTRO-Susan Bullard Shelby, RN RN Debby Rodriguez RN RN 2 Yola Lyle Pina Ceja [facility]
[2018-12-31 13:49] LABS: Urine Blood NEGATIVE (NEG); Urine Glucose NEGATIVE (NEG); Urine Protein TRACE (NEG)
[2018-12-31 14:06] VITALS: TEMP 97.2
[2018-12-31 14:08] VITALS: BP 119/85; O2SAT 97
--- NOTE | 2019-01-01 08:39 | EKG ---
Test Date: 2018-12-31 Test Time: 09:29:53 Event Planning Intern: HAY MEASUREMENT RESULTS: Intervals: Rate: 105 [place]: QRSD: 96 QT: 326 QTc: 430 [place]: P: [place]: QRS: 21 T: 76 INTERPRETIVE STATEMENTS: Atrial fibrillation with rapid ventricular response Cannot rule out Anterior infarct, age undetermined Abnormal ECG Compared to ECG 11/20/2018 13:07:24 Myocardial infarct finding now present Electronically Signed On 01-01-19 08:38:52 CDT by Wilber Awan
== END 2018-12-31 13:53 | disposition home or self-care (01) ==
LOC: ER 09:29
DX: R53.81 Other malaise (principal); R53.83 Other fatigue; W01.0XXA Fall on same level from slipping, tripping and stumbling without subsequent striking against object, initial encounter; Y93.9 Activity, unspecified; Y92.22 Religious institution as the place of occurrence of the external cause; Z79.01 Long term (current) use of anticoagulants; Z88.0 Allergy status to penicillin; Z88.5 Allergy status to narcotic agent; Z88.8 Allergy status to other drugs, medicaments and biological substances; Z95.818 Presence of other cardiac implants and grafts; Z85.46 Personal history of malignant neoplasm of prostate; I10 Essential (primary) hypertension
CPT/HCPCS: 36415; 70450; 71045; 80048; 80076; 81003; 83735; 83880; 84484; 85025; 85610; 93005; 96360; 99285

== ENCOUNTER 2021-04-16 11:27 | Inpatient (IN) | payer MEDICARE, OTHER ==
[2021-04-16] MEDS ORDERED: METOPROLOL TARTRATE 5 MG/5 ML INJ IV ONE ×3 (14:24→19:34)
[2021-04-16 15:35] LABS: Urine Blood 2+ (Negative); Urine Glucose 2+ (Negative); Urine Protein Trace (Negative); Urine Specific Gravity 1.025 (1.005-1.030)
[2021-04-16 17:05] LABS: Absolute Lymphocytes (CBC) 1.2 K/uL (0.7-4.9); Basophils % 0.4 % (0-1.3); Hematocrit 43.6 % (39.6-49.0); Lymphocytes % 8.6 % (15.3-44.8); MPV 7.2 fL (7.6-11.3); RBC Red Blood Cell Count 4.95 M/uL (4.33-5.43)
[2021-04-16 17:19] LABS: Potassium 4.5 mmol/L (3.5-5.1); Troponin (Emerg Dept Use Only) 0.02 ng/mL (0.0-0.045)
--- NOTE | 2021-04-16 17:36 | ER ---
Nurse's Notes [facility] Name: Bryn Richards Age: 86 yrs Sex: Male : 1935 Arrival Date: 04/16/2021 Time: 11:28 Bed 19 Private MD: Diagnosis: Atrial fibrillation and flutter;Tachycardia, unspecified Presentation: 04/16 11:30 Chief complaint: EMS states: Swollen Lymphnodes. Coronavirus screen: Client denies kg travel out of the [place] in the last 14 days. At this time, unable to obtain information related to travel outside the [place] At this time, the client does not indicate any symptoms associated with coronavirus-19. Ebola Screen: Patient negative for fever greater than or equal to 101.5 degrees Fahrenheit, and additional compatible Ebola Virus Disease symptoms Patient denies exposure to infectious person. Patient denies travel to an Ebola-affected area in the 21 days before illness onset. Initial Sepsis Screen: Does the patient meet any 2 criteria? HR > 90 bpm. Does the patient have a suspected source of infection? No. Patient's initial sepsis screen is negative. Risk Assessment: Do you want to hurt yourself or someone else? Patient reports no desire to harm self or others. Onset of symptoms was April 16, 2021. 11:30 Method Of Arrival: EMS: [facility] kg 11:30 Acuity: CORBY 3 kg - Immunization history:: Adult Immunizations not up to date, Client reports receiving the 2nd dose of the Covid vaccine. - Social history:: Smoking status: Patient denies any tobacco usage or history of. - Family history:: not pertinent. Screenin:44 Abuse screen: Denies threats or abuse. Denies injuries from another. Nutritional kg screening: No deficits noted. Tuberculosis screening: No symptoms or risk factors identified. Fall Risk None identified. No secondary diagnosis (0 pts). IV access (20 points). Ambulatory Aid- None/Bed Rest/Nurse Assist (0 pts). Gait- Weak (10 pts.). Mental Status- Oriented to own ability (0 pts). Total Palumbo Fall Scale indicates Low Risk Score (25-44 pts). Fall prevention measures have been instituted. Side Rails Up X 2 Placed close to Nursing Station Frequent Obs/Assesments occuring As available Patient and Family Educated on Fall Prevention Program and strategies. Assessment: 11:37 General: Appears in no apparent distress. Behavior is calm, cooperative, appropriate kg for age, quiet. Pain: Denies pain. Neuro: No deficits noted. Level of Consciousness is awake, alert, obeys commands, Oriented to person, place, time, situation, Appropriate for age. Cardiovascular: Heart tones S1 S2 Capillary refill < 3 seconds Pulses are 3+ in right radial artery and left radial artery Rhythm is sinus tachycardia. Respiratory: No deficits noted. 12:52 Reassessment: Pt stated that he lives at [facility]. . kg Vital Signs: 11:30 BP 132 / 73; Pulse 92; Resp 20; Temp 98.2(O); Pulse Ox 95% on R/A; kg 11:35 BP 112 / 70; Pulse 95; Resp 20; Pulse Ox 94% on R/A; kg 11:45 BP 99 / 70; Pulse 112; Resp 20; Pulse Ox 94% ; kg 12:00 BP 112 / 61; Pulse 94; Resp 20; Pulse Ox 95% on R/A; kg 12:15 BP 113 / 63; Pulse 102; Resp 20; Pulse Ox 95% on R/A; kg 12:30 BP 136 / 74; Pulse 106; Resp 20; Pulse Ox 93% on R/A; kg 13:00 BP 127 / 101; Pulse 108; Resp 20; Pulse Ox 95% on R/A; kg 13:30 BP 152 / 93; Pulse 100; Resp 20; Pulse Ox 96% on R/A; kg 13:45 BP 123 / 66; Pulse 93; Resp 20; Pulse Ox 96% on R/A; kg 14:00 BP 133 / 79; Pulse 95; Resp 20; Pulse Ox 97% ; kg 14:15 BP 120 / 82; Pulse 87; Resp 20; Pulse Ox 97% on R/A; kg 14:30 BP 127 / 72; Pulse 87; Resp 20; Pulse Ox 97% on R/A; kg 14:45 BP 128 / 84; Pulse 108; Resp 17; Pulse Ox 95% on R/A; kg 15:30 BP 144 / 78; Pulse 99; Resp 20; Pulse Ox 96% on R/A; kg 16:00 BP 139 / 76; Pulse 93; Resp 20; Pulse Ox 96% on R/A; kg 16:30 BP 155 / 76; Pulse 85; Resp 20; Pulse Ox 96% on R/A; kg 17:05 BP 147 / 91; Pulse 85; Resp 20; Pulse Ox 98% ; kg 17:30 BP 137 / 95; Pulse 81; Resp 20; Pulse Ox 96% on R/A; kg 18:30 BP 149 / 84; Pulse 95; Resp 20; Pulse Ox 96% on R/A; kg 19:25 BP 135 / 99; Pulse 91; Resp 20; Pulse Ox 97% on R/A; kg Vitals: 12:37 Cardiac Rhythm Assessment Atrial fibrillation W/rapid ventricular response. kg ED Course: 11:28 Patient arrived in ED. ds1 11:30 Ora Paz, PEGGY is Primary Nurse. kg 11:37 Triage completed. kg 11:38 Shravan Lutz MD is Attending Physician. ma2 11:42 Patient has correct armband on for positive identification. Placed in gown. Bed in low mh5 position. Call light in reach. Side rails up X2. Warm blanket given. change person on. Pulse ox on. NIBP on. 12:02 Troponin I Sent. mh5 12:02 Troponin I Sent. mh5 12:02 Basic Metabolic Panel Sent. mh5 12:02 Basic Metabolic Panel Sent. 5 12:02 CBC with Automated Diff Sent. mh5 12:03 CBC with Automated Diff Sent. 5 12:03 Initial lab(s) drawn, by ut, sent to lab. mh5 12:36 Inserted saline lock: 20 gauge in right antecubital area, using aseptic technique. kg 17:30 Chest Single View In Process Unspecified. EDMS 17:35 Lane Caldera DO is Hospitalizing Provider. ma2 19:52 Report given to Yadira WOODS. kg 20:02 No provider procedures requiring assistance completed. Converted IV to saline lock on kg right antecubital area. Administered Medications: 14:06 Drug: Metoprolol 5 mg Route: IVP; Site: right antecubital; kg 16:30 Drug: Metoprolol 5 mg Route: IVP; Site: right antecubital; kg 19:03 Drug: Metoprolol 5 mg Route: IVP; Site: right antecubital; kg 20:05 Follow up: Response: No adverse reaction; No change in condition kg Outcome: 17:35 Decision to Hospitalize by Provider. ma2 20:02 Admitted to Med/surg accompanied by nurse, via stretcher, room 216, Report called to ely May RN Med Surg 20:03 Condition: stable kg 20:03 Instructed on the need for admit, Demonstrated understanding of instructions. 20:06 Patient left the ED. ely Signatures: Dispatcher [employer] Luisa Soto [facility] Shravan Lutz MD MD ma2 Ora Paz RN RN ely
--- NOTE | 2021-04-16 17:36 | EDPHYS ---
Physician Documentation [facility] Name: Bryn Richards Age: 86 yrs Sex: Male : 1935 Arrival Date: 04/16/2021 Time: 11:28 Bed 19 Private MD: ED Physician Shravan Lutz HPI: 04/16 14:48 This 86 yrs old Male presents to ER via EMS with complaints of shortness of ma2 breath . 14:48 Onset: The symptoms/episode began/occurred gradually, 1 day(s) ago. Associated signs ma2 and symptoms: Pertinent negatives: productive cough, dizziness, hemoptysis. Severity of symptoms: At their worst the symptoms were mild in the emergency department the symptoms are unchanged. The patient has not experienced similar symptoms in the past. - Immunization history:: Adult Immunizations not up to date, Client reports receiving the 2nd dose of the Covid vaccine. - Social history:: Smoking status: Patient denies any tobacco usage or history of. - Family history:: not pertinent. ROS: 14:48 Constitutional: Negative for fever, chills, and weight loss. ma2 14:48 All other systems are negative. Exam: 14:48 Constitutional: This is a well developed, well nourished patient who is awake, alert, ma2 and in no acute distress. Chest/axilla: Normal chest wall appearance and motion. Nontender with no deformity. No lesions are appreciated. Cardiovascular: tachycardia and irregular rhythm with a normal S1 and S2. No gallops, murmurs, or rubs. Normal PMI, no JVD. No pulse deficits. Respiratory: Lungs have equal breath sounds bilaterally, clear to auscultation and percussion. No rales, rhonchi or wheezes noted. No increased work of breathing, no retractions or nasal flaring. Abdomen/GI: Soft, non-tender, with normal bowel sounds. No distension or tympany. No guarding or rebound. No evidence of tenderness throughout. MS/ Extremity: Pulses equal, no cyanosis. Neurovascular intact. Full, normal range of motion. Neuro: Awake and alert, GCS 15, oriented to person, place, time, and situation. Cranial nerves II-XII grossly intact. Motor strength 5/5 in all extremities. Sensory grossly intact. Cerebellar exam normal. Normal gait. Vital Signs: 11:30 BP 132 / 73; Pulse 92; Resp 20; Temp 98.2(O); Pulse Ox 95% on R/A; kg 11:35 BP 112 / 70; Pulse 95; Resp 20; Pulse Ox 94% on R/A; kg 11:45 BP 99 / 70; Pulse 112; Resp 20; Pulse Ox 94% ; kg 12:00 BP 112 / 61; Pulse 94; Resp 20; Pulse Ox 95% on R/A; kg 12:15 BP 113 / 63; Pulse 102; Resp 20; Pulse Ox 95% on R/A; kg 12:30 BP 136 / 74; Pulse 106; Resp 20; Pulse Ox 93% on R/A; kg 13:00 BP 127 / 101; Pulse 108; Resp 20; Pulse Ox 95% on R/A; kg 13:30 BP 152 / 93; Pulse 100; Resp 20; Pulse Ox 96% on R/A; kg 13:45 BP 123 / 66; Pulse 93; Resp 20; Pulse Ox 96% on R/A; kg 14:00 BP 133 / 79; Pulse 95; Resp 20; Pulse Ox 97% ; kg 14:15 BP 120 / 82; Pulse 87; Resp 20; Pulse Ox 97% on R/A; kg 14:30 BP 127 / 72; Pulse 87; Resp 20; Pulse Ox 97% on R/A; kg 14:45 BP 128 / 84; Pulse 108; Resp 17; Pulse Ox 95% on R/A; kg 15:30 BP 144 / 78; Pulse 99; Resp 20; Pulse Ox 96% on R/A; kg 16:00 BP 139 / 76; Pulse 93; Resp 20; Pulse Ox 96% on R/A; kg 16:30 BP 155 / 76; Pulse 85; Resp 20; Pulse Ox 96% on R/A; kg 17:05 BP 147 / 91; Pulse 85; Resp 20; Pulse Ox 98% ; kg 17:30 BP 137 / 95; Pulse 81; Resp 20; Pulse Ox 96% on R/A; kg 18:30 BP 149 / 84; Pulse 95; Resp 20; Pulse Ox 96% on R/A; kg 19:25 BP 135 / 99; Pulse 91; Resp 20; Pulse Ox 97% on R/A; kg MDM: 11:38 Patient medically screened. ma2 14:48 Differential diagnosis: Anemia Bronchitis pneumonia, pulmonary edema, Pulmonary ma2 Embolism reactive airway disease. 17:34 Data reviewed: vital signs, nurses notes. Counseling: I had a detailed discussion with ma2 the patient and/or guardian regarding: the historical points, exam findings, and any diagnostic results supporting the discharge/admit diagnosis, the presence of at least one elevated blood pressure reading (>120/80) during this emergency department visit, the need for outpatient follow up, the need for further work-up and treatment in the hospital. 04/16 11:42 Order name: Basic Metabolic Panel EDMT 04/16 11:42 Order name: Basic Metabolic Panel EDMT 04/16 11:42 Order name: CBC with Automated Diff EDMT 04/16 11:42 Order name: CBC with Automated Diff [facility] 04/16 11:42 Order name: Troponin I [facility] 04/16 11:42 Order name: Troponin I; Complete Time: 16:47 EDMT 04/16 11:42 Order name: Chest Single View [facility] 04/16 15:35 Order name: Urine Dipstick-Ancillary; Complete Time: 15:54 EDMT 04/16 16:08 Order name: Basic Metabolic Panel; Complete Time: 17:30 EDMT 04/16 16:08 Order name: CBC with Automated Diff; Complete Time: 17:30 EDMT 04/16 16:08 Order name: Troponin (Emerg Dept Use Only); Complete Time: 17:30 [facility] 04/16 18:23 Order name: SARS-COV-2 RT PCR; Complete Time: 18:39 EDMT 04/16 11:42 Order name: EKG Electrocardiogram; Complete Time: 11:50 EDMT 04/16 11:42 Order name: EKG Electrocardiogram; Complete Time: 11:43 EDMT 04/16 11:42 Order name: EKG Electrocardiogram; Complete Time: 11:49 EDMT 04/16 11:42 Order name: EKG Electrocardiogram; Complete Time: 11:49 EDMT 04/16 11:42 Order name: Chest Single View EDMT 04/16 16:08 Order name: Chest Single View EDMT Administered Medications: 14:06 Drug: Metoprolol 5 mg Route: IVP; Site: right antecubital; kg 16:30 Drug: Metoprolol 5 mg Route: IVP; Site: right antecubital; kg 19:03 Drug: Metoprolol 5 mg Route: IVP; Site: right antecubital; kg 20:05 Follow up: Response: No adverse reaction; No change in condition kg Disposition: 04/16/21 17:[address] Caldera for Observation. Preliminary diagnosis are Atrial fibrillation and flutter, Tachycardia, unspecified. - Bed requested for Telemetry/MedSurg (observation). - Status is Observation. kg - Condition is Stable. - Problem is new. - Symptoms are unchanged. Signatures: Dispatcher [employer] EDMT Syl Brock RN RN ss Bryn Zelaya, CAN LINE EXAMINER-C CAN LINE EXAMINER-Cla1 Shravan Lutz MD MD ma2 Ora Paz RN RN kg Corrections: (The following items were deleted from the chart) 17:26 15:33 CORONAVIRUS+MR.LAB.BRZ ordered. EDMT EDMT 17:28 11:42 Troponin I ordered. [facility] EDMT 19:13 17:[address] Caldera DO for Observation. Preliminary ss diagnosis is Atrial fibrillation and flutter; Tachycardia, unspecified. Bed requested for Telemetry/MedSurg (observation). Status is Observation. Condition is Stable. Problem is new. Symptoms are unchanged. ma2 20:06 19:13 04/16/2021 17:[address] Caldera DO for Observation. kg Preliminary diagnosis is Atrial fibrillation and flutter; Tachycardia, unspecified. Bed requested for Telemetry/MedSurg (observation). Status is Observation. Condition is Stable. Problem is new. Symptoms are unchanged. ss
--- NOTE | 2021-04-16 17:45 | P.HP ---
Certification for Inpatient Patient admitted to: Observation With expected LOS: <2 Midnights Patient will require the following post-hospital care: None Practitioner: I am a practitioner with admitting privileges, knowledge of patient current condition, hospital course, and medical plan of care. Services: Services provided to patient in accordance with Admission requirements found in Title 42 Section 412.3 of the Code of Federal Regulations Patient History Date of Service: 04/16/21 Primary Care Provider: [facility] Reason for admission: Confusion History of Present Illness: 86-year-old male with history of atrial fibrillation on chronic anti coagulation therapy, CAD, hypertension, diabetes and chronic renal disease. Patient comes from assisted living facility. Patient was sent over for confusion and enlarged lymph nodes. 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 This was done early March. Since March 30 this blood sugars have been not well controlled. Patient also has been incontinent. Patient does not use adult di apers. No reports of fever, chills. Patient denies any fever, chills, chest pain or shortness of breath. Patient was sent over to the ER for further evaluation. Patient was evaluated. Urinalysis unremarkable. White count 13, hemoglobin 13. BUN of 50, creatinine 1.9 with a GFR 34. Glucose 324. Patient had atrial fibrillation with RVR. Rate was around 120s to 250s. Patient given metoprolol IV with improvement. Rate around 80-100. Patient was admitted for observation. Allergies amiodarone Allergy (Severe, Verified 11/20/18 17:39) Anaphylaxis Penicillins Allergy (Severe, Verified 11/20/18 17:39) Anaphylaxis dronedarone [From Multaq] Allergy (Intermediate, Verified 11/20/18 17:39) Hives/Rash prednisone Adverse Reaction (Mild, Verified 11/20/18 17:39) "tired and weak" Home medications list reviewed: Yes Home Medications: Calcium Carbonate [Calcium] 600 mg PO DAILY 01/28/18 Cyanocobalamin [Vitamin B-12*] 500 mcg PO DAILY 01/28/18 Gabapentin [Gralise] 300 mg PO BID PRN 01/28/18 Metoprolol Succinate [Toprol Xl*] 25 mg PO BEDTIME 01/28/18 Pravastatin Sodium 40 mg PO BEDTIME 01/28/18 Sitagliptin Phosphate [Januvia*] 100 mg PO DAILY 01/28/18 Tamsulosin [Flomax*] 0.4 mg PO DAILY 01/28/18 Esomeprazole Mag Trihydrate [Nexium] 40 mg PO DAILY 11/20/18 Glipizide [Glipizide Xl] 5 mg PO BID 11/20/18 Iron 27 mg PO DAILY 11/20/18 Ranolazine [Ranexa] 500 mg PO BID 11/20/18 Rivaroxaban [Xarelto*] 15 mg PO BEDTIME 11/20/18 - Past Medical/Surgical History Diabetic: Yes -: Diabetes mellitus type 2 -: CAD -: History of prostate cancer -: Atrial fibrillation on chronic anti coagulation therapy -: Hyperlipidemia -: Chronic renal disease stage III -: left elbow surgery -: COLONOSCOPY Psychosocial/ Personal History: Patient lives at assisted living facility - Family History Mother -: Diabetes - Social History Smoking Status: Unknown if ever smoked Alcohol use: No CD- Drugs: No Caffeine use: No Place of Residence: [place] Term Review of Systems General: As per HPI Eyes: Unremarkable ENT: Unremarkable Respiratory: Unremarkable Cardiovascular: As per HPI Gastrointestinal: Unremarkable Genitourinary: Incontinence, As per HPI Musculoskeletal: Unremarkable Integumentary: Unremarkable Neurological: Unremarkable Lymphatics: Unremarkable Physical Examination - Physical Exam General: Alert, In no apparent distress, Oriented x3, Cooperative HEENT: Atraumatic, Normocephalic, Mucous membr. moist/pink Neck: Supple Respiratory: Clear to auscultation bilaterally, Normal air movement Cardiovascular: Irregular heart rate/rhythm (AFib rate around 80-110) Gastrointestinal: Normal bowel sounds, No ascites, No tenderness, No masses, No rebound, No guarding Musculoskeletal: No erythema, No tenderness, No warmth Integumentary: No tenderness/swelling, No erythema, No warmth, No cyanosis Neurological: Normal speech, Normal strength at 5/5 x4 extr, Normal tone, Normal affect External genitalia: Other (Mild erythema to the inguinal region. Erythema to the scrotum) - Studies Laboratory Data (last 24 hrs) 04/16/21 16:10: Sodium 138, Potassium 4.5, BUN 50 H, Creatinine 1.90 H, Glucose 321 H 04/16/21 16:10: WBC 13.90 H, Hgb 13.9, Hct 43.6, Plt Count 276 04/16/21 15:35: Troponin I < 0.02 04/16/21 11:57: Troponin I Cancelled Assessment and Plan - Plan Impression: Atrial fibrillation with RVR on chronic anti coagulation therapy Hypertension CAD Hyperlipidemia Chronic renal disease stage III Diabetes mellitus type 2 with hyperglycemia Groin yeast infection Plan: Atrial fibrillation with RVR on chronic anti coagulation therapy: Patient will be admitted for further evaluation observation. Cardiology consulted. Will increase metoprolol to 50 mg 1 pill twice daily. Continue Xarelto. Will continue monitor closely Overnite. Anticipate improvement over the next 24 hr with likely discharge tomorrow. Hypertension: Increase metoprolol as above CAD: Obtain and restart home medication Hyperlipidemia: Obtain and restart home medication Chronic renal disease stage III : Will monitor closely. Overall stable. Diabetes mellitus type 2 with hyperglycemia: Will check A1c. Accu-Cheks in place. Will need to verify home medications. Adjustments in medication may be required. Groin yeast infection: Recommend adult brief with frequent changes. Provide nystatin. DVT prophylaxis: Patient on Xarelto Code status: To be verified by family Advanced care planning-30 min: Patient to return back to assisted living facility. Discharge Plan: Other (Assisted living facility) Plan to discharge in: 24 Hours - Advance Directives Does patient have a Living Will: Yes Does patient have a Durable POA for Healthcare: Yes Time Spent Managing Pts Care (In Minutes): 55
--- NOTE | 2021-04-16 18:47 | RAD REPORT ---
EXAM DESCRIPTION: RAD - Chest Single View - 04/16/2021 5:31 pm CLINICAL HISTORY: ams COMPARISON: Portable December 2018 TECHNIQUE: AP portable chest image was obtained 04/16/2021 5:31 pm . FINDINGS: Lung volumes are very low. This accentuates baseline interstitial pattern and limits left base. Significant failure or volume overload are doubtful. No convincing evidence for focal infiltrat e. Heart and vasculature are normal. No measurable pleural effusion and no pneumothorax. No acute bon y abnormality seen. No acute aortic findings suspected. IMPRESSION: Limited portable study without acute cardiopulmonary finding.
[2021-04-16] MEDS ORDERED: ONDANSETRON 4 MG/2 ML VIAL IV PRN (20:53)
[2021-04-16] MEDS ORDERED: ACETAMINOPHEN 500 MG TAB PO PRN (20:53)
[2021-04-16] MEDS ORDERED: METOPROLOL TARTRATE 5 MG/5 ML INJ IV PRN (20:53)
[2021-04-16] MEDS: NYSTATIN PWDR 100000 UNIT/GM TOP SCH (21:00)
[2021-04-16 21:52] LABS: CKMB Creatine Kinase MB 8.2 ng/mL (1.0-3.6); Troponin I < 0.02 ng/mL (0.0-0.045)
[2021-04-16] MEDS: METOPROLOL TAR 50 MG TAB PO SCH (22:04)
[2021-04-16 22:06] LABS: Creatine Phosphokinase 1587 U/L (39-308)
[2021-04-16] MEDS: INSULIN -REGULAR HUMAN 50 UNIT/0.5 ML ML SQ SCH (22:15)
[2021-04-17 05:45] LABS: Absolute Lymphocytes (CBC) 1.9 K/uL (0.7-4.9); Basophils % 0.4 % (0-1.3); Hematocrit 43.2 % (39.6-49.0); Lymphocytes % 15.8 % (15.3-44.8); RBC Red Blood Cell Count 4.96 M/uL (4.33-5.43)
--- NOTE | 2021-04-17 06:07 | P.DS ---
Admission Date: 04/16/21 Discharge Date: 04/17/21 Primary Care Provider: [facility] Disposition: TRANSFER TO CUSTODIAL Discharge Condition: GOOD Reason for Admission: Confusion Consultations: Cardiology-Dr. Joe Procedures: Medical Problem List: Atrial fibrillation with RVR on chronic anti coagulation therapy Hypertension CAD Hyperlipidemia Chronic renal disease stage III Diabetes mellitus type 2 with hyperglycemia Groin/inguinal yeast infection BPH GERD Brief History of Present Illness: 86-year-old male with history of atrial fibrillation on chronic anti coagulation therapy, CAD, hypertension, diabetes and chronic renal disease. Patient comes from assisted living facility. Patient was sent over for confusion and enlarged lymph nodes. 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 This was done early March. Since March 30 this blood sugars have been not well controlled. Patient also has been incontinent. Patient does not use adult diapers. No reports of fever, chills. Patient denies any fever, chills, chest pain or shortness of breath. Patient was sent over to the ER for further evaluation. Patient was evaluated. Urinalysis unremarkable. White count 13, hemoglobin 13. BUN of 50, creatinine 1.9 with a GFR 34. Glucose 324. Patient had atrial fibrillation with RVR. Rate was around 120s to 250s. Patient given metoprolol IV with improvement. Rate around 80-100. Patient was admitted for observation. Hospital Course: Patient presented with atrial fibrillation with RVR. Patient on chronic anticoagulation therapy. Patient also takes metoprolol 25 mg daily. Patient was treated in the emergency room. Patient was admitted for further evaluation and treatment. Increased dose of metoprolol was required. Patient was seen and evaluated by cardiology. No further intervention required. Patient in atrial fibrillation with rate controlled on higher dose of metoprolol. At discharge the patient will continue with metoprolol 50 mg 1 pill twice daily and Xarelto 15 mg at bedtime. Recommend to follow-up with cardiology in 1 to 2 weeks to follow-up this hospitalization. Patient with hypertension. As mentioned above metoprolol has been adjusted. At discharge patient will continue with metoprolol 50 mg 1 pill twice daily and losartan 50 mg daily. Recommend to maintain blood pressure less than 130/80. Further adjustment can be done at the care home. Patient with chronic renal disease. This appears stable. Mild dehydration noted. Encourage increase oral intake for at least several days. Recommend to recheck labBMP in 1 to 2 weeks to follow-up. Recommend no further use of muscle anti-inflammatories. Future medications would to be renally dosed. Patient would benefit with nephrology evaluation as an outpatient to further monitor and address. Patient with diabetes mellitus type 2 with hyperglycemia. Blood sugars have been elevated at the care home. Medications have been adjusted. Increase Lantus required. At discharge recommend to continue Lantus at 12 units subcu twice daily and glipizide 10 mg daily. Recommend to monitor blood sugar at least twice daily. Recommend to maintain blood sugar less than 140 fasting and less than 200 after meals. If blood sugars remain above 200 consistently then Lantus can be further adjusted. This can be done with the help of the care home physician. If blood sugars less than 100 then patient will need to hold glipizide and adjustment in Lantus may be required. Recommend to recheck hemoglobin A1c in 3 months to monitor his progress. Further adjustment in medication can be done by the care home physician. Patient with GERD. At discharge patient will continue with Nexium 40 mg daily. Patient with diabetic neuropathy. At discharge patient will continue with gabapentin 300 mg 1 pill twice daily. Patient with BPH. At discharge patient will continue with Flomax 0.4 mg daily and Proscar 5 mg daily. Patient with hyperlipidemia. At discharge patient will continue with pravastatin 40 mg daily. Patient with incontinence and yeast infection to the groin and inguinal region. Recommend adult briefs with frequent changes at the care home. Needs to keep area dry. Patient will continue with nystatin powder twice daily for at least 1 week. Better control of diabetes will help with this. Patient will continue with his other medications including Caltrate twice daily, vitamin D and iron supplementation. Further work-up included negative Covid test. Chest x-ray unremarkable. Urinalysis showed no evidence of infection. Vital Signs/Physical Exam: Temp Pulse Resp BP Pulse Ox 97.6 F 96 H 19 143/77 H 93 04/17/21 00:00 04/17/21 00:00 04/17/21 00:00 04/17/21 00:00 04/17/21 00:00 General: Alert, In no apparent distress, Oriented x3, Cooperative HEENT: Atraumatic Neck: Supple Respiratory: Clear to auscultation bilaterally, Normal air movement Cardiovascular: Irregular heart rate/rhythm (Atrial fibrillation rate controlled) Gastrointestinal: Normal bowel sounds, No tenderness, No masses, No rebound, No guarding Musculoskeletal: No erythema, No tenderness, No warmth Integumentary: No tenderness/swelling Neurological: Normal speech, Normal strength at 5/5 x4 extr, Normal tone, Normal affect Laboratory Data at Discharge: WBC 12.10 K/uL (4.3-10.9) H 04/17/21 04:42 Hgb 14.0 g/dL (13.6-17.9) 04/17/21 04:42 Hct 43.2 % (39.6-49.0) 04/17/21 04:42 Plt Count 294 K/uL (152-406) 04/17/21 04:42 Sodium 138 mmol/L (136-145) 04/16/21 16:10 Potassium 4.5 mmol/L (3.5-5.1) 04/16/21 16:10 BUN 50 mg/dL (7-18) H 04/16/21 16:10 Creatinine 1.90 mg/dL (0.55-1.3) H 04/16/21 16:10 Glucose 321 mg/dL (74-106) H 04/16/21 16:10 Troponin I < 0.02 ng/mL (0.0-0.045) 04/16/21 20:57 Home Medications: Pravastatin Sodium 40 mg PO BEDTIME 01/28/18 Tamsulosin [Flomax*] 0.4 mg PO DAILY 6PM 01/28/18 Esomeprazole Mag Trihydrate [Nexium] 40 mg PO DAILY 11/20/18 Iron 27 mg PO DAILY 6PM 11/20/18 Rivaroxaban [Xarelto*] 15 mg PO DAILY 11/20/18 Calcium Carbonate/Vitamin D3 [Calcium 600-Vit D3 800 Tablet] 1 each PO BID 04/16/21 Cholecalciferol (Vitamin D3) [Vitamin D 1000 Iu Tab*] 1,000 unit PO DAILY 6PM 04/16/21 Finasteride [Proscar*] 5 mg PO DAILY 6PM 04/16/21 Gabapentin 300 mg PO BID 04/16/21 Glipizide [Glipizide ER] 10 mg PO DAILY 04/16/21 Losartan Potassium 50 mg PO DAILY 04/16/21 Insulin Glargine,Hum.rec.anlog [Lantus Solostar] 12 unit SQ BID #1 packet 04/17/21 Metoprolol Tartrate [Lopressor*] 50 mg PO BID #60 tab 04/17/21 Nystatin Powder [Mycostatin (Powder)*] 1 appl TOP BID #1 btl 04/17/21 New Medications: Insulin Glargine,Hum.rec.anlog [Lantus Solostar] 12 unit SQ BID #1 packet Metoprolol Tartrate [Lopressor*] 50 mg PO BID #60 tab Nystatin Powder [Mycostatin (Powder)*] 1 appl TOP BID #1 btl Physician Discharge Instructions: Patient presented with atrial fibrillation with RVR. Patient on chronic anticoagulation therapy. Patient also takes metoprolol 25 mg daily. Patient was treated in the emergency room. Patient was admitted for further evaluation and treatment. Increased dose of metoprolol was required. Patient was seen and evaluated by cardiology. No further intervention required. Patient in atrial fibrillation with rate controlled on higher dose of metoprolol. At discharge the patient will continue with metoprolol 50 mg 1 pill twice daily and Xarelto 15 mg at bedtime. Recommend to follow-up with cardiology in 1 to 2 weeks to follow-up this hospitalization. Patient with hypertension. As mentioned above metoprolol has been adjusted. At discharge patient will continue with metoprolol 50 mg 1 pill twice daily and losartan 50 mg daily. Recommend to maintain blood pressure less than 130/80. Further adjustment can be done at the care home. Patient with chronic renal disease. This appears stable. Mild dehydration noted. Encourage increase oral intake for at least several days. Recommend to recheck labBMP in 1 to 2 weeks to follow-up. Recommend no further use of muscle anti-inflammatories. Future medications would to be renally dosed. Patient would benefit with nephrology evaluation as an outpatient to further monitor and address. Patient with diabetes mellitus type 2 with hyperglycemia. Blood sugars have been elevated at the care home. Medications have been adjusted. Increase Lantus required. At discharge recommend to continue Lantus at 12 units subcu twice daily and glipizide 10 mg daily. Recommend to monitor blood sugar at least twice daily. Recommend to maintain blood sugar less than 140 fasting and less than 200 after meals. If blood sugars remain above 200 consistently then Lantus can be further adjusted. This can be done with the help of the care home physician. If blood sugars less than 100 then patient will need to hold glipizide and adjustment in Lantus may be required. Recommend to recheck hemoglobin A1c in 3 months to monitor his progress. Further adjustment in medication can be done by the care home physician. Patient with GERD. At discharge patient will continue with Nexium 40 mg daily. Patient with diabetic neuropathy. At discharge patient will continue with gabapentin 300 mg 1 pill twice daily. Patient with BPH. At discharge patient will continue with Flomax 0.4 mg daily and Proscar 5 mg daily. Patient with hyperlipidemia. At discharge patient will continue with prav astatin 40 mg daily. Patient with incontinence and yeast infection to the groin and inguinal region. Recommend adult briefs with frequent changes at the care home. Needs to keep area dry. Patient will continue with nystatin powder twice daily for at least 1 week. Better control of diabetes will help with this. Patient will continue with his other medications including Caltrate twice daily, vitamin D and iron supplementation. Further work-up included urinalysis which showed no UTI. Covid test negative. Chest x-ray unremarkable. Diet: AHA Activity: Fall precautions Followup: Fredis Peterson MD [Primary Care Provider] - Time spent managing pt's care (in minutes): 55
[2021-04-17 06:29] LABS: CKMB Creatine Kinase MB 5.9 ng/mL (1.0-3.6); Magnesium 2.4 mg/dL (1.8-2.4); Potassium 4.2 mmol/L (3.5-5.1); Thyroid Stimulating Hormone 1.69 uIU/mL (0.360-3.740); Troponin I 0.02 ng/mL (0.0-0.045)
--- NOTE | 2021-04-17 08:12 | EKG ---
Test Date: 2021-04-16 Test Time: 11:37:52 Balance Sheet Analyst: HAY MEASUREMENT RESULTS: Intervals: Rate: 127 [place]: QRSD: 80 QT: 296 QTc: 430 [place]: P: [place]: QRS: 37 T: 69 INTERPRETIVE STATEMENTS: Atrial fibrillation with rapid ventricular response Anterior infarct, age undetermined Abnormal ECG Compared to ECG 12/31/2018 09:29:53 No significant changes Electronically Signed On 04-17-21 08:09:43 CDT by Jeremy Joe
--- NOTE | 2021-04-17 08:25 | RAD REPORT ---
EXAM DESCRIPTION: [facility] Single View04/17/2021 5:48 am CLINICAL HISTORY: Chest pain COMPARISON: April 16, 2021 FINDINGS: Left base is hazy. Right lung appears clear. Heart is upper limits normal size IMPRESSION: Left base is hazy which may represent a combination of small left pleural effusion and i nfiltrate/atelectasis
[2021-04-17] MEDS: INSULIN -REGULAR HUMAN 50 UNIT/0.5 ML ML SQ SCH ×4 (08:59→21:00)
[2021-04-17] MEDS ORDERED: HOME MED 1 EA UNK (Esomeprazole Mag Trihydrate [Nexium] 40 MG Capsule.Dr) PO SCH (09:00)
[2021-04-17] MEDS ORDERED: CALCIUM CARBONATE PO SCH (09:00)
[2021-04-17] MEDS ORDERED: INSULIN GLARGINE 100 UNITS/ML SQ SCH ×2 (09:00→21:00)
[2021-04-17] MEDS: INSULIN GLARGINE 100 UNITS/ML SQ SCH ×2 (09:00→21:42)
[2021-04-17] MEDS ORDERED: VITAMIN D3 PO SCH (09:00)
[2021-04-17] MEDS: LOSARTAN POTASSIUM 50 MG TABLET PO SCH (09:01)
[2021-04-17] MEDS: FOLIC ACID 1 MG TABLET PO SCH (09:01)
[2021-04-17] MEDS: PANTOPRAZOLE 40MG TABLET PO SCH (09:01)
[2021-04-17] MEDS: GABAPENTIN 300 MG CAP PO SCH ×2 (09:01→21:44)
[2021-04-17] MEDS: CALCIUM CARB 500MG/VIT D 200 IU TAB PO SCH ×2 (09:01→21:45)
[2021-04-17] MEDS: THIAMINE HCL 100 MG TABLET PO SCH (09:01)
[2021-04-17] MEDS: METOPROLOL TAR 50 MG TAB PO SCH ×2 (09:02→21:43)
[2021-04-17] MEDS: NYSTATIN PWDR 100000 UNIT/GM TOP SCH ×2 (09:08→21:00)
[2021-04-17] MEDS: RIVAROXABAN 15 MG TABLET PO SCH (16:46)
[2021-04-17] MEDS ORDERED: RIVAROXABAN 20 MG TABLET PO SCH (17:00)
[2021-04-17] MEDS: VITAMIN D 1000 UNIT TAB PO SCH (17:13)
[2021-04-17] MEDS: FERROUS SULFATE 325 MG TAB PO SCH (17:13)
[2021-04-17] MEDS: FINASTERIDE 5 MG TAB PO SCH (17:13)
[2021-04-17] MEDS: TAMSULOSIN 0.4 MG SR CAP PO SCH (17:13)
[2021-04-17 17:21] LABS: Urine Appearance CLEAR (Clear); Urine Bilirubin NEGATIVE (Negative); Urine Blood TRACE (Negative); Urine Color YELLOW (Yellow); Urine Glucose 3+ (Negative); Urine Protein NEGATIVE (Negative); Urine Specific Gravity 1.025 (1.005-1.030); Urine Urobilinogen 0.2 mg/dL (0.2-1.0); Urine pH 5.5 (5.0-7.0)
[2021-04-17 17:26] LABS: Urine Microscopic Reflex ORDER UMIC
[2021-04-17 17:56] LABS: Urine Bacteria <20 /HPF (NONE SEEN); Urine RBC <5 /HPF (NONE SEEN)
[2021-04-17] MEDS ORDERED: HOME MED 1 EA UNK (Iron [Iron] 18 MG Tablet) PO SCH (18:00)
[2021-04-17] MEDS ORDERED: HOME MED 1 EA UNK (Pravastatin Sodium [Pravastatin Sodium] 40 MG Tablet) PO SCH (21:00)
[2021-04-17] MEDS ORDERED: ATORVASTATIN 10 MG TAB PO SCH (21:00)
--- NOTE | 2021-04-18 06:08 | P.DS ---
Admission Date: 04/16/21 Discharge Date: 04/18/21 Primary Care Provider: [facility] Disposition: TRANSFER TO ASSISTED Discharge Condition: GOOD Reason for Admission: Confusion Consultations: Cardiology-Dr. Joe Procedures: Medical Problem List: Atrial fibrillation with RVR on chronic anti coagulation therapy Hypertension CAD Hyperlipidemia Chronic renal disease stage III Diabetes mellitus type 2 with hyperglycemia Groin/inguinal yeast infection BPH GERD Brief History of Present Illness: 86-year-old male with history of atrial fibrillation on chronic anti coagulation therapy, CAD, hypertension, diabetes and chronic renal disease. Patient comes from assisted living facility. Patient was sent over for confusion and enlarged lymph nodes. 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 This was done early March. Since March 30 this blood sugars have been not well controlled. Patient also has been incontinent. Patient does not use adult diapers. No reports of fever, chills. Patient denies any fever, chills, chest pain or shortness of breath. Patient was sent over to the ER for further evaluation. Patient was evaluated. Urinalysis unremarkable. White count 13, hemoglobin 13. BUN of 50, creatinine 1.9 with a GFR 34. Glucose 324. Patient had atrial fibrillation with RVR. Rate was around 120s to 250s. Patient given metoprolol IV with improvement. Rate around 80-100. Patient was admitted for observation. Hospital Course: Patient presented with atrial fibrillation with RVR. Patient on chronic anticoagulation therapy. Patient also takes metoprolol 25 mg daily. Patient was treated in the emergency room. Patient was admitted for further evaluation and treatment. Increased dose of metoprolol was required. Patient was seen and evaluated by cardiology. No further intervention required. Patient in atrial fibrillation with rate controlled on higher dose of metoprolol. At discharge the patient will continue with metoprolol 50 mg 1 pill twice daily and Xarelto 15 mg at bedtime. Recommend to follow-up with cardiology in 1 to 2 weeks to follow-up this hospitalization. Patient with hypertension. As mentioned above metoprolol has been adjusted. At discharge patient will continue with metoprolol 50 mg 1 pill twice daily and losartan 50 mg daily. Recommend to maintain blood pressure less than 130/80. Further adjustment can be done at the correction. Patient with chronic renal disease. This appears stable. Mild dehydration noted. Encourage increase oral intake for at least several days. Recommend to recheck labBMP in 1 to 2 weeks to follow-up. Recommend no further use of muscle anti-inflammatories. Future medications would to be renally dosed. Patient would benefit with nephrology evaluation as an outpatient to further monitor and address. Patient with diabetes mellitus type 2 with hyperglycemia. Blood sugars have been elevated at the correction. Medications have been adjusted. Increase Lantus required. At discharge recommend to continue Lantus at 12 units subcu twice daily and glipizide 10 mg daily. Recommend to monitor blood sugar at least twice daily. Recommend to maintain blood sugar less than 140 fasting and less than 200 after meals. If blood sugars remain above 200 consistently then Lantus can be further adjusted. This can be done with the help of the correction physician. If blood sugars less than 100 then patient will need to hold glipizide and adjustment in Lantus may be required. Recommend to recheck hemoglobin A1c in 3 months to monitor his progress. Further adjustment in medication can be done by the correction physician. Patient with GERD. At discharge patient will continue with Nexium 40 mg daily. Patient with diabetic neuropathy. At discharge patient will continue with gabapentin 300 mg 1 pill twice daily. Patient with BPH. At discharge patient will continue with Flomax 0.4 mg daily and Proscar 5 mg daily. Patient with hyperlipidemia. At discharge patient will continue with pravastatin 40 mg daily. Patient with incontinence and yeast infection to the groin and inguinal region. Recommend adult briefs with frequent changes at the correction. Needs to keep area dry. Patient will continue with nystatin powder twice daily for at least 1 week. Better control of diabetes will help with this. Patient will continue with his other medications including Caltrate twice daily, vitamin D and iron supplementation. Further work-up included negative Covid test. Chest x-ray unremarkable. Urinalysis showed no evidence of infection. Vital Signs/Physical Exam: Temp Pulse Resp BP Pulse Ox 97.3 F 87 17 132/72 94 04/17/21 20:00 04/18/21 00:24 04/17/21 20:00 04/17/21 21:43 04/17/21 20:00 Laboratory Data at Discharge: WBC 12.10 K/uL (4.3-10.9) H 04/17/21 04:42 Hgb 14.0 g/dL (13.6-17.9) 04/17/21 04:42 Hct 43.2 % (39.6-49.0) 04/17/21 04:42 Plt Count 294 K/uL (152-406) 04/17/21 04:42 Sodium 138 mmol/L (136-145) 04/17/21 04:42 Potassium 4.2 mmol/L (3.5-5.1) 04/17/21 04:42 BUN 51 mg/dL (7-18) H 04/17/21 04:42 Creatinine 1.79 mg/dL (0.55-1.3) H 04/17/21 04:42 Glucose 270 mg/dL (74-106) H 04/17/21 04:42 Magnesium 2.4 mg/dL (1.8-2.4) 04/17/21 04:42 Troponin I 0.02 ng/mL (0.0-0.045) 04/17/21 04:42 Triglycerides 140 mg/dL (<150) 04/17/21 04:42 Cholesterol 134 mg/dL (<200) 04/17/21 04:42 HDL Cholesterol 28 mg/dL (40-60) L 04/17/21 04:42 Cholesterol/HDL Ratio 4.79 04/17/21 04:42 Home Medications: Pravastatin Sodium 40 mg PO BEDTIME 01/28/18 Tamsulosin [Flomax*] 0.4 mg PO DAILY 6PM 01/28/18 Esomeprazole Mag Trihydrate [Nexium] 40 mg PO DAILY 11/20/18 Iron 27 mg PO DAILY 6PM 11/20/18 Rivaroxaban [Xarelto*] 15 mg PO DAILY 11/20/18 Calcium Carbonate/Vitamin D3 [Calcium 600-Vit D3 800 Tablet] 1 each PO BID 04/16/21 Cholecalciferol (Vitamin D3) [Vitamin D 1000 Iu Tab*] 1,000 unit PO DAILY 6PM 04/16/21 Finasteride [Proscar*] 5 mg PO DAILY 6PM 04/16/21 Gabapentin 300 mg PO BID 04/16/21 Glipizide [Glipizide ER] 10 mg PO DAILY 04/16/21 Losartan Potassium 50 mg PO DAILY 04/16/21 Insulin Glargine,Hum.rec.anlog [Lantus Solostar] 12 unit SQ BID #1 packet 04/17/21 Metoprolol Tartrate [Lopressor*] 50 mg PO BID #60 tab 04/17/21 Nystatin Powder [Mycostatin (Powder)*] 1 appl TOP BID #1 btl 04/17/21 New Medications: Insulin Glargine,Hum.rec.anlog [Lantus Solostar] 12 unit SQ BID #1 packet Metoprolol Tartrate [Lopressor*] 50 mg PO BID #60 tab Nystatin Powder [Mycostatin (Powder)*] 1 appl TOP BID #1 btl Diet: AHA Activity: Fall precautions Followup: Jeremy Joe MD [ACTIVE - CAN ADMIT] - Fredis Peterson MD [Primary Care Provider] -
[2021-04-18] MEDS: PANTOPRAZOLE 40MG TABLET PO SCH (06:55)
[2021-04-18] MEDS: INSULIN -REGULAR HUMAN 50 UNIT/0.5 ML ML SQ SCH ×4 (07:30→20:44)
[2021-04-18] MEDS: INSULIN GLARGINE 100 UNITS/ML SQ SCH ×2 (09:12→20:43)
[2021-04-18] MEDS: METOPROLOL TAR 50 MG TAB PO SCH (09:12)
[2021-04-18] MEDS: THIAMINE HCL 100 MG TABLET PO SCH (09:13)
[2021-04-18] MEDS: CALCIUM CARB 500MG/VIT D 200 IU TAB PO SCH ×2 (09:13→20:41)
[2021-04-18] MEDS: GABAPENTIN 300 MG CAP PO SCH ×2 (09:13→20:41)
[2021-04-18] MEDS: LOSARTAN POTASSIUM 50 MG TABLET PO SCH (09:13)
[2021-04-18] MEDS: NYSTATIN PWDR 100000 UNIT/GM TOP SCH ×2 (09:13→20:45)
[2021-04-18] MEDS: FOLIC ACID 1 MG TABLET PO SCH (09:13)
[2021-04-18] MEDS ORDERED: NA CHLORIDE 0.9% 1,000 ML IV SCH (14:00)
[2021-04-18] MEDS ORDERED: NA CHLORIDE 0.9% 250 ML IV ONE ×2 (14:00→16:36)
--- NOTE | 2021-04-18 14:04 | P.PN ---
Subjective Date of Service: 04/18/21 Primary Care Provider: [facility] Chief Complaint: Confusion Subjective: Other (discharge was held yesterday due to poor mobility.) Physical Examination - Vital Signs Temperature: 97 F Blood Pressure: 112/69 Pulse: 102 Respirations: 20 Pulse Ox (%): 95 Assessment & Plan Discharge Plan: Other (jail facility) Plan to discharge in: 48 Hours Physician Review Additional Text: Physical exam: General: Patient alert, cooperative. Neck: Supple Heart: A. fib rate controlled Lungs: Clear to auscultation Abdomen: Soft nontender nondistended Extremities: Good range of motion. No focal deficits Impression Atrial fibrillation with RVR on chronic anti coagulation therapy Orthostatic hypotension Hypertension CAD Hyperlipidemia Acute on chronic renal disease stage III Diabetes mellitus type 2 with hyperglycemia Groin/inguinal yeast infection BPH GERD Diabetic neuropathy Plan: Atrial fibrillation with RVR on chronic anti coagulation therapy: Rate better controlled with adjustments in metoprolol. But blood pressure was slightly low. Discharge was held yesterday due to poor mobility. Physical therapy worked with the patient today. He required max assist. They also checked orthostatics which were abnormal. Physical therapy recommends skilled placement before going back to assisted living facility. Will give fluid bolus now. Will decrease metoprolol to 25 mg 1 pill twice daily. Continue with Xarelto. Will monitor medication for rate control. We will continue with IV fluids. Continue with physical therapy recommendations to pursue skilled placement. Will consult social science instructor to help with this. Will discuss with family. Left message with daughter to go over plan of care. Orthostatic hypotension: We will decrease metoprolol to 25 mg 1 pill twice daily. Fluid bolus given. We will continue with IV fluids. Continue with above plan of care for skilled placement. Hypertension: Will hold losartan medication. Will adjust metoprolol as recommended above. Continue IV fluids. May need to reinitiate medication or adjust per blood pressure. CAD: Continue with above plan of care. Hyperlipidemia: We will hold statin medication due to dehydration Acute on chronic renal disease stage III: Mild dehydration noted. Fluid bolus given. Will make adjustments to blood pressure medication. Will continue with IV fluids. Encourage oral intake. Recommend no further use of nausea anti- inflammatories. Diabetes mellitus type 2 with hyperglycemia: We will increase Lantus to 12 units subcu twice daily. Continue Accu-Cheks and monitor and adjust medication. Groin/inguinal yeast infection: Continue with nystatin cream BPH: Continue Flomax and Proscar GERD: Continue with Protonix. Diabetic neuropathy: Continue with gabapentin. DVT prophylaxis: Continue Xarelto CODE STATUS: Patient is DNR Advance care [id number] minutes: Physical therapy recommends skilled placement. Will recommend skilled placement. Will discuss with family. Will consult social science instructor to help with this. Time Spent Managing Pts Care (In Minutes): 55
[2021-04-18] MEDS: VITAMIN D 1000 UNIT TAB PO SCH (17:43)
[2021-04-18] MEDS: TAMSULOSIN 0.4 MG SR CAP PO SCH (17:43)
[2021-04-18] MEDS: FERROUS SULFATE 325 MG TAB PO SCH (17:43)
[2021-04-18] MEDS: FINASTERIDE 5 MG TAB PO SCH (17:43)
[2021-04-18] MEDS: RIVAROXABAN 15 MG TABLET PO SCH (17:43)
[2021-04-18] MEDS: METOPROLOL TAR 25 MG TAB PO SCH (20:41)
[2021-04-18 23:02] VITALS: BMI 28.6
[2021-04-19 04:41] VITALS: TEMP 97
[2021-04-19] MEDS: PANTOPRAZOLE 40MG TABLET PO SCH (05:51)
--- NOTE | 2021-04-19 06:03 | P.PN ---
Subjective Date of Service: 04/19/21 Primary Care Provider: [facility] Chief Complaint: Confusion Subjective: Improving, Doing well, Demented, Other ( Spoke to daughters concerning plan of care. Daughters recommend for patient to go back to [facility] with HH/PT with/without caregiver services. They do not recommend SNF. Daughters report that his baseline is that he is not able to walk on this own. He is using a wheelchair. This has been for 2 yr) Physical Examination - Vital Signs Temperature: 97 F Blood Pressure: 128/61 Pulse: 82 Respirations: 17 Pulse Ox (%): 96 Assessment & Plan [facility]charge Plan: [facility] Plan to discharge in: 24 Hours Physician Review Additional Text: Physical exam: General: Patient alert, cooperative. Patient with dementia Neck: Supple Heart: A. fib rate controlled Lungs: Clear to auscultation Abdomen: Soft nontender nondistended Extremities: Good range of motion. No focal deficits Impression Atrial fibrillation with RVR on chronic anti coagulation therapy Orthostatic hypotension Hypertension CAD Hyperlipidemia Acute on chronic renal disease stage III Diabetes mellitus type 2 with hyperglycemia Groin/inguinal yeast infection BPH GERD Diabetic neuropathy Vascular dementia Plan: Atrial fibrillation with RVR on chronic anti coagulation therapy: Patient was hydrated yesterday. Metoprolol was decreased. Blood pressure better. Will discontinue IV fluids. Spoke with daughters at length yesterday concerning patient. Daughters recommend for the patient to go back to [facility] with home health and physical therapy. Still try to determine whether he will need caregiver services. Daughters report that his baseline is that he has not been able to walk on his own for the last 2 years. He is primarily using a wheelchair. They do not want skilled placement especially with his underlying dementia. Patient appears overall stable to be transferred back to [facility]. Will discuss with nursing to get in contact with [facility] to see if they are ready for the patient to return. We will continue with decreased dose of metoprolol 25 mg 1 pill twice daily with parameters in place to hold if blood pressure systolic less than 110. Continue with Xarelto. Fall precautions in place. Family to consider hospice in the future if his condition declines in the future. Orthostatic hypotension: This has resolved. Patient given IV fluid bolus and IV fluids overnight. Blood pressure stable. Patient will continue with metoprolol at lower dose. Continue with parameters in place. Hypertension: Losartan was discontinued. Metoprolol was adjusted. Blood pressure improved. Overall stable for discharge.. CAD: Continue with above plan of care. Hyperlipidemia: We will hold statin medication due to dehydration Acute on chronic renal disease stage III: Overall stable. Much improved. Patient appears to be back to baseline. Diabetes mellitus type 2 with hyperglycemia: Continue with Lantus to 12 units subcu twice daily. Continue Accu-Cheks and monitor and adjust medication. Groin/inguinal yeast infection: Continue with nystatin cream BPH: Continue Flomax and Proscar GERD: Continue with Protonix. Diabetic neuropathy: Continue with gabapentin. Dementia likely vascular: Patient with vascular dementia. Continue with the blood plan of care. DVT prophylaxis: Continue Xarelto CODE STATUS: Patient is DNR Advance care [id number] minutes: Family does not want skilled placement. Patient appears to be at his baseline level. Family wants patient to go back to [facility] living. We will continue with home health and possible physical therapy. Will determine if patient will require caregiver services. Anticipate likely discharge today if the patient can return back to [facility] if not tomorrow. Time Spent Managing Pts Care (In Minutes): 55
[2021-04-19 06:15] LABS: Magnesium 2.2 mg/dL (1.8-2.4)
[2021-04-19] MEDS: INSULIN -REGULAR HUMAN 50 UNIT/0.5 ML ML SQ SCH ×3 (07:30→16:16)
[2021-04-19] MEDS: GABAPENTIN 300 MG CAP PO SCH (09:05)
[2021-04-19] MEDS: CALCIUM CARB 500MG/VIT D 200 IU TAB PO SCH (09:05)
[2021-04-19] MEDS: THIAMINE HCL 100 MG TABLET PO SCH (09:05)
[2021-04-19] MEDS: METOPROLOL TAR 25 MG TAB PO SCH (09:05)
[2021-04-19] MEDS: FOLIC ACID 1 MG TABLET PO SCH (09:05)
[2021-04-19] MEDS: INSULIN GLARGINE 100 UNITS/ML SQ SCH (09:06)
[2021-04-19] MEDS: NYSTATIN PWDR 100000 UNIT/GM TOP SCH (09:07)
[2021-04-19 12:16] VITALS: O2SAT 100
--- NOTE | 2021-04-19 13:43 | P.DS ---
Admission Date: 04/18/21 Discharge Date: 04/19/21 Primary Care Provider: [facility] Disposition: TRANSFER TO LONG-TERM Discharge Condition: GOOD Reason for Admission: Confusion Consultations: Cardiology-Dr. Joe Procedures: CXR: COMPARISON: Portable December 2018 FINDINGS: Lung volumes are very low. This accentuates baseline interstitial pattern and limits left base. Significant failure or volume overload are doubtful. No convincing evidence for focal infiltrate. Heart and vasculature are normal. No measurable pleural effusion and no pneumothorax. No acute bony abnormality seen. No acute aortic findings suspected. IMPRESSION: Limited portable study without acute cardiopulmonary finding. Impression Atrial fibrillation with RVR on chronic anti coagulation therapy Orthostatic hypotension Hypertension CAD Hyperlipidemia Acute on chronic renal disease stage III Diabetes mellitus type 2 with hyperglycemia Groin/inguinal yeast infection BPH GERD Diabetic neuropathy Vascular dementia Brief History of Present Illness: 86-year-old male with history of atrial fibrillation on chronic anti coagulation therapy, CAD, hypertension, diabetes and chronic renal disease. Patient comes from assisted living facility. Patient was sent over for confusion and enlarged lymph nodes. 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 This was done early March. Since March 30 this blood sugars have been not well controlled. Patient also has been incontinent. Patient does not use adult diapers. No reports of fever, chills. Patient denies any fever, chills, chest pain or shortness of breath. Patient was sent over to the ER for further evaluation. Patient was evaluated. Urinalysis unremarkable. White count 13, hemoglobin 13. BUN of 50, creatinine 1.9 with a GFR 34. Glucose 324. Patient had atrial fibrillation with RVR. Rate was around 120s to 250s. Patient given metoprolol IV with improvement. Rate around 80-100. Patient was admitted for observation. Hospital Course: Patient presented with confusion. Patient was found to have atrial fibrillation with RVR. Patient has chronic atrial fibrillation on chronic anticoagulation therapy. Medications were adjusted during the course of his stay. Patient did receive some IV fluids due to some orthostatic changes related to adjustment in his medication. Blood pressure now stabilized. At discharge patient will continue with metoprolol 25 mg 1 pill twice daily. Losartan has been discontinued. Patient will continue with Xarelto 15 mg daily for his chronic anticoagulation therapy. Patient will return back to [facility]. There was some discussion with family concerning possibility of skilled placement. Due to his vascular dementia and chronic diseases, family did not recommend skilled placement as he would be a poor candidate for recovery. Patient has been primarily bedbound for 2 years. He primarily uses the wheelchair. He has not been able to walk on his own for most 2 years. Patient appears to be at his baseline level. Patient will return back to assisted living facility. Consider home health and possible caregiver services if required.. This can be further addressed at the assisted living facility. Patient with hypertension. As mentioned above medications have been adjusted. Patient would longer take losartan. Patient will continue with metoprolol 25 mg 1 pill twice daily. Recommend to maintain blood pressure less than 130/80. Further adjustment can be done by fpc physician if blood pressures remain consistent above 140/90.. Patient with CAD, hyperlipidemia, and chronic renal disease stage III. At discharge patient will continue with above changes along with pravastatin 40 mg daily. Recommend no use of nonsteroidal anti-inflammatories. Future medications were to be renally dosed. Recommend to recheck labCBC, BMP in 2 to 4 weeks to monitor his progress. Patient with diabetes mellitus type 2 insulin-dependent. Hemoglobin A1c 10.8. Medications have been adjusted for better control. Lantus was increased to twice daily. At discharge patient will continue with glipizide 10 mg daily and Lantus 12 units subcu twice daily. Recommend to maintain blood sugar less than 140 fasting and less than 200 after meals. If blood sugar greater than 200 further adjustment in his Lantus may be required. This can be done with the help of the nursing physician. Recommend to recheck hemoglobin A1c every 3 months to monitor his progress. Recommend follow-up with PCP in 1 week to follow-up this hospitalization. Patient with yeast infection to the groin and inguinal region. Patient with history of incontinence. Recommend to continue with adult briefs and to change frequently. Patient will continue with nystatin powder to the area twice daily for at least 7 days. Area to remain dry. Patient with BPH. At discharge patient will continue with Flomax 0.4 mg daily and Proscar 5 mg daily. Patient with GERD. At discharge patient will continue with Nexium 40 mg daily. Patient with diabetic neuropathy. At discharge patient will continue with gabapentin 300 mg 1 pill twice daily. Patient will continue his other medications including iron supplementation, vitamin D. Patient with dementia likely vascular in nature. Continue with above recommendations. Advance care directives addressed in detail. Patient is DO NOT RESUSCITATE. If his condition were to decline in the future family would consider hospice. This can be further addressed by family in the future. Vital Signs/Physical Exam: Temp Pulse Resp BP Pulse Ox 97 F 82 17 128/61 96 04/19/21 12:40 04/19/21 12:40 04/19/21 12:40 04/19/21 12:40 04/19/21 12:40 General: Alert, In no apparent distress, Cooperative, Demented HEENT: Atraumatic Neck: Supple Respiratory: Clear to auscultation bilaterally, Normal air movement Cardiovascular: Irregular heart rate/rhythm (A. fib rate controlled) Gastrointestinal: Normal bowel sounds, No tenderness, No masses, No rebound, No guarding Musculoskeletal: No erythema, No tenderness, No warmth Integumentary: No tenderness/swelling, No erythema, No warmth, No cyanosis Neurological: Normal speech, Normal strength at 5/5 x4 extr, Normal tone, Dementia Laboratory Data at Discharge: WBC 12.10 K/uL (4.3-10.9) H 04/17/21 04:42 Hgb 14.0 g/dL (13.6-17.9) 04/17/21 04:42 Hct 43.2 % (39.6-49.0) 04/17/21 04:42 Plt Count 294 K/uL (152-406) 04/17/21 04:42 Sodium 140 mmol/L (136-145) 04/19/21 05:01 Potassium 4.0 mmol/L (3.5-5.1) 04/19/21 05:01 BUN 48 mg/dL (7-18) H 04/19/21 05:01 Creatinine 1.61 mg/dL (0.55-1.3) H 04/19/21 05:01 Glucose 155 mg/dL (74-106) H 04/19/21 05:01 Magnesium 2.2 mg/dL (1.8-2.4) 04/19/21 05:01 Troponin I 0.02 ng/mL (0.0-0.045) 04/17/21 04:42 Triglycerides 140 mg/dL (<150) 04/17/21 04:42 Cholesterol 134 mg/dL (<200) 04/17/21 04:42 HDL Cholesterol 28 mg/dL (40-60) L 04/17/21 04:42 Cholesterol/HDL Ratio 4.79 04/17/21 04:42 Home Medications: Pravastatin Sodium 40 mg PO BEDTIME 01/28/18 Tamsulosin [Flomax*] 0.4 mg PO DAILY 6PM 01/28/18 Esomeprazole Mag Trihydrate [Nexium] 40 mg PO DAILY 11/20/18 Iron 27 mg PO DAILY 6PM 11/20/18 Rivaroxaban [Xarelto*] 15 mg PO DAILY 11/20/18 Calcium Carbonate/Vitamin D3 [Calcium 600-Vit D3 800 Tablet] 1 each PO BID 04/16/21 Cholecalciferol (Vitamin D3) [Vitamin D 1000 Iu Tab*] 1,000 unit PO DAILY 6PM 04/16/21 Finasteride [Proscar*] 5 mg PO DAILY 6PM 04/16/21 Gabapentin 300 mg PO BID 04/16/21 Glipizide [Glipizide ER] 10 mg PO DAILY 04/16/21 Insulin Glargine,Hum.rec.anlog [Lantus Solostar] 12 unit SQ BID #1 packet 04/17/21 Nystatin Powder [Mycostatin (Powder)*] 1 appl TOP BID #1 btl 04/17/21 Metoprolol Tartrate [Lopressor*] 25 mg PO BID #60 tab 04/19/21 New Medications: Insulin Glargine,Hum.rec.anlog [Lantus Solostar] 12 unit SQ BID #1 packet Metoprolol Tartrate [Lopressor*] 25 mg PO BID #60 tab Nystatin Powder [Mycostatin (Powder)*] 1 appl TOP BID #1 btl Physician Discharge Instructions: Patient presented with confusion. Patient was found to have atrial fibrillation with RVR. Patient has chronic atrial fibrillation on chronic anticoagulation therapy. Medications were adjusted during the course of his stay. Patient did receive some IV fluids due to some orthostatic changes related to adjustment in his medication. Blood pressure now stabilized. At discharge patient will continue with metoprolol 25 mg 1 pill twice daily. Losartan has been discontinued. Patient will continue with Xarelto 15 mg daily for his chronic anticoagulation therapy. Patient will return back to [facility]. There was some discussion with family concerning possibility of skilled placement. Due to his vascular dementia and chronic diseases, family did not recommend skilled placement as he would be a poor candidate for recovery. Patient has been primarily bedbound for 2 years. He primarily uses the wheelchair. He has not been able to walk on his own for most 2 years. Patient appears to be at his baseline level. Patient will return back to assisted living facility. Consider home health and possible caregiver services if required.. This can be further addressed at the assisted living facility. Patient with hypertension. As mentioned above medications have been adjusted. Patient would longer take losartan. Patient will continue with metoprolol 25 mg 1 pill twice daily. Recommend to maintain blood pressure less than 130/80. Further adjustment can be done by fpc physician if blood pressures remain consistent above 140/90.. Patient with CAD, hyperlipidemia, and chronic renal disease stage III. At discharge patient will continue with above changes along with pravastatin 40 mg daily. Recommend no use of nonsteroidal anti-inflammatories. Future medications were to be renally dosed. Recommend to recheck labCBC, BMP in 2 to 4 weeks to monitor his progress. Patient with diabetes mellitus type 2 insulin-dependent. Hemoglobin A1c 10.8. Medications have been adjusted for better control. Lantus was increased to tw ice daily. At discharge patient will continue with glipizide 10 mg daily and Lantus 12 units subcu twice daily. Recommend to maintain blood sugar less than 140 fasting and less than 200 after meals. If blood sugar greater than 200 further adjustment in his Lantus may be required. This can be done with the help of the nursing physician. Recommend to recheck hemoglobin A1c every 3 months to monitor his progress. Recommend follow-up with PCP in 1 week to follow-up this hospitalization. Patient with yeast infection to the groin and inguinal region. Patient with history of incontinence. Recommend to continue with adult briefs and to change frequently. Patient will continue with nystatin powder to the area twice daily for at least 7 days. Area to remain dry. Patient with BPH. At discharge patient will continue with Flomax 0.4 mg daily and Proscar 5 mg daily. Patient with GERD. At discharge patient will continue with Nexium 40 mg daily. Patient with diabetic neuropathy. At discharge patient will continue with gabapentin 300 mg 1 pill twice daily. Patient will continue his other medications including iron supplementation, vitamin D. Patient with dementia likely vascular in nature. Continue with above recommendations. Advance care directives addressed in detail. Patient is DO NOT RESUSCITATE. If his condition were to decline in the future family would consider hospice. This can be further addressed by family in the future. Diet: AHA Activity: Fall precautions Followup: Jeremy Joe MD [ACTIVE - CAN ADMIT] - Fredis Peterson MD [Primary Care Provider] - Time spent managing pt's care (in minutes): 55
[2021-04-19 17:07] VITALS: BP 121/60
--- NOTE | 2021-04-21 11:17 | CON ---
Date of Consultation: 04/17/2021 History Of Present Illness: Atrial fibrillation. History Of Present Illness: Mr. Richards is 86. He is a do not resuscitate. Has a past medical history of dyslipidemia; diabetes; hypertension; chronic atrial fibrillation, on Xarelto. He has a history of chronic gastroesophageal reflux disease, benign prostatic hypertrophy. He was admitted to the [facility] basically complaining of shortness of breath that has been going on for a week without any naus ea, vomiting, diaphoresis, PND, orthopnea, pedal edema, palpitations, or syncope. His main complaint was basically just shortness of breath and generalized weakness. When he came to the emergency room , his pulse was 92, which is chronic for him. He was afebrile and had a normal blood pressure with a normal O2 saturation. Past Medical History: As stated above. Allergies: INCLUDE AMIODARONE, PENICILLIN, AND PREDNISONE. Review of Systems: Negative. Social History: Positive for being a DNR. Family History: Noncontributory. Medications: At home include Lipitor, insulin, losartan, metoprolol, pantoprazole, tamsulosin, and X arelto 15 mg daily. Physical Examination: Vital Signs: Stable except for the AFib. HEENT: Negative. Neck: Supple. No bruit. Chest: Clear to auscultation and percussion/. Cardiac: Revealed an irregularly irregular rhythm and rate. No murmurs, gallops, or rubs. Abdomen: Benign. Extremities: Revealed no clubbing, cyanosis, or edema. Diagnostic Data: with a creatinine of 1.61. His glucose was 175. His troponin was negat godfrey. His chest x-ray was negative. EKG showed atrial fibrillation. Impression And Plan: Chronic atrial fibrillation with rapid ventricular response. The patient does not tolerate amiodarone. He has been on metoprolol. Will increase the dose, double his dose from [facility] medication. Continue the Xarelto. Mr. Richards is a DNR so didn't want to embark on any extensive ca rdiac workup on him at this point. His diabetes is fairly well controlled. His blood pressure is we ll controlled. His dyslipidemia is well controlled. I will discuss the case with Dr. Caldera and the patient can go home in a day or two. NB/MODL Voice ID: [id number] Report ID: [id number]
== END 2021-04-19 16:23 | disposition home health service (06) | DRG 309 ==
LOC: ER 11:27 → ERHOLD 17:30 → 2ND 20:08 → OBSVTOIN 04-18 09:05
PROVIDERS: ADMIT Family Medicine; ATTEND Family Medicine
DX: I48.20 Chronic atrial fibrillation, unspecified (principal); N17.9 Acute kidney failure, unspecified; I95.1 Orthostatic hypotension; I25.10 Atherosclerotic heart disease of native coronary artery without angina pectoris; E78.5 Hyperlipidemia, unspecified; I12.9 Hypertensive chronic kidney disease with stage 1 through stage 4 chronic kidney disease, or unspecified chronic kidney disease; E11.22 Type 2 diabetes mellitus with diabetic chronic kidney disease; E11.65 Type 2 diabetes mellitus with hyperglycemia; N18.30 Chronic kidney disease, stage 3 unspecified; B37.2 Candidiasis of skin and nail; N40.0 Benign prostatic hyperplasia without lower urinary tract symptoms; K21.9 Gastro-esophageal reflux disease without esophagitis; E11.40 Type 2 diabetes mellitus with diabetic neuropathy, unspecified; F01.50 Vascular dementia, unspecified severity, without behavioral disturbance, psychotic disturbance, mood disturbance, and anxiety; R32 Unspecified urinary incontinence; Z79.01 Long term (current) use of anticoagulants; Z74.01 Bed confinement status; Z66 Do not resuscitate; Z20.822 Contact with and (suspected) exposure to COVID-19; Z88.0 Allergy status to penicillin
CPT/HCPCS: 36415; 71045; 80048; 80053; 80061; 81003; 81015; 82550; 82553; 82947; 83036; 83615; 83735; 84439; 84443; 84484; 85025; 87070; 87077; 87186; 87205; 93005; 96374; 97112; 97163; 97530; 99285; G0378; J1815; J7030; J7050; U0003